=== PATIENT | female | born 1970 | race Caucasian/White ===

== ENCOUNTER 2019-12-24 08:28 | Emergency (ER) | payer OTHER, SELFPAY ==
[2019-12-24 09:10] VITALS: BP 144/92; PULSE 92; RESP 16; TEMP 37.2; O2SAT 96
--- NOTE | 2019-12-24 09:33 | ED.LOWEXIN ---
HPI - Extremity Injury (Lower) General Chief Complaint: Extremity Problem,Nontraumatic Stated Complaint: right knee pain Time Seen by Provider: 12/24/19 09:21 Source: patient and RN notes reviewed Mode of arrival: ambulatory History of Present Illness HPI Narrative: Patient presents today complaining of right knee pain. 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 She felt a pop in her knee and had subsequent swelling and pain. Over the weekend, she has compressed it, applied ice, limited her activity prior, and occasionally took ibuprofen. States her knee is improved, but pain increases when she is up and walking. She walks up and down stairs many times at work, as there is not an elevator in her school building. She does not plan to file Workmen's Compensation claim. States that she was told by her principal that she needed a note to return to work, detailing any restrictions. MD complaint: knee injury Related Data Home Medications Medication Instructions Recorded Confirmed lisinopril 20 1 tablet PO DAILY 10/30/19 12/24/19 mg-hydrochlorothiazide 25 mg tablet Allergies Allergy/AdvReac Type Severity Reaction Status Date / Time No Known Allergies Allergy Unknown Verified 12/24/19 09:15 Review of Systems Review of Systems: Narrative: CONSTITUTIONAL: Denies body aches, fever, chills, or sweats. EYES: Denies visual changes, redness, or discharge. ENT: Denies rhinorrhea, congestion, sore throat, or otalgia. CARDIOVASCULAR: Denies chest pain, palpitations, or edema. RESPIRATORY: Denies cough or dyspnea. GASTROINTESTINAL: Denies abdominal pain, nausea, vomiting, or diarrhea. GENITOURINARY: Denies dysuria or hematuria. SKIN: Denies rash, itching, or wounds. MUSCULOSKELETAL: Denies back pain, or myalgia.+ Right knee pain NEUROLOGIC: Denies headache, numbness, tingling, or weakness. PSYCH: Denies depression or anxiety. [facility] Past Medical History Medical History (Updated 12/24/19 @ 09:43 by Altagracia Ramachandran, [facility], ) Hypertension Social History Social History (Updated 10/30/19 @ 16:14 by Letitia Holliday) Smoking status: Never smoker Second hand tobacco smoke exposure: No Alcohol intake: current Substance use: never Substance use type: does not use Gender identity (if verbalized by the patient): Female Comments At time of signature, I have reviewed and agree with nursing past medical, surgical, social and family history unless otherwise noted. Please see nursing chart for further information. There is no relevant family history pertinent to the presenting complaint Exam Narrative: Exam Narrative: GENERAL: Well-appearing, well-nourished, and in no acute distress. HEAD: Normocephalic, atraumatic. EYES: EOMI. No redness or drainage. Conjunctivae normal. ENT: Mucous membranes pink and moist. NECK: Normal AROM. CHEST: No respiratory distress. EXTREMITIES: Right knee: Tenderness to the medial and superior aspect of the knee. Scant edema noted. No abnormal movement of the patella. No patellar tenderness. No tenderness of the patellar tendon. No posterior tenderness. Full AROM without increased pain. Distal sensation intact. Capillary refill normal. Pedal pulse normal.. SKIN: Warm, dry, no rash. NEURO: No focal deficits. Alert and oriented x3. Gait steady. PSYCH: Normal affect. No signs of depression or anxiety. Course Vital Signs Vital signs: Vital Signs Temperature 99.0 F 12/24/19 09:10 Pulse Rate 92 12/24/19 09:10 Respiratory Rate 16 12/24/19 09:10 Blood Pressure 144/92 H 12/24/19 09:10 Pulse Oximetry 96 12/24/19 09:10 Temperature 99.0 F 12/24/19 09:10 Pulse Rate 92 12/24/19 09:10 Respiratory Rate 16 12/24/19 09:10 Blood Pressure 144/92 H 12/24/19 09:10 Pulse Oximetry 96 12/24/19 09:10 Reviewed. Pt has been instructed to follow up with her PCP regarding her elevated b
== END 2019-12-24 09:50 | disposition home or self-care (01) ==
PROVIDERS: Emergency Provider Nurse Practitioner; PCP Family Medicine
DX: M25.561 Pain in right knee (principal); I10 Essential (primary) hypertension; M19.90 Unspecified osteoarthritis, unspecified site; E28.2 Polycystic ovarian syndrome
CPT/HCPCS: 99211; G0463

== ENCOUNTER → 2020-02-07 10:51 | Outpatient (CLI) | payer OTHER, SELFPAY ==
--- NOTE | ~2020-02-07 | MM_ITS ---
EXAMINATION: MM screening mely BI w madeleine HISTORY: Screening mammogram TECHNIQUE: Craniocaudal and mediolateral oblique 3-D tomosynthesis images were obtained and synthetic 2-D images were generated. CAD analysis was submitted and interpreted. COMPARISON: Comparison to multiple prior studies sequentially, with oldest reviewed study dated 02/17. BREAST PARENCHYMAL COMPOSITION: There are scattered areas of fibroglandular density. FINDINGS: Focal right breast mass upper outer quadrant with associated calcifications is unchanged. T here is no evidence of suspicious mass, calcification, or architectural distortion to suggest maligna ncy in either breast. There has been no suspicious interval change. IMPRESSION: 1. No mammographic evidence of malignancy. 2. Recommend routine screening mammography in one year. BI-RADS Category 2: Benign finding(s). Reviewed, dictated and finalized at location A.
== END ==
PROVIDERS: PCP Family Medicine; Visit Provider Nurse Practitioner Obstetrics & Gynecology
DX: Z12.31 Encounter for screening mammogram for malignant neoplasm of breast (principal)
CPT/HCPCS: 77063; 77067

== ENCOUNTER 2021-01-13 15:03 | Outpatient (RCR) | payer OTHER, SELFPAY ==
[2021-01-13 15:15] VITALS: BMI 50.8
== END 2021-03-30 10:29 | disposition home or self-care (01) ==
LOC: ANHDMC 15:03
PROVIDERS: PCP Family Medicine; Visit Provider Family Medicine
DX: E11.9 Type 2 diabetes mellitus without complications (principal); Z71.3 Dietary counseling and surveillance
CPT/HCPCS: 97802

== ENCOUNTER → 2021-02-20 15:05 | Outpatient (CLI) | payer OTHER, SELFPAY ==
--- NOTE | ~2021-02-20 | MM_ITS ---
EXAMINATION: MM screening [facility] BI w madeleine HISTORY: Screening mammogram TECHNIQUE: Craniocaudal and mediolateral oblique 3-D tomosynthesis images were obtained and synthetic 2-D images were generated. CAD analysis was submitted and interpreted. COMPARISON: 02/07/2020, 03/09/2017, 02/17/2017 BREAST PARENCHYMAL COMPOSITION: There are scattered areas of fibroglandular density. FINDINGS: Multiple oil cysts are seen throughout both breasts. There is stable focal asymmetry in the upper outer quadrant of the right breast. There is no evidence of suspicious mass, calcification, or architectural distortion to suggest malignancy in either breast. There has been no suspicious interv al change. IMPRESSION: 1. No mammographic evidence of malignancy. 2. Recommend routine screening mammography in one year. BI-RADS Category 2: Benign finding(s). Reviewed, dictated and finalized at location A.
== END ==
PROVIDERS: PCP Family Medicine; Visit Provider Nurse Practitioner Obstetrics & Gynecology
DX: Z12.31 Encounter for screening mammogram for malignant neoplasm of breast (principal)
CPT/HCPCS: 77063; 77067

== ENCOUNTER 2021-09-26 10:18 | Emergency (ER) | payer OTHER, SELFPAY ==
--- NOTE | ~2021-09-26 | CT_ITS ---
EXAMINATION: CT lumbar spine wo con DATE: 09/26/2021 10:59 INDICATION: Left low back pain radiating to the left leg TECHNIQUE: Computed tomography (CT) of the lumbar spine was performed without intravenous contrast. A utomated exposure control and iterative reconstruction technique were employed. The dose-length produ ct was 1404.31 mGy-cm. COMPARISON: None FINDINGS: 3 mm anterolisthesis L4 on L5. Alignment is otherwise normal. Small Schmorl's nodes along the superio r endplates of T12 and L1. Vertebral body heights are normal. Moderate to severe disc height loss at L5-S1. Mild disc height loss at L2-L3, L3-L4 and L4-L5. Diffuse hepatic steatosis. 2 mm nonobstructin g stone at the lower pole of the right kidney. Incompletely visualized approximately 10 cm uterine fi broid. Normal appendix. Paravertebral soft tissues are unremarkable. The following disc levels are sp ecifically discussed: T11-T12: Disc is mildly bulging. There is mild bilateral facet joint osteoarthritis. There is mild ri ght neural foraminal stenosis. There is no central canal stenosis. T12-L1: The disc does not extend beyond the endplate margin. There is mild bilateral facet joint oste oarthritis. There is no neural foraminal stenosis. There is no central canal stenosis. L1-L2: Disc is mildly bulging. There is no facet joint osteoarthritis. There is no neural foraminal s tenosis. There is no central canal stenosis. L2-L3: Disc is bulging. There is mild bilateral facet joint osteoarthritis. There is no neural forami nal stenosis. There is mild central canal stenosis. L3-L4: Disc is bulging. There is moderate left and mild right facet joint osteoarthritis. There is mi ld bilateral neural foraminal stenosis. There is mild central canal stenosis. L4-L5: Disc is bulging. There is moderate to severe bilateral facet joint osteoarthritis. There is mo derate bilateral neural foraminal stenosis. There is mild central canal stenosis. L5-S1: Disc is bulging. There is moderate left and severe right facet joint osteoarthritis. There is moderate bilateral neural foraminal stenosis. There is no central canal stenosis. IMPRESSION: 1. Moderate lumbar spondylosis. No acute osseous abnormality. 2. 10 cm uterine fibroid. Reviewed, dictated and finalized at location A.
[2021-09-26 10:22] VITALS: BP 129/73; PULSE 84; RESP 18; TEMP 36.7; O2SAT 100
--- NOTE | 2021-09-26 10:44 | ED.BACK ---
HPI - Back Pain/Injury General Chief Complaint: Back Pain/Injury Stated Complaint: BACK PAIN, LEG NUMBNESS Time Seen by Provider: 09/26/21 10:20 Source: patient Mode of arrival: wheelchair Limitations: no limitations History of Present Illness HPI Narrative: This is a 50-year-old female that presents to the emergency department for low back pain worsening over the last week. No recent injury or trauma. Reports the pain radiates into her left buttock and down her left leg. Pain is worse with movement and relieved with rest. Reports today the pain was making it difficult for her to ambulate which prompted her to be seen. She has been taken [id number] Tylenol with little relief. She does have an appointment to see orthopedics, but it is not till the end of the month. Denies fever, urinary symptoms, saddle anesthesia, or bowel/bladder incontinence. Related Data Allergies Allergy/AdvReac Type Severity Reaction Status Date / Time No Known Allergies Allergy Unknown Verified 07/01/21 15:46 Review of Systems Review of Systems: CONSTITUTIONAL: Denies fever SKIN: Denies rash MUSCULOSKELETAL: Reports back pain, joint pain, and myalgia. NEUROLOGIC: Denies numbness, or weakness. All systems reviewed & are unremarkable except as noted in HPI and below PMFSH Past Medical History Medical History Controlled diabetes mellitus type II without complication Hypertension Social History Social History Smoking status: Never smoker Second hand tobacco smoke exposure: No Alcohol intake: current Substance use: never Substance use type: does not use Gender identity (if verbalized by the patient): Female Spiritual care concerns: No Exam Narrative: GENERAL: Well-appearing, obese, and in no acute distress. HEAD: Normocephalic, atraumatic. EYES: EOMI. CHEST: Clear to auscultation. No respiratory distress. No wheezes rales or rhonchi HEART: Regular rate and rhythm. No murmur heard. Normal peripheral pulses. BACK: No midline spinal tenderness EXTREMITIES: Normal range of motion. No edema. Strength equal in bilateral lower extremities (5/5). Normal DP pulses. Normal sensation SKIN: Warm, dry, no rash. NEURO: No focal deficits. Alert and oriented x3. PSYCH: Normal mood and affect Course Vital Signs Vital signs: Vital Signs Temperature 98.0 F 09/26/21 10:22 Pulse Rate 84 09/26/21 10:22 Respiratory Rate 18 09/26/21 10:22 Blood Pressure 129/73 09/26/21 10:22 Pulse Oximetry 100 09/26/21 10:22 Temperature 98.0 F 09/26/21 10:22 Pulse Rate 84 09/26/21 10:22 Respiratory Rate 18 09/26/21 10:22 Blood Pressure 129/73 09/26/21 10:22 Pulse Oximetry 100 09/26/21 10:22 MDM - Back Pain/Injury MDM Narrative Medical decision making narrative: Patient presents to the ER for low back pain worsening over the last week. No recent injury or trauma. She is neurologically intact. CT scan of lumbar spine shows moderate lumbar spondylosis. No acute osseous abnormalities. She has a 10 cm uterine fibroid. Patient and family updated on case findings. She was instructed on care of sciatica. Will be started on a steroid taper. Instructed to follow-up with orthopedics as scheduled. She was given warnings to return to the ER Imaging Data Radiologist's impression: ITS Impressions Lumbar Spine CT 09/26/21 11:03 IMPRESSION: 1. Moderate lumbar spondylosis. No acute osseous abnormality. 2. 10 cm uterine fibroid. Critical Care Time Critical Care Time Critical Care Time: No Discharge Plan Discharge Clinical Impression: Sciatica Qualifiers: Laterality: left Qualified Code(s): M54.32 - Sciatica, left side Fibroid, uterine Qualifiers: Uterine leiomyoma location: unspecified location Qualified Code(s): D25.9 - Leiomyoma of uterus, unspecified Patient Disposition: Home, Self
[2021-09-26] MEDS: predniSONE 20 MG TABLET 60 MG PO (11:00)
[2021-09-26] MEDS: KETOROLAC (*BKC) 60 MG/2 ML VIAL IM (11:07)
[2021-09-26] MEDS: diazePAM INJ (*CRX) 10 MG/2 ML SYRINGE 5 MG IM (11:07)
== END 2021-09-26 12:22 | disposition home or self-care (01) ==
PROVIDERS: Emergency Provider Emergency Medicine; PCP Family Medicine
DX: M54.42 Lumbago with sciatica, left side (principal); D25.9 Leiomyoma of uterus, unspecified; I10 Essential (primary) hypertension; E11.9 Type 2 diabetes mellitus without complications; M47.816 Spondylosis without myelopathy or radiculopathy, lumbar region
CPT/HCPCS: 72131; 96372; 99284; J1885; J3360; J7512

== ENCOUNTER 2021-10-23 00:26 | Emergency (ER) | payer OTHER, SELFPAY ==
[2021-10-23 00:28] VITALS: BP 150/96; PULSE 110; RESP 19; TEMP 36.6; O2SAT 99
--- NOTE | 2021-10-23 01:03 | PC.NURSE ---
Pt to INTAKE desk and states she is not willing to wait for hours, I will just go to another hospital. Pt to car w/ at side.
== END 2021-10-24 02:12 | disposition left against medical advice (07) ==
LOC: ANHED 01:07
PROVIDERS: PCP Family Medicine
DX: Z53.21 Procedure and treatment not carried out due to patient leaving prior to being seen by health care provider (principal)
CPT/HCPCS: 99199

== ENCOUNTER 2021-12-04 11:53 | Outpatient (CLI) | payer OTHER, SELFPAY ==
--- NOTE | 2021-12-04 11:59 | ECG_ITS ---
Measurements Intervals [place] Rate: 96 P: 56 [place]: 139 QRS: 20 QRSD: 90 T: 73 QT: 336 QTc: 425 Interpretive Statements SINUS RHYTHM DELAYED PRECORDIAL R/S TRANSITION BORDERLINE T WAVE ABNORMALITY- HIGH LATERAL LEADS BASELINE ARTIFACT- II, III, AVR, AVF BORDERLINE ECG Electronically Signed On 12-04-2021 12:47:20 SANITOR by Brenton Nunez D.O.
== END 2021-12-04 11:54 | disposition home or self-care (01) ==
PROVIDERS: PCP Family Medicine; Visit Provider Obstetrics & Gynecology
DX: Z01.818 Encounter for other preprocedural examination (principal); E11.9 Type 2 diabetes mellitus without complications; D21.9 Benign neoplasm of connective and other soft tissue, unspecified
CPT/HCPCS: 36415; 86850; 86900; 86901; 93005

== ENCOUNTER 2021-12-08 00:39 | Day surgery (SDC) | payer OTHER, SELFPAY ==
[2021-12-03 11:10] VITALS: BMI 48.6
--- NOTE | 2021-12-03 11:31 | PC.NURSE ---
Report to the Outpatient Waiting Room, entrance under the green pavilion located off [facility], at time 9:30 on date 12/08/21. OR Time: 11:30. - You will be asked a series of questions to screen for COVID 19 for your protection. - A mask is required within the hospital. - No visitors are allowed at this time. Preoperative COVID Testing Requirements: No COVID Test needed if: (proof is required; if not received patient will have Rapid Test prior to entry) - Patient has received COVID Vaccine at least 14 days prior to procedure date or - Patient has positive COVID test result within last 90 days of surgery date. COVID Test needed if above criteria is not met Patients may have clear liquids (water, carbonated beverages, clear teas, apple juice) until 3 hours prior to surgery (8:30) with a maximum of 20 ounces. - No food from midnight until time of surgery Take the following medications with a SIP of water the morning of surgery: ESCITALOPRAM Medications to discontinue per physician: VITAMINS/SUPPLEMENTS Date to take last dose: 12/04/21 Please no make-up, nail ukrainian, hairspray, perfume, deodorant, or body powder the day of surgery. No jewelry (including any body piercings) or valuables the day of surgery, leave them at home. Please take a shower or bath the night before, or the morning of, surgery with an antibacterial soap. Wear comfortable, loose fitting clothing. - Jewelry must be removed prior to entering the operating room. Rings and piercings that are not removed may be cut off. - The hospital will not accept responsibility for valuables. - Please leave all valuables, including medications, at home the day of surgery. If you are going home after surgery, a licensed test driver must drive you home. - NO public transportation without another adult. - We recommend that an adult stay with you for 24 hours following discharge. - We also recommend that you do not drive, make important decision, drink alcoholic beverages, or take any drugs that were not prescribed by your health care provider for at least 24 hours after your discharge time. Follow any additional instructions given to you from your surgeon. Telephone instructions given to DEEPIKA CHACON and asked if any additional questions and then verbalized understanding. Patient advised to call surgeon office or pre surgery nurse liaison [phone] if any additional questions.
--- NOTE | 2021-12-07 13:46 | WPDANESEPPF ---
Anes - Initial Pre Proc Eval Procedure: Operation Date: 12/08/21 11:30 Proposed Procedures p Total Laparoscopic Hysterectomy - Carlos Kimbrough MD Date/Time: 12/07/21 13:46 Surgeon: Carlos Kimbrough MD Pre Op Diagnosis: Fibroid Uterus Patient Data Age: 51 Gender: F Height: 1.65 m Weight: 132.45 kg Allergies Allergy/AdvReac Type Severity Reaction Status Date / Time No Known Allergies Allergy Unknown Verified 12/08/21 09:38 Home Medications Medication Instructions Recorded Confirmed Type escitalopram oxalate 5 mg tablet 5 mg PO DAILY #90 tablet 08/17/21 12/08/21 Rx lisinopril 30 mg tablet 30 mg PO DAILY #30 tablet 11/11/21 12/08/21 Rx multivitamin 1 tablet PO DAILY 12/03/21 12/08/21 History dulaglutide 0.75 mg/0.5 mL 0.75 mg SUBCUT WEEKLY #2 ml 12/04/21 12/08/21 Rx subcutaneous pen injector Patient hx anesthesia problems: none Family hx anesthesia problems: none Results Review: All pre-operative results and documents have been reviewed as part of the pre-operative evaluation. [facility] Past Medical History Medical History (Updated 12/07/21 @ 13:51 by Austin Almendarez MD) Controlled diabetes mellitus type II without complication Degenerative joint disease of left hip Diabetes mellitus out of control Essential (primary) hypertension Fibroid Hypertension Left hip pain Lumbar disc disease Morbid obesity with BMI of 40.0-44.9, adult Pure hyperglyceridemia Surgical History Surgical History History of lithotripsy History of partial hysterectomy Family History Family History Unknown Hypertension Mom Cardiovascular disease Mom Diabetes mellitus grandparents, aunts HLD (hyperlipidemia) MOM Father Chronic leukemia Social History Social History Smoking status: Never smoker Second hand tobacco smoke exposure: No Alcohol intake: current Alcohol use details: VERY RARE Substance use: never Substance use type: does not use Living arrangements: with family Gender identity (if verbalized by the patient): Female Spiritual care concerns: No Anes - Eval Final PreProcedure Day of Procedure 12/07/21 13:46 Patient weight: obese Heart: regular rate and rhythm Lungs: clear to auscultation and normal air movement Airway: Mallampati scale class II Neurological: alert and oriented Last oral intake: >/= 8 hours ASA classification: III Emergent: no Anesthetic plan: proceed Anesthesia type and monitoring: general ETT Results Review: All pre-operative results and documents have been reviewed as part of the pre-operative evaluation. Informed Consent: The patient's anesthetic plan and its attendant risks and benefits were discussed with the patient/family/POA. Questions were solicited and answers provided to the satisfaction of the patient/family/POA.
[2021-12-08] VITALS (11 sets, daily range): BP systolic 105–177; BP diastolic 61–98; PULSE 81–104; RESP 14–18; TEMP 36.1–36.9; O2SAT 93–100
[2021-12-08] MEDS: ACETAMINOPHEN 500 MG TABLET 1000 MG PO (09:44)
[2021-12-08 10:14] LABS: Glucose Point of Care 108 mg/dl (65-105)
[2021-12-08] MEDS: KETOROLAC 15 MG/ML VIAL (*BKC) IV PUSH (10:16)
[2021-12-08] MEDS: LACTATED RINGERS 1,000 ML 30 ML IV CONT ×2 (10:16→14:39)
--- NOTE | 2021-12-08 10:26 | WPDHPUPDATE1 ---
History and Physical Update Update Date/Time: 12/08/21 10:26 History and Physical has been reviewed, including an updated exam of the patient. There are NO changes in the patient's condition. Risks, benefits, and alternatives have been discussed and questions answered. Patient agrees to proceed with procedure.
[2021-12-08] MEDS: ceFAZolin 3 GM/D5W 100 ML 100 ML IVPB (10:48)
--- NOTE | 2021-12-08 14:23 | W.PM.PROC2 ---
Procedure Note - Detailed Date of Procedure 12/08/21 Pre-op Diagnosis Fibroid Uterus , pelvic pain Post-op Diagnosis same Procedure Performed Total laparoscopic hysterectomy and bilateral salpingectomy. Surgeon Carlos Kimbrough MD Anesthesia general Indications Uterine myoma, pelvic pain Findings Very large fibroid uterus, absent tubes and ovaries Description of Procedure This patient was taken to the operating room. She was prepped and draped in the dorsal lithotomy position after induction of general anesthesia. A 5 mm skin incision was made in the left upper quadrant the abdomen. A 5 mm trocar was inserted into the intrauterine cavity under direct visualization of the scope. Pneumoperitoneum was achieved. A left lower quadrant 11 mm incision was made with scalpel. An 11 mm trocar was inserted into the anterior abdominal cavity under direct visualization the scope. A 5 mm infraumbilical incision was made with a scalpel and a 5 mm trocar was inserted the intra-abdominal cavity under direct visualization of the scope. The left upper quadrant incision was moved forward with another incision and trocar placement later in the case. A right lower quadrant trocar was inserted In identical fashion to the others. expected was placed in vagina and a tenaculum was placed on the anterior cervical vaginal juncture. In a stepwise fashion along the lateral aspects of the uterus the round ligament and broad ligaments were cauterized transected down to the level of the uterine arteries in a stepwise fashion. A bladder flap was created as the bladder was moved distally to the end of the cervix and over the Tenaculum. The bilateral uterine arteries were cauterized and transected. The uterus was then amputated from the cervix. Colpotomy was then performed down on to the tenaculum.. In a circumferential fashion the vagina was transected using unipolar cautery. The cervix was then placed in the vagina and a pneumo occluder was placed in the vagina as well transvaginally. cervix was placed in the vagina from the pelvis. The vagina was then closed with a 0 V lock suture running fashion. The uterine fibroid was removed from inside the uterus using unipolar cautery to cut across the uterine fundus. Using sharp and blunt dissection the Fibroid was removed from the uterus.. Cautery was required to also free up fibroid. A small 7 cm low abdominal incision was made /transverse. Was made with a scalpel on the skin the. This was carried down the level the fascia the knife. The fascia incised in the midline. The fascia was the vaginal incision was then extended laterally with Esposito scissors. The rectus muscles were . The preperitoneal fat peritoneum was dissected bluntly and the peritoneal cavity is entered bluntly. The peritoneal incision was centered laterally. The fibroid in the uterus were grasped and taken out through this small incision just big enough for the hand. The fascia was closed with 0 Vicryl running lock fashion. The subcutaneous fat was closed with 3-0 Vicryl interrupted fashion. The skin was closed with subcuticular 4 Monocryl covered with Dermabond. The pelvis was irrigated with copious amounts antibiotic irrigation. The ureters were again examined and found to be intact and flowing freely under the uterine arteries into the bladder. The bladder was intact. It was examined directly. The vagina was irrigated with Betadine solution after removal of the Pneumo occluder. The patient was taken to recovery room. She was stable condition. Sponge lap and needle counts were correct x2. Estimated Blood Loss 600 Urine Output -800.0 Drains Yes Packing No Pathology yes Complications No immediate complications Condition stable Disposition floor
[2021-12-08 15:04] LABS: Glucose Point of Care 156 mg/dl (65-105)
[2021-12-08] MEDS: SODIUM CHLORIDE 0.9% IV 1,000 ML 100 ML IV CONT (16:35)
[2021-12-08] MEDS: KETOROLAC 30 MG/ML VIAL (*BKC) IV PUSH ×2 (17:27→23:15)
[2021-12-08] MEDS: HYDROcodone/acetaminophen (*CRX) 10-325 MG TABLET 1 TAB PO (20:13)
[2021-12-08] MEDS: HYDROcodone/acetaminophen (*CRX) 5-325 MG TABLET 1 TAB PO (23:15)
[2021-12-09] MEDS: HYDROcodone/acetaminophen (*CRX) 5-325 MG TABLET 1 TAB PO ×2 (02:25→05:48)
[2021-12-09 03:30] VITALS: BP 123/60; PULSE 99; RESP 16; TEMP 37.1; O2SAT 98
[2021-12-09 05:44] LABS: Basophils Percent Auto 0.3 % (0.2-1.2); Eosinophils Absolute Auto 0.1 K/mm3 (0-0.3); Eosinophils Percent Auto 0.7 % (0-4.4); Hematocrit 33.5 % (37.0-47.0); Hemoglobin 10.7 g/dL (12.0-15.0); Immature Granulocyte Absolute 0.03 K/mm3 (0.00-0.031); Immature Granulocyte Percent A 0.3 % (0-0.5); Lymphocytes Absolute Auto 2.08 K/mm3 (0.9-3.2); Lymphocytes Percent Auto 21.2 % (18.3-44.2); Mean Corpuscular HGB Conc 31.9 g/dl (32-36); Mean Corpuscular Hemoglobin 30.1 pg (26-34); Mean Corpuscular Volume 94.1 fl (80-100); Mean Platelet Volume 8.6 fl (7.4-10.4); Monocytes Absolute Auto 0.8 K/mm3 (0.1-0.6); Monocytes Percent Auto 8.2 % (2.6-8.5); Neutrophils Absolute Auto 6.8 K/mm3 (1.3-6.7); Neutrophils Percent Auto 69.3 % (45.5-73.1); Platelet Count Result 296 k/mm3 (150-375); Red Blood Count 3.56 M/mm3 (4.2-5.4); Red Cell Distribution Width 13.2 % (11.5-14.5); White Blood Count 9.8 K/mm3 (4.5-10.0)
[2021-12-09] MEDS: IBUPROFEN 600 MG TABLET PO (05:48)
--- NOTE | 2021-12-09 07:26 | PM.GYNPNOP ---
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 BONDING MACHINE OPERATOR- PN:Subj Post-Op Subjective Date/time seen: 12/09/21 07:26 Subjective: patient reports feeling better, patient has no complaints and pain is well controlled Exam Const: General: healthy appearing, comfortable and no acute distress Resp: Auscultation: clear to auscultation bilaterally, no rales, no rhonchi and no wheezes Cardio: Rate: regular rate Heart sounds: no click, no murmurs and no rubs GI: Inspection: non-distended Auscultation: normal bowel sounds Extrem: General: normal to inspection, no pedal edema and no calf tenderness SHELL MOLD BONDING MACHINE OPERATOR - PN: Obj Data Vital Signs Vital Signs: Vital Signs - 24 hr 12/08/21 09:52 12/08/21 14:39 12/08/21 14:50 Temperature 98.3 F 98.0 F Pulse Rate 97 91 81 Respiratory Rate 18 14 14 Blood Pressure 177/98 H 133/87 105/61 Pulse Oximetry 97 96 93 12/08/21 15:05 12/08/21 15:20 12/08/21 15:35 Temperature Pulse Rate 87 84 87 Respiratory Rate 14 16 16 Blood Pressure 106/68 120/81 139/95 H Pulse Oximetry 94 95 100 12/08/21 15:50 12/08/21 16:05 12/08/21 16:15 Temperature 97.0 F L Pulse Rate 85 89 89 Respiratory Rate 16 16 16 Blood Pressure 132/92 H 135/93 H Pulse Oximetry 97 99 99 12/08/21 20:00 12/08/21 23:15 12/09/21 03:30 Temperature 98.4 F 98.3 F 98.8 F Pulse Rate 99 104 H 99 Respiratory Rate 16 16 16 Blood Pressure 138/86 130/82 123/60 Pulse Oximetry 98 97 98 Intake/Output Intake/Output: Intake & Output 12/06/21 12/07/21 12/08/21 12/09/21 23:59 23:59 23:59 23:59 Intake Total 350 1000 Output Total 400 550 Balance -50 450 Meds/Results Medications: Active Medications Generic Name Dose Route Start Last Admin Trade Name Freq PRN Reason Stop Dose Admin Hydrocodone Bitart/Acetaminophen 1 tab 12/08/21 16:06 12/09/21 05:48 Hydrocodone/Acetaminophen (*Crx) 5-325 Mg Tablet PO 1 tab Q3H PRN Administration Pain Rated 5 or Less Hydrocodone Bitart/Acetaminophen 1 tab 12/08/21 16:06 12/08/21 20:13 Hydrocodone/Acetaminophen (*Crx) 10-325 Mg Tablet PO 1 tab Q3H PRN Administration Pain Rated 6 or Greater Enoxaparin Sodium 40 mg 12/09/21 09:00 Enoxaparin 40 Mg/0.4 Ml Syringe SUB-Q DAILY [facility] Escitalopram Oxalate 5 mg 12/09/21 09:00 Escitalopram Oxalate 5 Mg Tablet PO DAILY [facility] Sodium Chloride 1,000 mls @ 100 mls/hr 12/08/21 16:55 12/09/21 02:26 Normal Saline Iv IV CONT Infused .Q10H TOMMY Infusion Ibuprofen 600 mg 12/08/21 16:06 12/09/21 05:48 Ibuprofen 600 Mg Tablet PO 600 mg Q6H PRN Administration Cramping Ketorolac Tromethamine 30 mg 12/08/21 16:06 12/08/21 23:15 Ketorolac 30 Mg/Ml Vial (*Bkc) IV PUSH 12/13/21 16:05 30 mg Q6H PRN Administration Pain Rated 4-6 Lisinopril 30 mg 12/09/21 09:00 Lisinopril 10 Mg Tablet PO DAILY [facility] Miscellaneous Information 0 each 12/08/21 00:01 Trulicity Is Nonformulary - Can Patient Bring From Home? XX 01/07/22 00:00 CLARIFY [facility] Multivitamins Therapeutic 1 tablet 12/09/21 09:00 Multivitamins Therapeutic Tab (*Bkc) PO DAILY [facility] Naloxone HCl 0.1 mg 12/08/21 16:06 Naloxone Hcl 0.4 Mg/Ml Vial IV PUSH Q2M PRN Respiratory rate less than 10 Non-Formulary Medication 0.75 mg 12/15/21 09:00 Dulaglutide [Trulicity] SUB-Q 01/14/22 08:59 WEEKLY [facility] Ondansetron HCl 4 mg 12/08/21 16:06 Ondansetron Inj 4 Mg/2 Ml Vial IV PUSH Q6H PRN Nausea And Vomiting Labs CBC & Chem
[2021-12-09] MEDS: ESCITALOPRAM OXALATE 5 MG TABLET PO (09:31)
[2021-12-09] MEDS: lisinopriL 10 MG TABLET 30 MG PO (09:31)
[2021-12-09] MEDS: MULTIVITAMINS THERAPEUTIC TAB (*BKC) 1 TABLET PO (09:31)
[2021-12-09] MEDS: ENOXAPARIN 40 MG/0.4 ML SYRINGE SUB-Q (09:32)
[2021-12-09 09:34] LABS: Glucose Point of Care 194 mg/dl (65-105)
[2021-12-09 10:30] VITALS: BP 130/86; PULSE 72; PULSE 99; RESP 16; RESP 18; TEMP 36.9; O2SAT 98
[2021-12-09] MEDS: HYDROcodone/acetaminophen (*CRX) 10-325 MG TABLET 1 TAB PO (10:58)
--- NOTE | 2021-12-09 12:18 | P.PNAN_ITS ---
Anes - Prog Note Post-Op Date/Time: 12/09/21 12:18 Cardiovascular status: normal Respiratory status: normal Airway patency: baseline Mental status: baseline Post-Op hydration status: normal Vital Signs: Last Vital Signs Temp 98.8 F 12/09/21 03:30 Pulse 99 12/09/21 03:30 Resp 16 12/09/21 03:30 BP 123/60 12/09/21 03:30 Pulse Ox 98 12/09/21 03:30 Pain Score (VAS): 11/30 I/O: Intake & Output 12/08/21 12/09/21 12/09/21 23:59 07:59 15:59 Intake Total 250 1000 Output Total 400 550 300 Balance -150 450 -300 Laboratory Tests 12/09/21 03:44 12/08/21 12/09/21 12/09/21 15:01 03:44 09:28 WBC 9.8 RBC 3.56 L Hgb 10.7 L Hct 33.5 L MCV 94.1 MCH 30.1 MCHC 31.9 L RDW 13.2 Plt Count 296 MPV 8.6 Immature Gran % (Auto) 0.3 Neut % (Auto) 69.3 Lymph % (Auto) 21.2 [place] % (Auto) 8.2 Eos % (Auto) 0.7 Baso % (Auto) 0.3 Lymph # (Auto) 2.08 [place] # (Auto) 0.8 H Eos # (Auto) 0.1 Baso # (Auto) 0.0 Abs Immat Gran (auto) 0.03 Absolute Neuts (auto) 6.8 H Absolute Nucleated RBC 0.0 Nucleated RBC % 0.0 POC Capillary Glucose 156 H 194 H Post-procedural complaints: none Patient Feedback: Patient satisfied with anesthetic care.
== END 2021-12-09 11:58 | disposition home or self-care (01) ==
LOC: ANHSURGERY 09:33 → ANHOB2 16:10
PROVIDERS: PCP Family Medicine; Visit Provider Obstetrics & Gynecology
PROC: 0UT9FZZ Resection of Uterus, Via Natural or Artificial Opening With Percutaneous Endoscopic Assistance (ICD-10-PCS; CPT 58573; principal; 2021-12-08 11:30)
DX: D25.0 Submucous leiomyoma of uterus (principal); D25.1 Intramural leiomyoma of uterus; R10.2 Pelvic and perineal pain; I10 Essential (primary) hypertension; E11.9 Type 2 diabetes mellitus without complications; E78.1 Pure hyperglyceridemia; Z79.899 Other long term (current) drug therapy; E66.01 Morbid (severe) obesity due to excess calories; Z68.42 Body mass index [BMI] 45.0-49.9, adult
CPT/HCPCS: 58573; 36415; 82948; 85025; 86850; 86900; 86901; 88307; 93005; 99199; A9270; J0690; J1650; J1885; J2250; J2270; J2370; J2405; J2710; J3010; J7030; J7120

== ENCOUNTER 2022-01-05 09:50 | Outpatient (CLI) | payer OTHER, SELFPAY ==
--- NOTE | ~2022-01-05 | XR_ITS ---
EXAMINATION: XR abdomen/kub 1V INDICATION: Patient one month status post treatment for ureteral stone TECHNIQUE: Supine views of the abdomen were obtained on 2 radiographs. COMPARISON: 04/22/2015 FINDINGS: There appear to be phleboliths of the left pelvis. No definite urolithiasis is seen. The juan daniel wel gas pattern is normal. There is mild osteoarthritis of the hips. IMPRESSION: 1. No definite urolithiasis identified. Reviewed, dictated and finalized at location A. EIN SCIENTIST
== END 2022-01-05 09:51 | disposition home or self-care (01) ==
LOC: ANHIMG 09:55
PROVIDERS: PCP Family Medicine; Visit Provider Urology
DX: N20.1 Calculus of ureter (principal)
CPT/HCPCS: 74018

== ENCOUNTER → 2022-02-22 15:32 | Outpatient (CLI) | payer OTHER, SELFPAY ==
--- NOTE | ~2022-02-22 | MM_ITS ---
EXAMINATION: MM screening mely BI w madeleine HISTORY: Screening TECHNIQUE: Craniocaudal and mediolateral oblique 3-D tomosynthesis images were obtained and synthetic 2-D images were generated. CAD analysis was submitted and interpreted. COMPARISON: Comparison to multiple prior studies sequentially, with oldest reviewed study dated 02/17. BREAST PARENCHYMAL COMPOSITION: There are scattered areas of fibroglandular density. FINDINGS: Stable benign-appearing breast calcifications There is no evidence of suspicious mass, calc ification, or architectural distortion to suggest malignancy in either breast. There has been no susp icious interval change. IMPRESSION: 1. No mammographic evidence of malignancy. 2. Recommend routine screening mammography in one year. BI-RADS Category 1: Negative Reviewed, dictated and finalized at location A.
== END ==
PROVIDERS: Visit Provider Nurse Practitioner Obstetrics & Gynecology
DX: Z12.31 Encounter for screening mammogram for malignant neoplasm of breast (principal)
CPT/HCPCS: 77063; 77067

== ENCOUNTER 2022-07-19 16:05 | Outpatient (CLI) | payer OTHER, SELFPAY ==
--- NOTE | ~2022-07-19 | XR_ITS ---
EXAM: XR abdomen/kub 1V DATE: 07/19/2022 16:34 HISTORY: URETERAL STONE 6 MONTH CHECK UP POST LITHO,NO PAIN CURRENTLY . COMPARISON: 01/05/2022. FINDINGS: Clear lung bases. Normal bowel gas pattern. Hepatomegaly. Left-sided phleboliths. Degenera tive change in the lumbar spine, pubic symphysis, and bilateral hips. IMPRESSION: No radiographic evidence of urolithiasis. Reviewed, dictated and finalized at location K.
--- NOTE | ~2022-07-19 | US_ITS ---
EXAMINATION: US retroperitoneal comp DATE: 07/19/2022 17:20 INDICATION: Ureteral stone TECHNIQUE: Multiple ultrasound grayscale images of the kidneys were obtained. COMPARISON: None. FINDINGS: The right kidney measures 13.5 x 5.7 x 6.4 cm. The left kidney measures 13.2 x 6.3 x 6.5 cm. The kidn eys demonstrate normal echogenicity. There is no hydronephrosis in either kidney. No stones identifi ed. The bladder is normal. IMPRESSION: 1. Normal kidneys without hydronephrosis. Reviewed, dictated and finalized at location A.
== END 2022-07-19 16:06 | disposition home or self-care (01) ==
PROVIDERS: PCP Family Medicine; Visit Provider Urology
DX: N20.1 Calculus of ureter (principal)
CPT/HCPCS: 74018; 76770

== ENCOUNTER → 2023-01-29 08:24 | Outpatient (CLI) | payer OTHER, SELFPAY ==
--- NOTE | ~2023-01-29 | US_ITS ---
Renal-Bladder ultrasound Clinical History: Ureteral stone Technique: Real-time sonographic imaging of the kidneys and urinary bladder was performed. Findings: The right kidney measures 7.7 cm in length and the left kidney measures 12.7 cm. There is n o hydronephrosis or renal calculus identified. Renal cortical echogenicity is within normal limits. N o renal mass lesion is identified. The urinary bladder is partially distended at the time of this exam. No intraluminal echoes are ident ified. No abnormal wall thickening is seen. Impression: Unremarkable ultrasound of the kidneys and urinary bladder. Reviewed, dictated and finalized at location M. 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
--- NOTE | ~2023-01-29 | XR_ITS ---
Supine and upright views of the abdomen Clinical history: Ureteral stone COMPARISON: 07/19/2022 Findings: Bowel gas pattern is nonspecific. No evidence for obstruction or free air. No abnormal mass lesion or abnormal calcification is seen. Probable calcified left pelvic phlebolith is unchanged. Os seous structures are intact. Impression: No significant abnormality is seen. Reviewed, dictated and finalized at [facility]. [employer] Impression: No significant abnormality is seen.
== END ==
PROVIDERS: PCP Family Medicine; Visit Provider Urology
DX: N20.1 Calculus of ureter (principal)
CPT/HCPCS: 74018; 76770

== ENCOUNTER → 2023-04-04 15:43 | Outpatient (CLI) | payer OTHER, SELFPAY ==
--- NOTE | ~2023-04-04 | MM_ITS ---
EXAMINATION: MM screening [facility] BI w madeleine HISTORY: Screening mammogram TECHNIQUE: Craniocaudal and mediolateral oblique 3-D tomosynthesis images were obtained and synthetic 2-D images were generated. CAD analysis was submitted and interpreted. COMPARISON: 02/22/2022, 02/20/2021, 02/07/2020 BREAST PARENCHYMAL COMPOSITION: There are scattered areas of fibroglandular density. FINDINGS: Multiple oil cysts are again noted in both breasts. No suspicious mass, calcification, or a rchitectural distortion are identified in either breast to suggest malignancy. There has been no susp icious interval change. IMPRESSION: 1. No mammographic evidence of malignancy. 2. Recommend routine screening mammography in one year. BI-RADS Category 2: Benign finding(s). Reviewed, dictated and finalized at location A.
== END ==
PROVIDERS: PCP Family Medicine; Visit Provider Nurse Practitioner Obstetrics & Gynecology
DX: Z12.31 Encounter for screening mammogram for malignant neoplasm of breast (principal)
CPT/HCPCS: 77063; 77067

== ENCOUNTER 2023-10-04 00:37 | Day surgery (SDC) | payer OTHER, SELFPAY ==
[2023-09-20 14:06] VITALS: BMI 39.2
--- NOTE | 2023-09-30 09:36 | SUR.PREOP ---
Patient called regarding upcoming procedure. Reviewed preop instructions, appointment times, and procedure prep.
[2023-10-04 07:50] VITALS: BP 135/82; PULSE 74; RESP 18; TEMP 35.9; O2SAT 99
--- NOTE | 2023-10-04 08:00 | PM.HPGS ---
History of Present Illness History of Present Illness Consent: Risks, benefits, and alternatives have been discussed and questions answered. Patient agrees to proceed with procedure. Chief complaint: neoplasm screening Narrative: Aristeo Bashir is a 52 year old female Presents for screening colonoscopy. Patient's current weight appetite and bowel movements are normal. Patient denies abdominal pain. She has had no bleeding. Family history is noncontributory. Review of Systems Review of Systems: Review of systems noncontributory. [facility] Past Medical History Medical History Controlled diabetes mellitus type II without complication Degenerative joint disease of left hip Diabetes mellitus out of control Essential (primary) hypertension Fibroid Hypertension Left hip pain Lumbar disc disease Morbid obesity with BMI of 40.0-44.9, adult Obesity Pure hyperglyceridemia Surgical History Surgical History History of lithotripsy History of lumbar fusion s/p L4-S1 fusion/fixation History of partial hysterectomy Family History Family History Unknown Hypertension Mom Cardiovascular disease Mom Diabetes mellitus grandparents, aunts HLD (hyperlipidemia) MOM Father Chronic leukemia Social History Social History Social History: Smoking status: Never smoker Second hand tobacco smoke exposure: No Alcohol intake: current Alcohol use details: Rarely Substance use: never Substance use type: does not use Living arrangements: with family Occupation/Education: occupation Gender identity (if verbalized by the patient): Female Sexual Orientation (if Verbalized by the Patient): Straight or Heterosexual Spiritual care concerns: No Meds Home Medications and Allergies Home Medications Medication Instructions Recorded Confirmed Type multivitamin 1 tablet PO DAILY 12/03/21 09/20/23 History lisinopril 30 mg tablet 30 mg PO DAILY #90 tabs 11/29/22 09/20/23 Rx blood sugar diagnostic (OneTouch #100 ea 09/07/23 Rx Verio test strips) hydrochlorothiazide 25 mg tablet 25 mg PO DAILY 09/20/23 09/20/23 History semaglutide 0.25 mg or 0.5 mg (2 0.5 mg (0.736 mL) subcut WEEKLY #3 09/27/23 10/04/23 Rx mg/3 mL) subcutaneous pen injector mL (Ozempic) Allergies Allergy/AdvReac Type Severity Reaction Status Date / Time No Known Allergies Allergy Unknown Verified 10/04/23 07:48 Vital Signs Vital Signs - 24 hr 10/04/23 07:50 Temperature 96.7 F L Pulse Rate 74 Respiratory Rate 18 Blood Pressure 135/82 Pulse Oximetry 99 Oxygen Delivery Room Air Exam Narrative: Physical exam reveals patient to be alert. Vital signs stable. HEENT exam is unremarkable. Patient is anicteric. Lungs are clear to auscultation and percussion. Heart is without murmur or extra sounds. Abdomen bowel sounds are present soft nontender with no organomegaly. Digital external rectal exam normal. Assessment and Plan Assessment and plan (1) Encounter for screening colonoscopy: Code(s): Z12.11 - Encounter for screening for malignant neoplasm of colon Status: Acute Assessment and Plan: Patient presents today for screening colonoscopy. She appears to be at average risk for colon polyps. Further recommendations may be given after endoscopy.
[2023-10-04] MEDS: LACTATED RINGERS 1,000 ML 150 ML IV CONT (08:12)
[2023-10-04 08:21] LABS: Glucose Point of Care 92 mg/dl (65-105)
--- NOTE | 2023-10-04 08:39 | WPDANESEPPF ---
Anes - Initial Pre Proc Eval Procedure: Operation Date: 10/04/23 09:00 Proposed Procedures p Colonoscopy - Alberto Galvin MD Date/Time: 10/04/23 08:39 Surgeon: Alberto Galvin MD Pre Op Diagnosis: neoplasm screening Patient Data Age: 52 Gender: F Height: 1.65 m Weight: 111.2 kg Last Vital Signs Temp 96.7 F L 10/04/23 07:50 Pulse 74 10/04/23 07:50 Resp 18 10/04/23 07:50 BP 135/82 10/04/23 07:50 Pulse Ox 99 10/04/23 07:50 O2 Del Method Room Air 10/04/23 07:50 Allergies Allergy/AdvReac Type Severity Reaction Status Date / Time No Known Allergies Allergy Unknown Verified 10/04/23 07:48 Home Medications Medication Instructions Recorded Confirmed Type multivitamin 1 tablet PO DAILY 12/03/21 09/20/23 History lisinopril 30 mg tablet 30 mg PO DAILY #90 tabs 11/29/22 09/20/23 Rx blood sugar diagnostic (OneTouch #100 ea 09/07/23 Rx Verio test strips) hydrochlorothiazide 25 mg tablet 25 mg PO DAILY 09/20/23 09/20/23 History semaglutide 0.25 mg or 0.5 mg (2 0.5 mg (0.736 mL) subcut WEEKLY #3 09/27/23 10/04/23 Rx mg/3 mL) subcutaneous pen injector mL (Ozempic) Laboratory Tests 10/04/23 08:09 POC Capillary Glucose 92 mg/dl (65-105) Patient hx anesthesia problems: none Family hx anesthesia problems: none Results Review: All pre-operative results and documents have been reviewed as part of the pre-operative evaluation. [facility] Past Medical History Medical History Controlled diabetes mellitus type II without complication Degenerative joint disease of left hip Diabetes mellitus out of control Essential (primary) hypertension Fibroid Hypertension Left hip pain Lumbar disc disease Morbid obesity with BMI of 40.0-44.9, adult Obesity Pure hyperglyceridemia Surgical History Surgical History History of lithotripsy History of lumbar fusion s/p L4-S1 fusion/fixation History of partial hysterectomy Family History Family History Unknown Hypertension Mom Cardiovascular disease Mom Diabetes mellitus grandparents, aunts HLD (hyperlipidemia) MOM Father Chronic leukemia Social History Social History Social History: Smoking status: Never smoker Second hand tobacco smoke exposure: No Alcohol intake: current Alcohol use details: Rarely Substance use: never Substance use type: does not use Living arrangements: with family Occupation/Education: occupation Gender identity (if verbalized by the patient): Female Sexual Orientation (if Verbalized by the Patient): Straight or Heterosexual Spiritual care concerns: No Anes - Eval Final PreProcedure Day of Procedure 10/04/23 08:39 Patient weight: morbidly obese Heart: regular rate and rhythm Lungs: clear to auscultation Airway: Mallampati scale class III Neurological: alert and oriented Last oral intake: >/= 8 hours ASA classification: III Emergent: no Anesthetic plan: proceed Anesthesia type and monitoring: general GIVS and standard monitoring Results Review: All pre-operative results and documents have been reviewed as part of the pre-operative evaluation. Informed Consent: The patient's anesthetic plan and its attendant risks and benefits were discussed with the patient/family/POA. Questions were solicited and answers provided to the satisfaction of the patient/family/POA.
[2023-10-04 09:17] VITALS: BP 99/62; PULSE 101; RESP 28; O2SAT 96
[2023-10-04 09:27] VITALS: BP 112/79; PULSE 95; RESP 19; O2SAT 100
[2023-10-04 09:37] VITALS: BP 105/82; PULSE 86; RESP 19; O2SAT 100
== END 2023-10-04 09:50 | disposition home or self-care (01) ==
PROVIDERS: PCP Family Medicine; Visit Provider Internal Medicine Gastroenterology
PROC: 0DJD8ZZ Inspection of Lower Intestinal Tract, Via Natural or Artificial Opening Endoscopic (ICD-10-PCS; CPT 45378; principal; 2023-10-04 09:00)
DX: Z12.11 Encounter for screening for malignant neoplasm of colon (principal); D12.5 Benign neoplasm of sigmoid colon; E11.9 Type 2 diabetes mellitus without complications; I10 Essential (primary) hypertension; E66.01 Morbid (severe) obesity due to excess calories; Z68.41 Body mass index [BMI] 40.0-44.9, adult; Z79.85 Long-term (current) use of injectable non-insulin antidiabetic drugs; Z79.899 Other long term (current) drug therapy
CPT/HCPCS: 45385; 82948; 88305; J2704; J7120

== ENCOUNTER 2024-01-07 04:58 | Inpatient (IN) | payer BC, OTHER, SELFPAY ==
[2024-01-07] VITALS (22 sets, daily range): BP systolic 102–149; BP diastolic 51–92; PULSE 96–125; RESP 16–34; TEMP 36.4–39.3; O2SAT 91–100
--- NOTE | ~2024-01-07 | US_ITS ---
EXAMINATION: US abdomen limited DATE: 01/07/2024 12:21 INDICATION: Elevated lipase, bili remains in liver function tests. TECHNIQUE: Multiple grayscale and Doppler ultrasound images of the abdomen were obtained. COMPARISON: CT dated 01/07/2024 FINDINGS: The visualized pancreatic body is normal in appearance. The head and tail of the pancreas are obscure d. Visualized proximal inferior vena cava is normal. Liver has normal echogenicity and contour, with a smooth surface. No liver lesion identified. No intrahepatic biliary duct dilation suspected. Portal venous flow was seen in the hepatopetal, normal direction and has normal Doppler waveform. Visualize d portion of the right kidney demonstrates normal echogenicity and contour with no hydronephrosis. Wh en correlated with prior study was indicated as the gallbladder on images with some internal hyperech oic and shadowing foci represents the gastric pylorus and proximal duodenum with small amount of intr aluminal gas. The decompressed gallbladder can be seen slightly more laterally. There is a trace amou nt of ascites along side the duodenum. The decompression of the gallbladder limits evaluation. No chi dent choledocholithiasis. The common bile duct is not identified likely due to small caliber measurin g <2 mm on the prior CT. Sonographic Miner sign was reported as negative by the prototype sewer. IMPRESSION: 1. Limited evaluation of the gallbladder due to decompressed state. No evident shadowing cholelithias is or intra or extra hepatic biliary ductal dilation. 2. Minimal amount of ascites along side the gastric pylorus and proximal duodenum likely related to a cute interstitial pancreatitis based on prior CT imaging. Reviewed, dictated and finalized at location A. BASE ADMINISTRATION MANAGER IMPRESSION: 1. Limited evaluation of the gallbladder due to decompressed state. No evident shadowing cholelithiasis or intra or extra hepatic biliary ductal dilation. 2. Minimal amount of ascites along side the gastric pylorus and proximal duoden um likely related to acute interstitial pancreatitis based on prior CT imaging.
--- NOTE | ~2024-01-07 | XR_ITS ---
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 RESULT: Lines, tubes, and devices: None. Lungs and pleura: Clear. Cardiomediastinal silhouette: Unremarkable. Other: No acute osseous or upper abdominal finding. IMPRESSION: No acute cardiopulmonary process. Reviewed, dictated and finalized at location K. SERVICE EDUCATION TEACHER
--- NOTE | ~2024-01-07 | CT_ITS ---
EXAMINATION: CT abdomen pelvis w con DATE: 01/07/2024 08:51 INDICATION: Increased lipase levels TECHNIQUE: Computed tomography (CT) of the abdomen and pelvis was performed with 100 mL Omnipaque-350 intravenous contrast. Automated exposure control and iterative reconstruction technique were employe d. The dose-length product was 1472.28 mGy-cm. COMPARISON: 04/03/2015 FINDINGS: Mild discoid atelectasis at the left lower lobe. Heart size is normal. No pericardial or pleural effu dilan. Small sliding-type hiatal hernia. There is subtle haziness to the fat surrounding the pancreas and duodenum which along with reported elevated lipase levels would be consistent with acute intersti tial pancreatitis. Pancreas appears otherwise normal with no evident necrosis or peripancreatic fluid collections. Edematous wall thickening versus small amount of pericholecystic fluid surrounding the decompressed gallbladder likely related to the acute pancreatitis. Tiny hepatic calcification consist ent with old granulomatous disease. Spleen, bilateral adrenal glands and left kidney are normal. 2 mm nonobstructing stone at the lower pole of the right kidney. Fluid throughout the colon consistent wi th nonspecific diarrhea. No bowel obstruction. Normal appendix. Bladder is normal. The uterus is not identified and has likely been surgically resected. No abscess or free intraperitoneal gas or fluid. Small amount of retroperitoneal fluid extending into the left hemipelvis likely related to the acute pancreatitis. No pathologically enlarged abdominal or pelvic lymphadenopathy. 7.4 x 4.7 x 2.8 cm lipo ma in the left anterior pelvic wall tracking along the anterior iliac spine. All 4-S1 combined instru mented anterior and posterior spinal fusion with interbody fusion devices at both levels, anterior pl ate and screw fixation at L5-S1 and right-sided vertical latosha and pedicle screws at each of these leve ls. IMPRESSION: 1. Radiographically uncomplicated acute interstitial pancreatitis. 2. 2 mm nonobstructing right renal stone. Reviewed, dictated and finalized at location A. K CABLEMAN
--- NOTE | ~2024-01-07 | MR_ITS ---
EXAMINATION: MR MRCP wo/w con/w 3D wo ind DATE: 01/08/2024 12:30 INDICATION: Acute pancreatitis and hyperbilirubinemia TECHNIQUE: Magnetic resonance imaging (MRI) of the abdomen was performed without and with 20 mL Multi michael intravenous contrast. Sequences included coronal T2-weighted SS-FSE, coronal T2-weighted FS SS- FSE, coronal T2-weighted FS FIESTA, axial T2-weighted FS FIESTA, axial T2-weighted FIESTA, sagittal T 2-weighted SS-FSE, axial T1-weighted dual-echo FSPGR, axial T2-weighted SS-FSE, axial T1-weighted LAV A, axial T2-weighted STIR FSE. Thick-slab T2-weighted FRFSE-XL images were obtained for magnetic reso nance cholangiopancreatography (MRCP). Rotating maximum intensity projection 3-D reconstructions of merged with [facility] volumetric data were created by the technologist. Postcontrast sequences included a time course of axial T1-weighted LAVA. COMPARISON: CT and ultrasound dated 01/07/2024 FINDINGS: ABDOMEN MRI: Heart size is normal. No pericardial or pleural effusion. There is mild diffuse periportal edema in merged with [facility] liver. No intrahepatic biliary ductal dilation or hepatic lesions. Asymmetric edematous wall thick ening versus small amount of pericholecystic fluid along the gallbladder fossa side of the nondistend ed gallbladder. There appear to be several tiny low signal intensity gallstones along the dependent w all of the gallbladder. Pancreas appears normal. There is a minimal amount of retroperitoneal edema a bout the head of the pancreas consistent with acute interstitial pancreatitis. Spleen, bilateral adre nal glands and kidneys are normal. /Portions of bowels are unremarkable with no dilated bowel to sugg est obstruction. There is metallic magnetic field artifact associated with instrumentation for a comb ined anterior and posterior spinal fusion at L4-S1. Marrow signal is otherwise unremarkable. Very sma ll umbilical hernia containing both fat and minimal amount of ascites. No pathologically enlarged abd ominal lymphadenopathy. ABDOMEN MRCP: Common bile duct is normal in caliber measuring 2 mm in maximal diameter. No intraluminal filling def ects to suggest choledocholithiasis. Low signal intensity gas within a small duodenal diverticulum ad jacent to the ampulla. IMPRESSION: 1. Cholelithiasis in the nondilated gallbladder with no choledocholithiasis or intra or extra hepatic biliary ductal dilation. 2. Edematous gallbladder wall thickening and/or small amount of pericholecystic fluid which along wit h mild periportal edema in the liver is likely related to the previous noted acute pancreatitis. Reviewed, dictated and finalized at location A. SWORKER IMPRESSION: 1. Cholelithiasis in the nondilated gallbladder with no choledocholithiasis or intra or extra hepatic biliary ductal dilation. 2. Edematous gallbladder wall thickening and/or small amount of pericholecystic fluid which along with mild periportal edema in the liver is likely related to the previous noted acute pancreatitis.
[2024-01-07 05:42] LABS: Basophils Absolute Auto 0.1 K/mm3 (0.0-0.1); Basophils Percent Auto 0.4 % (0.2-1.2); Hematocrit 46.4 % (37.0-47.0); Hemoglobin 14.9 g/dL (12.0-15.0); Immature Granulocyte Percent A 0.5 % (0-0.5); Lymphocytes Absolute Auto 0.52 K/mm3 (0.9-3.2); Lymphocytes Percent Auto 2.7 % (18.3-44.2); Mean Corpuscular HGB Conc 32.1 g/dl (32-36); Mean Corpuscular Hemoglobin 29.5 pg (26-34); Mean Corpuscular Volume 91.9 fl (80-100); Mean Platelet Volume 8.1 fl (7.4-10.4); Monocytes Absolute Auto 0.9 K/mm3 (0.1-0.6); Monocytes Percent Auto 4.8 % (2.6-8.5); Neutrophils Absolute Auto 17.7 K/mm3 (1.3-6.7); Neutrophils Percent Auto 91.6 % (45.5-73.1); Platelet Count Result 332 k/mm3 (150-375); Red Blood Count 5.05 M/mm3 (4.2-5.4); White Blood Count 19.3 K/mm3 (4.5-10.0)
[2024-01-07 05:51] LABS: Alanine Aminotransferase 582 U/L (6-35); Albumin Level 4.4 g/dL (3.5-5.1); Alkaline Phosphatase 125 U/L (38-126); Anion Gap 10 mmol/L (8-16); Bilirubin,Total 2.4 mg/dL (0.2-1.3); Blood Urea Nitrogen 17 mg/dL (7-17); Calcium 10.2 mg/dL (8.4-10.2); Carbon Dioxide 27 mmol/L (22-30); Chloride 106 mmol/L (98-107); Estimated CRCL calculation 92 ml/min; Estimated Glomerular Filt Rate > 60; Glucose 172 mg/dL (65-110); Potassium 3.2 mmol/L (3.4-5.0); Sodium 143 mmol/L (137-145)
[2024-01-07 06:13] LABS: Influenza A QL RT-PCR Negative (Negative); Influenza B QL RT-PCR Negative (Negative); RSV RNA, RT-PCR Negative (Negative); SARS-CoV-2 RNA PCR Positive (Negative)
[2024-01-07 06:37] LABS: Aspartate Amino Transferase 952 U/L (14-36); Lipase > 20000 U/L (23-300)
[2024-01-07] MEDS: SODIUM CHLORIDE 0.9% IV 1,000 ML 999 ML IV CONT ×3 (07:57→12:36)
[2024-01-07 08:20] LABS: Add Urine Microscopic? YES; Appearance Urine Turbid (Clear); Bacteria Urine Rare /hpf; Bilirubin Urine 2+ (Negative); Blood Urine 1+ (Negative); Color Urine Dark Yellow (Yellow); Glucose Urine UA Trace mg/dL (Negative); Granular Casts Urine Present /lpf; Ketones Urine Negative (Negative); Leukocyte Esterase Ur 1+ LEU/UL (Negative); Nitrate Urine Negative (Negative); Non Pathogenic Casts >20; Protein Urine 2+ mg/dL (Negative); Specific Grav Ur 1.016 (1.001-1.035); Squamous Epithelial Cell Urine Many /hpf (Few); pH Urine 5.5 (5.0-9.0)
[2024-01-07 08:21] LABS: Hyaline Casts Urine Present /lpf
--- NOTE | 2024-01-07 09:27 | ED.NAVMDI ---
HPI - Nausea/Vomiting/Diarrhea General Chief complaint: Nausea/Vomiting/Diarrhea <AIDEN Tam Last Filed: 01/07/24 18:17> Stated complaint: unsure if flu, N/V/D, abdominal pain, fever <AIDEN Tam Last Filed: 01/07/24 18:17> Time Seen by Provider: 01/07/24 08:57 <AIDEN Tam Last Filed: 01/07/24 18:17> Source: patient <AIDEN Tam Last Filed: 01/07/24 18:17> Mode of arrival: ambulatory <AIDEN Tam Last Filed: 01/07/24 18:17> Limitations: no limitations <AIDEN Tam Last Filed: 01/07/24 18:17> History of Present Illness HPI Narrative: Patient is a 53 y/o female, with PMH of DM on Ozempic, who presents to the ED with c/o N/V/D. Patient reports she began feeling unwell last night and developed nausea, vomiting, diarrhea. Reporting multiple episodes of each. Denies rectal bleeding or melena. She also reported having discomfort in her epigastric region, radiating down her anterior abdomen throughout the night, in addition to fevers up to 102F. 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 She thought she may have the flu. Denies cough, cold sx's, CP, SOB, rectal bleeding, melena, urinary complaints. <AIDEN Tam Last Filed: 01/07/24 18:17> Related Data Home medications: Home Medications Medication Instructions Recorded Confirmed multivitamin 1 tablet PO DAILY 12/03/21 01/07/24 <AIDEN Tam Last Filed: 01/07/24 18:17> Allergies/Adverse reactions: Allergies Allergy/AdvReac Type Severity Reaction Status Date / Time No Known Allergies Allergy Unknown Verified 11/28/23 11:04 <AIDEN Tam Last Filed: 01/07/24 18:17> Review of Systems Review of Systems: CONSTITUTIONAL: See HPI. ENT: Denies rhinorrhea, congestion, sore throat. CARDIOVASCULAR: Denies chest pain. RESPIRATORY: Denies cough or dyspnea. GASTROINTESTINAL: See HPI. GENITOURINARY: Denies dysuria or hematuria. <Alejandra Cruz PA-C - Last Filed: 01/07/24 18:17> All systems reviewed & are unremarkable except as noted in HPI and below <Alejandra Cruz PA-C - Last Filed: 01/07/24 18:17> [facility] Past Medical History Medical History: Medical History Controlled diabetes mellitus type II without complication Degenerative joint disease of left hip Diabetes mellitus out of control Essential (primary) hypertension Fibroid Hypertension Left hip pain Lumbar disc disease Morbid obesity with BMI of 40.0-44.9, adult Obesity Pure hyperglyceridemia <Alejandra Cruz PA-C - Last Filed: 01/07/24 18:17> Surgical History Surgical History: Surgical History History of lithotripsy History of lumbar fusion s/p L4-S1 fusion/fixation History of partial hysterectomy <Alejandra Cruz PA-C - Last Filed: 01/07/24 18:17> Family History Family History: Family History Unknown Hypertension Mom Cardiovascular disease Mom Diabetes mellitus grandparents, aunts HLD (hyperlipidemia) MOM Father Chronic leukemia <Alejandra Cruz PA-C - Last Filed: 01/07/24 18:17> Social History Social History: Social History Social History: Smoking status: Never smoker Second hand tobacco smoke exposure: No Alcohol intake: current Alcohol use details: Rarely Substance use: never Substance use type: does not use Do You Feel Safe in your Home?: Yes Lack of Transportation: No Lack of Food: Never True Current Housing: I Have Housing Concerned About Future Housing: No Difficulty Paying Gas/Electric
[2024-01-07] MEDS: ONDANSETRON INJ 4 MG/2 ML VIAL IV PUSH ×2 (10:06→14:40)
[2024-01-07] MEDS: FAMOTIDINE 20 MG/2 ML VIAL IV PUSH (10:06)
[2024-01-07] MEDS: KCL 20 MEQ/SW 100 ML 100 ML 50 MEQ IVPB (10:14)
[2024-01-07 11:06] LABS: Magnesium 1.8 mg/dL (1.6-2.3)
[2024-01-07 12:00] LABS: Lactic Acid Reflex 3.6 mmol/L (0.7-2.0)
[2024-01-07] MEDS: HYDROmorphone HCL INJ (*CRX) 1 MG/ML SYR 0.5 MG IV PUSH (14:40)
[2024-01-07 14:48] LABS: Reflex Lactic Acid Yes or No Add Lactic
[2024-01-07] MEDS: ACETAMINOPHEN 500 MG TABLET 1000 MG PO (15:07)
[2024-01-07] MEDS: PIPERACILLN/TAZ 3.375GM/NS50ML 3.375 GM/50 ML BAG IVPB (15:08)
[2024-01-07 16:36] LABS: Lactic Acid 2.5 mmol/L (0.7-2.0)
[2024-01-07] MEDS: KETOROLAC 30 MG/ML VIAL (*BKC) IV PUSH ×2 (16:47→22:01)
--- NOTE | 2024-01-07 16:59 | PC.NURSE ---
Pts oral temp 102.7 after tylenol given over an hour prior. Pt is hot to touch and flushed. Cold wash cloths applied to forehead and neck. Ally Lee, hospitalist notified.
--- NOTE | 2024-01-07 17:10 | ADMGEN ---
This patient, Aristeo Bashir, was admitted to Medical Room [facility]- at 1700. Patient/family oriented to hospital policies and general routines including ID bracelet, bed and alarms, visiting hours, pain management, procedures, bathroom and other care routines, personal items, smoking policy, room service/diet, and visiting hours. Information on how to activate the Rapid Response Team has been discussed. Patient/Family are encouraged to report perceived risks to care and to ask questions if they do not understand what they are told or what they should do.
[2024-01-07] MEDS: SODIUM CHLORIDE 0.9% IV 1,000 ML 125 ML IV CONT (17:17)
[2024-01-07] MEDS: LACTATED RINGERS 1,000 ML 100 ML IV CONT (17:50)
--- NOTE | 2024-01-07 18:24 | PM.IMHP ---
H&P: HPI History of Present Illness Date/Time: 01/07/24 18:24 Chief Complaint: Abdominal Pain, N/V/D, Fever Narrative: 53 y/o F presents here with abdominal pain, N/V/D, fever, and dehydration with PMH of DM2 and HTN. Patient presents here with upper abdominal pain. Patient began experiencing N/V/D last night (01/06) and fever with highest recorded at home at 102F. Abdominal discomfort is epigastric with radiation into patient's lower abdomen. +body aches and chills. 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 Currently on Ozempic, exchanged to this due to insurance and has been taking it for 6 months. Alcohol use - 4 times per year. Denies chest pain, SOB, dark/tarry stools, BRBPR, and changes in stool color. No dizziness, syncope, or palpitations. No dysuria, hematuria, or urinary frequency. Did also report recently eating at a pot luck where food was questionable and was also concerned for food poisoning. Initial VS at presentation: 97.6? F, HR 123, RR 16, 102/51, 98% on RA. Later in ED course spiked fever with max T at 102.7? F ED workup showed leukocytosis with a WBC of 19.3, HGB 14.9, potassium 3.2, glucose 172, lactic acid 3.6, total bilirubin 2.4, AST 952, ALT 582, alk-phos 125, lipase >20,000, and UA equivocal. CT of the abd/pelvis showed radiographically uncomplicated acute interstitial pancreatitis and a 2 mm nonobstructing right renal stone. US of abdomen showed decompressed gallbladder, no evident cholelithiasis or ductal dilation and minimal amount of ascites alongside gastric pylorus and proximal duodenum likely related to acute interstitial pancreatitis. Review of Systems Review of Systems: All systems reviewed & are unremarkable except as noted in HPI and below PMFSH Past Medical History Medical History Controlled diabetes mellitus type II without complication Degenerative joint disease of left hip Diabetes mellitus out of control Essential (primary) hypertension Fibroid Hypertension Left hip pain Lumbar disc disease Morbid obesity with BMI of 40.0-44.9, adult Obesity Pure hyperglyceridemia Surgical History Surgical History History of lithotripsy History of lumbar fusion s/p L4-S1 fusion/fixation History of partial hysterectomy Family History Family History Unknown Hypertension Mom Cardiovascular disease Mom Diabetes mellitus grandparents, aunts HLD (hyperlipidemia) MOM Father Chronic leukemia Social History Social History Social History: Smoking status: Never smoker Second hand tobacco smoke exposure: No Alcohol intake: current Alcohol use details: Rarely Substance use: never Substance use type: does not use Do You Feel Safe in your Home?: Yes Lack of Transportation: No Lack of Food: Never True Current Housing: I Have Housing Concerned About Future Housing: No Difficulty Paying Gas/Electric Bills: No Difficulty Paying for Meds: No Currently Unemployed: No Education: Bachelor's Degree Difficulty w/ Childcare or Family Care: No Living arrangements: with family Occupation/Education: occupation Gender identity (if verbalized by the patient): Female Sexual Orientation (if Verbalized by the Patient): Straight or Heterosexual Spiritual care concerns: No Meds Home Medications and Allergies Home Medications Medication Instructions Recorded Confirmed Type multivitamin 1 tablet PO DAILY 12/03/21 01/07/24 History blood sugar diagnostic (OneTouch #100 ea 09/07/23 11/28/23 Rx Verio test strips) lisinopril 30 mg tablet 30 mg PO DAILY #90 tabs 10/06/23 01/07/24 Rx hydrochlorothiazide 25 mg tablet 25 mg PO DAILY #90 tabs 10/31/23 01/07/24 Rx lancets 33 gauge ([employer]ou[employer]
[2024-01-07] MEDS: MEROPENEM 1 GM/NS 100 ML 1 GM/100 ML BAG IVPB (22:01)
[2024-01-08] VITALS: PULSE 108
[2024-01-08] MEDS: MEROPENEM 1 GM/NS 100 ML 1 GM/100 ML BAG IVPB ×3 (03:56→18:37)
[2024-01-08 04:00] VITALS: PULSE 90
[2024-01-08 05:40] LABS: Basophils Percent Auto 0.5 % (0.2-1.2); Eosinophils Percent Auto 0.4 % (0-4.4); Hematocrit 37.4 % (37.0-47.0); Immature Granulocyte Absolute 0.06 K/mm3 (0.00-0.031); Immature Granulocyte Percent A 0.7 % (0-0.5); Lymphocytes Absolute Auto 0.42 K/mm3 (0.9-3.2); Lymphocytes Percent Auto 5.1 % (18.3-44.2); Mean Corpuscular HGB Conc 32.1 g/dl (32-36); Mean Corpuscular Hemoglobin 30.1 pg (26-34); Mean Corpuscular Volume 93.7 fl (80-100); Mean Platelet Volume 8.5 fl (7.4-10.4); Monocytes Absolute Auto 0.2 K/mm3 (0.1-0.6); Monocytes Percent Auto 2.7 % (2.6-8.5); Neutrophils Absolute Auto 7.5 K/mm3 (1.3-6.7); Neutrophils Percent Auto 90.6 % (45.5-73.1); Platelet Count Result 209 k/mm3 (150-375); Red Blood Count 3.99 M/mm3 (4.2-5.4); Red Cell Distribution Width 13.5 % (11.5-14.5); White Blood Count 8.3 K/mm3 (4.5-10.0)
[2024-01-08 05:45] LABS: Hemoglobin A1C 5.6 % (<5.7)
[2024-01-08 05:54] LABS: Alanine Aminotransferase 379 U/L (6-35); Albumin Level 3.4 g/dL (3.5-5.1); Alkaline Phosphatase 106 U/L (38-126); Anion Gap 6 mmol/L (8-16); Aspartate Amino Transferase 254 U/L (14-36); Bilirubin,Total 3.8 mg/dL (0.2-1.3); Blood Urea Nitrogen 14 mg/dL (7-17); Calcium 8.6 mg/dL (8.4-10.2); Carbon Dioxide 28 mmol/L (22-30); Chloride 108 mmol/L (98-107); Cholesterol 129 mg/dL (0-200); Estimated CRCL calculation 120 ml/min; Estimated Glomerular Filt Rate > 60; Glucose 97 mg/dL (65-110); HDL Direct 35 mg/dL; Lipase 549 U/L (23-300); Magnesium 1.9 mg/dL (1.6-2.3); Potassium 3.3 mmol/L (3.4-5.0); Sodium 142 mmol/L (137-145); Triglycerides 126 mg/dL (<150)
[2024-01-08 05:55] LABS: Lactic Acid Reflex 1.4 mmol/L (0.7-2.0)
[2024-01-08 06:00] VITALS: BP 122/70; PULSE 95; RESP 18; TEMP 37.3; O2SAT 97
[2024-01-08 06:05] LABS: LDL Cholesterol Direct 64 mg/dL
--- NOTE | 2024-01-08 06:58 | PM.IMPN ---
Progress Note: A&P Assessment and Plan (1) Septic shock: Code(s): A41.9 - Sepsis, unspecified organism; R65.21 - Severe sepsis with septic shock Status: Acute Assessment and Plan: 01/07/24: - meets SIRS criteria: HR, fever, WBC, and RR. - lactic acid: 3.6 -> 2.5 - 30 mL/kg = 3480, given 3L bolus and now on 100 mL/hr of LR - blood cultures pending - suspect pancreatitis/COVID as source - continue IV hydration and monitor lactic - UA equivocal, hold on treatment. urine culture pending. - meropenem 1G Q8H - fever not initially responsive to 1G of TYL, adding Ketorlac 30 IVP - spoke with community living specialist, Alicia RICKETTS. okay to move to intensive care unit, however post-Toradol patient's heart rate and fever drastically improved. Patient overall stating she feels generally improved. Will continue to monitor. - Toradol PRN 01/08/24: T-max 99.1 today Lactic acid 1.4 Continue IVF Blood and urine cultures pending Continue Meropenem and Remdesivir (2) Acute pancreatitis: Qualifiers: Acute pancreatitis complication: unspecified Pancreatitis type: unspecified pancreatitis type Qualified Code(s): K85.90 - Acute pancreatitis without necrosis or infection, unspecified Code(s): K85.90 - Acute pancreatitis without necrosis or infection, unspecified Status: Acute Assessment and Plan: 01/07/24: - lipase: >20,000 - AST: 952 - ALT: 582 - total bili: 2.4 - alk phos 125 - CT abd/pelvis: Radiographically uncomplicated acute interstitial pancreatitis without evidence of necrosis or peripancreatic fluid collections. Edematous wall thickening versus small amount of monica cholecystic fluid surrounding the decompressed gallbladder likely related to the acute pancreatitis. Small amount of retroperitoneal fluid extending into left hemipelvis likely related to acute pancreatitis. 2 mm nonobstructing right renal stone. - US abdomen: 1. Limited eval of the gallbladder due to decompressed state. No evident shadowing cholelithiasis or intra or extra hepatic biliary ductal dilation. 2. Minimal amount of ascites along side the gastric pylorus and proximal duodenum likely r/t acute interstitial pancreatitis based on prior CT imaging. - NPO - continue IV hydration - pain medication PRN - ED spoke with Dr. German, GI @ [facility] -advise no indication for ERCP at this time. Reassuring the patient's total bilirubin is less than 3. Recommended admission, fluids, IV antibiotics, obtaining MRCP. No current indication for transfer at this time. If lab findings or patient condition changes, he is happy to accept patient is a transfer. - continue to trend labs, add A1C and lipid panel - initially started on Zosyn, per community living specialist rec - start meropenem - diarrhea has resolved, if recurrent - consider stool culture. - MRCP 01/08/24: Lipase 549 AST 254, ALT 379, total bili 3.8, alk phos 106 Lipid panel normal Hgb A1C 5.6 Continue NPO status Plan for MRCP today. (3) COVID-19: Code(s): U07.1 - COVID-19 Status: Acute Assessment and Plan: 01/07/24: - onset: 01/06/23 - tested positive on: 01/07/23 - complicating comorbidities: acute pancreatitis and sepsis - remdesivir held, patient not currently a candidate due to LFTs - continue supportive measures: Tessalon Perles p.r.n. IV hydration Zofran p.r.n. Tylenol p.r.n. for fever or discomfort Lozenge p.r.n. - add CXR - fever of 102 despite TYL admin, given Toradol 30 IVP. temp now 98.3F - SCDs - no current hypoxia or resp distress 01/08/24: Continue Remdesivir (4) Controlled diabetes mellitus type II without complication: Code(s): E11.9 - Type 2 diabetes mellitus without complications Status: Acute Assessment and Plan: 01/07/24: - hypoglycemia protocol - POC blood glucose ACHS - home medication held - ozempic - correct regimen ordered - low dose TIDWM and HS - A1C ordered 01/08/24: Bg
[2024-01-08] MEDS: PANTOPRAZOLE SODIUM IV 40 MG VIAL IV PUSH (08:03)
[2024-01-08] MEDS: KETOROLAC 30 MG/ML VIAL (*BKC) IV PUSH (08:04)
[2024-01-08 08:23] LABS: Glucose Point of Care 111 mg/dl (65-105)
[2024-01-08 09:14] VITALS: PULSE 90
[2024-01-08 14:35] VITALS: BP 129/71; PULSE 92; RESP 18; TEMP 37.1; O2SAT 96
[2024-01-08 17:04] LABS: Glucose Point of Care 95 mg/dl (65-105)
[2024-01-08 19:54] VITALS: BP 142/78; PULSE 87; RESP 18; TEMP 37.1; O2SAT 94
[2024-01-08 22:11] LABS: Glucose Point of Care 109 mg/dl (65-105)
[2024-01-09] MEDS: KETOROLAC 30 MG/ML VIAL (*BKC) IV PUSH (04:18)
[2024-01-09] MEDS: MEROPENEM 1 GM/NS 100 ML 1 GM/100 ML BAG IVPB ×2 (04:19→10:14)
[2024-01-09 05:31] LABS: Basophils Percent Auto 0.3 % (0.2-1.2); Eosinophils Absolute Auto 0.1 K/mm3 (0-0.3); Eosinophils Percent Auto 1.7 % (0-4.4); Hematocrit 32.3 % (37.0-47.0); Hemoglobin 10.5 g/dL (12.0-15.0); Immature Granulocyte Absolute 0.04 K/mm3 (0.00-0.031); Immature Granulocyte Percent A 0.7 % (0-0.5); Lymphocytes Absolute Auto 0.95 K/mm3 (0.9-3.2); Lymphocytes Percent Auto 15.7 % (18.3-44.2); Mean Corpuscular HGB Conc 32.5 g/dl (32-36); Mean Corpuscular Hemoglobin 29.8 pg (26-34); Mean Corpuscular Volume 91.8 fl (80-100); Mean Platelet Volume 8.6 fl (7.4-10.4); Monocytes Absolute Auto 0.3 K/mm3 (0.1-0.6); Monocytes Percent Auto 4.6 % (2.6-8.5); Neutrophils Absolute Auto 4.7 K/mm3 (1.3-6.7); Platelet Count Result 188 k/mm3 (150-375); Red Blood Count 3.52 M/mm3 (4.2-5.4); Red Cell Distribution Width 13.4 % (11.5-14.5); White Blood Count 6.1 K/mm3 (4.5-10.0)
[2024-01-09 05:48] LABS: Alanine Aminotransferase 260 U/L (6-35); Albumin Level 3.2 g/dL (3.5-5.1); Alkaline Phosphatase 174 U/L (38-126); Anion Gap 0 mmol/L (8-16); Aspartate Amino Transferase 104 U/L (14-36); Bilirubin,Total 2.7 mg/dL (0.2-1.3); Blood Urea Nitrogen 11 mg/dL (7-17); Calcium 8.6 mg/dL (8.4-10.2); Carbon Dioxide 28 mmol/L (22-30); Chloride 106 mmol/L (98-107); Estimated CRCL calculation 141 ml/min; Estimated Glomerular Filt Rate > 60; Glucose 121 mg/dL (65-110); Potassium 3.1 mmol/L (3.4-5.0); Sodium 134 mmol/L (137-145)
[2024-01-09 06:00] VITALS: BP 154/66; PULSE 75; RESP 18; TEMP 36.8; O2SAT 95
--- NOTE | 2024-01-09 07:09 | PM.IMPN ---
Progress Note: A&P Assessment and Plan (1) Septic shock: Code(s): A41.9 - Sepsis, unspecified organism; R65.21 - Severe sepsis with septic shock Status: Acute Assessment and Plan: 01/07/24: - meets SIRS criteria: HR, fever, WBC, and RR. - lactic acid: 3.6 -> 2.5 - 30 mL/kg = 3480, given 3L bolus and now on 100 mL/hr of LR - blood cultures pending - suspect pancreatitis/COVID as source - continue IV hydration and monitor lactic - UA equivocal, hold on treatment. urine culture pending. - meropenem 1G Q8H - fever not initially responsive to 1G of TYL, adding Ketorlac 30 IVP - spoke with anodic operator, Alicia RICKETTS. okay to move to intensive care unit, however post-Toradol patient's heart rate and fever drastically improved. Patient overall stating she feels generally improved. Will continue to monitor. - Toradol PRN 01/08/24: T-max 99.1 today Lactic acid 1.4 Continue IVF Blood and urine cultures pending Continue Meropenem and Remdesivir 01/09/24: Blood cultures showing no growth Urine culture showing gram negative bacilli isolated Continue Meropenem Remdesivir discontinued due to elevated liver enzymes (2) Acute pancreatitis: Qualifiers: Acute pancreatitis complication: unspecified Pancreatitis type: unspecified pancreatitis type Qualified Code(s): K85.90 - Acute pancreatitis without necrosis or infection, unspecified Code(s): K85.90 - Acute pancreatitis without necrosis or infection, unspecified Status: Acute Assessment and Plan: 01/07/24: - lipase: >20,000 - AST: 952 - ALT: 582 - total bili: 2.4 - alk phos 125 - CT abd/pelvis: Radiographically uncomplicated acute interstitial pancreatitis without evidence of necrosis or peripancreatic fluid collections. Edematous wall thickening versus small amount of monica cholecystic fluid surrounding the decompressed gallbladder likely related to the acute pancreatitis. Small amount of retroperitoneal fluid extending into left hemipelvis likely related to acute pancreatitis. 2 mm nonobstructing right renal stone. - US abdomen: 1. Limited eval of the gallbladder due to decompressed state. No evident shadowing cholelithiasis or intra or extra hepatic biliary ductal dilation. 2. Minimal amount of ascites along side the gastric pylorus and proximal duodenum likely r/t acute interstitial pancreatitis based on prior CT imaging. - NPO - continue IV hydration - pain medication PRN - ED spoke with Dr. German, GI @ [facility] -advise no indication for ERCP at this time. Reassuring the patient's total bilirubin is less than 3. Recommended admission, fluids, IV antibiotics, obtaining MRCP. No current indication for transfer at this time. If lab findings or patient condition changes, he is happy to accept patient is a transfer. - continue to trend labs, add A1C and lipid panel - initially started on Zosyn, per anodic operator rec - start meropenem - diarrhea has resolved, if recurrent - consider stool culture. - MRCP 01/08/24: Lipase 549 AST 254, ALT 379, total bili 3.8, alk phos 106 Lipid panel normal Hgb A1C 5.6 Continue NPO status Plan for MRCP today. 01/09/24: AST 104, ALT 260, alk-phos 174, total bili down to 2.7 today MRCP showed cholelithiasis in the nondilated gallbladder to with no choledocholithiasis or intra or extrahepatic biliary ductal dilation, edematous gallbladder wall thickening and/or small amount of monica cholecystic fluid which along with mild periportal edema in the liver is likely related to the previous noted acute pancreatitis IV fluids stopped Patient started on clear liquid diet yesterday evening (3) COVID-19: Code(s): U07.1 - COVID-19 Status: Acute Assessment and Plan: 01/07/24: - onset: 01/06/23 - tested positive on: 01/07/23 - complicating comorbidities: acute pancreatitis and sepsis - remdesivir held, patient not currently a candidate due to LFTs - continue ramirez
[2024-01-09 08:10] LABS: Glucose Point of Care 111 mg/dl (65-105)
[2024-01-09] MEDS: POTASSIUM CHLORIDE 20 MEQ ER TABLET 40 MEQ PO (08:10)
[2024-01-09] MEDS: hydroCHLOROthiazide 25 MG TABLET PO (08:10)
[2024-01-09] MEDS: lisinopriL 10 MG TABLET 30 MG PO (08:10)
[2024-01-09] MEDS: PANTOPRAZOLE SODIUM IV 40 MG VIAL IV PUSH (08:11)
--- NOTE | 2024-01-09 11:44 | PM.DS ---
DS: Admitting Diagnosis Discharge Date 01/09/24 Admitting Diagnosis Septic shock Acute pancreatitis COVID Controlled diabetes mellitus type 2 without complication Essential hypertension DS: Discharge Diagnosis Discharge Diagnosis (1) Septic shock: Code(s): A41.9 - Sepsis, unspecified organism; R65.21 - Severe sepsis with septic shock Status: Acute (2) Acute pancreatitis: Qualifiers: Acute pancreatitis complication: unspecified Pancreatitis type: unspecified pancreatitis type Qualified Code(s): K85.90 - Acute pancreatitis without necrosis or infection, unspecified Code(s): K85.90 - Acute pancreatitis without necrosis or infection, unspecified Status: Acute (3) COVID-19: Code(s): U07.1 - COVID-19 Status: Acute (4) Controlled diabetes mellitus type II without complication: Code(s): E11.9 - Type 2 diabetes mellitus without complications Status: Acute (5) Essential (primary) hypertension: Code(s): I10 - Essential (primary) hypertension Status: Acute (6) Urinary tract infection: Code(s): N39.0 - Urinary tract infection, site not specified Status: Acute DS: Summary Hospital Course Reason for hospitalization: Septic shock Acute pancreatitis COVID Urinary tract infection Hospital Course: This is a 53 year old female who presented to the hospital on 01/07/24 with complaints of abdominal pain, nausea, vomiting, diarrhea, and fever with a T-max 102.7. Work up in the hospital included a CT of the abdomen and pelvis with contrast which revealed uncomplicated acute interstitial pancreatitis, 2mm nonobstructing right renal stone. US of abdomen revealed normal appearing gallbladder, no evidence of cholelithiasis or ductal dilation, minimal mount of ascites along side the gastric pylorus and proximal duodenum likely related to acute pancreatitis. CXR was negative. Initial labs revealed WBC 19.3, K+ 3.2, Magnesium 1.8, Lactic acid 3.6>2.5>1.4, total bilirubin 2.4, AST 952, ALT 582, Lipase >20,000. UA 2+ protein, trace glucose, 1+ blood, 2+ bilirubin, 1+ leukocytes, 6-10 urine RBCs, 6-10 urine WBC's, many urine squamous cells. Respiratory panel positive for COVID. Blood and urine cultures obtained. Patient was given 3L NS, pepcid, morphine, potassium, dilaudid and toradol, zofran, Remdesivir, and given Zosyn while in the ER. She was then placed on LR and Meropenem. Lipase level down to 549. MRCP only shown signs of acute pancreatitis there was no issues with the gallbladder or obstructing stones. She states that she is feeling much better today and denies any new complaints. Labs today were significant for total bili of 2.7 which is down from yesterday, AST 104, ALT 260, alk-phos 174, total protein 6.0, albumin 3.2, hemoglobin 10.5, hematocrit 32.3. Urine culture is showing Klebsiella oxytoca. Meropenem switched to cefdinir oral. Patient will need to finish another 5 days of this medication and then follow up with her primary care physician within 1 week. Her acute pancreatitis is likely due to her use of Ozempic and I did discuss stopping this medication and following up with her primary care regarding different diabetic medications that do not have this side effect. Final diagnosis: septic shock related to acute pancreatitis and acute urinary tract infection Status at Discharge Cognitive/behavioral status at discharge: Alert oriented x4 Functional status at discharge: independent ambulation Overall status at discharge: patient is back to baseline Time Spent with Patient Time attestation: Total time spent providing and/or coordinating discharge services: Time spent: Greater than 30 minutes Exam Narrative: General: In no acute distress, well nourished Head: atraumatic, no encephalopathy Eyes: EOMI, PERRLA, slcera clear ENT: moist mucous membranes, nasal passages clear Neck: supple, no JVD, no adenopathy, trachea midline Cardiac: Normal S1 and S2. No m
[2024-01-09 11:48] LABS: Glucose Point of Care 118 mg/dl (65-105)
== END 2024-01-09 12:35 | disposition home or self-care (01) | DRG 871 ==
LOC: ANHED 17:02 → ANH2MED 17:08
PROVIDERS: Emergency Medicine; Student in an Organized Health Care Education/Training Program; Admitting Provider Internal Medicine; Emergency Provider Physician Assistant; PCP Family Medicine; Visit Provider Nurse Practitioner Acute Care
DX: A41.9 Sepsis, unspecified organism (principal); K85.80 Other acute pancreatitis without necrosis or infection; R65.21 Severe sepsis with septic shock; U07.1 COVID-19; K85.90 Acute pancreatitis without necrosis or infection, unspecified; N39.0 Urinary tract infection, site not specified; Z68.41 Body mass index [BMI] 40.0-44.9, adult; B96.89 Other specified bacterial agents as the cause of diseases classified elsewhere; E11.9 Type 2 diabetes mellitus without complications; I10 Essential (primary) hypertension; E66.01 Morbid (severe) obesity due to excess calories; E86.0 Dehydration; M16.12 Unilateral primary osteoarthritis, left hip; M51.36 Other intervertebral disc degeneration, lumbar region; Z98.1 Arthrodesis status
CPT/HCPCS: 36415; 71046; 74177; 74183; 76376; 76705; 80053; 80061; 81001; 82948; 83036; 83605; 83690; 83735; 85025; 87040; 87086; 87186; 87637; 96361; 96365; 96366; 96367; 96375; 96376; 99285; A9270; A9577; C9113; G0378; J1170; J1885; J2185; J2405; J2543; J3480; J7030; J7120; Q9967

== ENCOUNTER 2024-02-04 08:45 | Outpatient (CLI) | payer BC, SELFPAY ==
--- NOTE | ~2024-02-04 | XR_ITS ---
EXAMINATION: XR abdomen/kub 1V DATE: 02/04/2024 09:19 INDICATION: Kidney stones TECHNIQUE: A supine view of the abdomen on 3 radiographs was obtained. COMPARISON: CT dated 01/07/2024 FINDINGS: No evident urolithiasis. The 2 mm right renal stone seen at the lower pole of the right kidney on miguel or CT is unable be distinguished on the plain radiographs. No stones seen along the course of the ure ters. A couple unchanged phleboliths in the left hemipelvis. No dilated loops of bowel to suggest obs truction. Combined instrumented L4-S1 anterior spinal fusion with interbody bone graft cages at both L4-L5 and L5-S1, anterior plate and screw fixation at L5-S1 and right-sided vertical latosha and pedicle screws at L4-S1. Lung bases are clear. Heart size is normal. Severe left hip osteoarthritis. IMPRESSION: 1. No evident urolithiasis. The 2 mm stone previously seen at the lower pole of the right kidney is u nable to be visualized on the plain radiographs. Reviewed, dictated and finalized at location A. IMPRESSION: 1. No evident urolithiasis. The 2 mm stone previously seen at the lower pole of the right kidney is unable to be visualized on the plain radiographs.
--- NOTE | ~2024-02-04 | US_ITS ---
EXAMINATION: US renal BI DATE: 02/04/2024 09:04 INDICATION: Renal stones TECHNIQUE: Multiple ultrasound grayscale images of the kidneys were obtained. COMPARISON: CT dated 01/07/2024 FINDINGS: The right kidney measures 11.5 x 5.5 x 5.0 cm. The left kidney measures 12.3 x 6.8 x 6.0 cm. The kidn eys demonstrate normal echogenicity. There is no hydronephrosis in either kidney. No stones identifi ed. The bladder is normal. IMPRESSION: 1. Normal kidneys without hydronephrosis. Reviewed, dictated and finalized at location A.
== END 2024-02-04 08:46 ==
PROVIDERS: PCP Family Medicine; Visit Provider Urology
DX: N20.1 Calculus of ureter (principal)
CPT/HCPCS: 74018; 76775

== ENCOUNTER 2024-05-29 15:06 | Outpatient (CLI) | payer BC, SELFPAY ==
--- NOTE | ~2024-05-29 | MM_ITS ---
EXAMINATION: MM screening mely BI w madeleine HISTORY: Screening TECHNIQUE: Craniocaudal and mediolateral oblique 3-D tomosynthesis images were obtained and synthetic 2-D images were generated. CAD analysis was submitted and interpreted. COMPARISON: Comparison to multiple prior studies sequentially, with oldest reviewed study dated 02/17. BREAST PARENCHYMAL COMPOSITION: Not dense: There are scattered areas of fibroglandular density. FINDINGS: There is no evidence of suspicious mass, calcification, or architectural distortion to sugg est malignancy in either breast. There has been no suspicious interval change. IMPRESSION: 1. No mammographic evidence of malignancy. 2. Recommend routine screening mammography in one year. BI-RADS Category 1: Negative Reviewed, dictated and finalized at location B.
== END 2024-05-29 15:07 ==
LOC: MICIMG 15:06
PROVIDERS: PCP Family Medicine; Visit Provider Nurse Practitioner Obstetrics & Gynecology
DX: Z12.31 Encounter for screening mammogram for malignant neoplasm of breast (principal)
CPT/HCPCS: 77063; 77067

== ENCOUNTER 2024-07-14 10:10 | Emergency (ER) | payer BC, SELFPAY ==
[2024-07-14] VITALS (28 sets, daily range): BP systolic 146–167; BP diastolic 84–117; PULSE 82–104; RESP 11–20; TEMP 36.3–37.2; O2SAT 84–100
--- NOTE | ~2024-07-14 | CT_ITS ---
EXAMINATION: CT abdomen pelvis w con DATE: 07/14/2024 13:18 INDICATION: Left upper quadrant and epigastric abdominal pain. Vomiting. TECHNIQUE: Computed tomography (CT) of the abdomen and pelvis was performed with 100 mL Omnipaque 350 intravenous contrast. Automated exposure control and iterative reconstruction technique were employe d. The dose-length product was 1502.32 mGy-cm. COMPARISON: CT abdomen and pelvis 01/07/24 FINDINGS: The visualized portions of the lung bases demonstrate mild atelectasis. No pleural effusion . The heart is normal. No pericardial effusion. There is wall thickening of the distal esophagus, con sistent with esophagitis. The spleen, liver, gallbladder, pancreas, adrenal glands, and left kidney a re normal. There is a 4 mm stone in right kidney. There are no dilated loops of bowel. The appendix i s normal. There are no pathologically enlarged lymph nodes. There is a lipoma in the left lateral abd ominal wall and left retroperitoneum. There are changes of anterior and posterior fusion procedures f rom L4 to S1. There is moderate lumbar stenosis. IMPRESSION: 1. Wall thickening of the distal esophagus, consistent with esophagitis. Reviewed, dictated and finalized at location A.
--- NOTE | 2024-07-14 11:02 | ECG_ITS ---
Test Date: 2024-07-14 11:07:47 Measurements Intervals [place] Rate: 96 P: 47 NE: 162 QRS: 13 QRSD: 104 T: 24 QT: 328 QTc: 416 Interpretive Statements SINUS RHYTHM No previous ECG available for comparison Electronically Signed On 07-15-2024 10:29:37 CDT by Elvis Dougherty M.D.
--- NOTE | 2024-07-14 12:15 | ED.ABDPAIN ---
HPI - Abdominal Pain General Chief Complaint: Abdominal Pain Stated Complaint: abd pain Time Seen by Provider: 07/14/24 11:52 History of Present Illness HPI narrative: Patient is a 53-year-old female presenting with abdominal pain and vomiting. States that she woke this morning with severe epigastric pain. States that she took Pepto-Bismol, Tylenol, laid in a cool bath but the pain continued to worsen. She called her PCP who advised that she come to the ER as she had a bout of pancreatitis last year December. No fevers or chills. No dysuria or hematuria. No further complaints. Related Data Home Medications Medication Instructions Recorded Confirmed multivitamin 1 tablet PO DAILY 12/03/21 02/10/24 Allergies Allergy/AdvReac Type Severity Reaction Status Date / Time semaglutide AdvReac Severe pancreatiti Verified 02/10/24 15:29 s Review of Systems Review of Systems: All systems reviewed & are unremarkable except as noted in HPI and below PMFSH Past Medical History Medical History Controlled diabetes mellitus type II without complication Degenerative joint disease of left hip Diabetes mellitus out of control Essential (primary) hypertension Fibroid Hypertension Left hip pain Lumbar disc disease Morbid obesity with BMI of 40.0-44.9, adult Obesity Pure hyperglyceridemia Surgical History Surgical History History of lithotripsy History of lumbar fusion s/p L4-S1 fusion/fixation History of partial hysterectomy Family History Family History Unknown Hypertension Mom Cardiovascular disease Mom Diabetes mellitus grandparents, aunts HLD (hyperlipidemia) MOM Father Chronic leukemia Social History Social History Social History: Smoking status: Never smoker Second hand tobacco smoke exposure: No Alcohol intake: current Alcohol use details: Rarely Substance use: never Substance use type: does not use Do You Feel Safe in your Home?: Yes Lack of Transportation: No Lack of Food: Never True Current Housing: I Have Housing Concerned About Future Housing: No Difficulty Paying Gas/Electric Bills: No Difficulty Paying for Meds: No Currently Unemployed: No Education: Bachelor's Degree Difficulty w/ Childcare or Family Care: No Living arrangements: with family Occupation/Education: occupation Gender identity (if verbalized by the patient): Female Sexual Orientation (if Verbalized by the Patient): Straight or Heterosexual Spiritual care concerns: No Exam Narrative: GENERAL: Distress secondary to nausea and pain, tearful HEAD: Normocephalic, atraumatic. EYES: PERRLA and EOMI. ENT: Mucous membranes moist. NECK: Supple. CHEST: Clear to auscultation. No respiratory distress. HEART: Regular rate and rhythm ABDOMEN: Soft, + epigastric and left upper quadrant tenderness, no rebound EXTREMITIES: Normal range of motion SKIN: Warm, dry, no rash. NEURO: No focal deficits. Alert and oriented x3. PSYCH: Normal mood and affect. Course Vital Signs Vital signs: Vital Signs Temperature 97.3 F L 07/14/24 10:19 Pulse Rate 103 H 07/14/24 10:19 Respiratory Rate 18 07/14/24 10:19 Blood Pressure 151/111 H 07/14/24 10:19 Pulse Oximetry 96 07/14/24 10:19 Temperature 97.3 F L 07/14/24 10:19 Pulse Rate 98 07/14/24 13:30 Respiratory Rate 16 07/14/24 13:30 Blood Pressure 157/107 H 07/14/24 13:01 Pulse Oximetry 95 07/14/24 13:30 MDM - Abdominal Pain MDM Narrative Medical decision making narrative: 53-year-old female presenting with vomiting and abdominal pain. Bowels are stable. Exam remarkable for the above. CT abdomen pelvis with esophagitis. No other acute abn
[2024-07-14] MEDS: HYDROmorphone HCL INJ (*CRX) 1 MG/ML SYR IV PUSH (12:43)
[2024-07-14] MEDS: ONDANSETRON INJ 4 MG/2 ML VIAL IV PUSH (12:43)
[2024-07-14] MEDS: SODIUM CHLORIDE 0.9% IV 1,000 ML 999 ML IV CONT ×2 (12:44→14:40)
[2024-07-14 12:57] LABS: Basophils Absolute Auto 0.1 K/mm3 (0.0-0.1); Basophils Percent Auto 0.5 % (0.2-1.2); Eosinophils Percent Auto 0.3 % (0-4.4); Hematocrit 44.5 % (37.0-47.0); Hemoglobin 15.3 g/dL (12.0-15.0); Immature Granulocyte Absolute 0.06 K/mm3 (0.00-0.031); Immature Granulocyte Percent A 0.5 % (0-0.5); Lymphocytes Absolute Auto 1.93 K/mm3 (0.9-3.2); Lymphocytes Percent Auto 15.1 % (18.3-44.2); Mean Corpuscular HGB Conc 34.4 g/dl (32-36); Mean Corpuscular Hemoglobin 30.5 pg (26-34); Mean Corpuscular Volume 88.8 fl (80-100); Mean Platelet Volume 8.4 fl (7.4-10.4); Monocytes Absolute Auto 0.6 K/mm3 (0.1-0.6); Monocytes Percent Auto 4.9 % (2.6-8.5); Neutrophils Absolute Auto 10.1 K/mm3 (1.3-6.7); Neutrophils Percent Auto 78.7 % (45.5-73.1); Platelet Count Result 336 k/mm3 (150-375); Red Blood Count 5.01 M/mm3 (4.2-5.4); Red Cell Distribution Width 13.2 % (11.5-14.5); White Blood Count 12.8 K/mm3 (4.5-10.0)
[2024-07-14 13:06] LABS: Alanine Aminotransferase 23 U/L (6-35); Albumin Level 4.7 g/dL (3.5-5.1); Alkaline Phosphatase 80 U/L (38-126); Anion Gap 12 mmol/L (4-12); Aspartate Amino Transferase 28 U/L (14-36); Bilirubin,Total 0.6 mg/dL (0.2-1.3); Blood Urea Nitrogen 14 mg/dL (7-17); Calcium 9.6 mg/dL (8.4-10.2); Carbon Dioxide 27 mmol/L (22-30); Chloride 103 mmol/L (98-107); Estimated Glomerular Filt Rate > 60; Glucose 108 mg/dL (65-110); Lipase 66 U/L (23-300); Magnesium 1.8 mg/dL (1.6-2.3); Potassium 3.8 mmol/L (3.4-5.0); Sodium 142 mmol/L (137-145)
[2024-07-14] MEDS: FAMOTIDINE 20 MG/2 ML VIAL IV PUSH (13:49)
[2024-07-14] MEDS: BELLADONNA ALK/PHENOB ELIX 10 ML, MAG HYDROX/ALUMINUM HYD/SIMETH 30 ML, LIDOCAINE HCL 2... PO (14:11)
[2024-07-14 14:16] LABS: Add Urine Microscopic? NO; Appearance Urine Clear (Clear); Bilirubin Urine Negative (Negative); Blood Urine Negative (Negative); Color Urine Yellow (Yellow); Glucose Urine UA Negative (Negative); Ketones Urine 1+ mg/dL (Negative); Leukocyte Esterase Ur Negative LEU/UL (Negative); Nitrate Urine Negative (Negative); Protein Urine Negative (Negative); Specific Grav Ur > 1.045 (1.001-1.035); Urobilinogen Urine 0.2 mg/dL (<2.0)
[2024-07-14] MEDS: HYDROmorphone HCL INJ (*CRX) 1 MG/ML SYR 0.5 MG IV PUSH (14:50)
[2024-07-14] MEDS: oxyCODONE HCL (*CRX) 5 MG TAB IR PO (17:18)
[2024-07-14] MEDS: SUCRALFATE SUSP 100 MG/ML 10 ML UDC 1000 MG PO (17:38)
== END 2024-07-14 18:55 | disposition home or self-care (01) ==
PROVIDERS: Emergency Provider Emergency Medicine; PCP Family Medicine
DX: K20.90 Esophagitis, unspecified without bleeding (principal); I10 Essential (primary) hypertension; E11.9 Type 2 diabetes mellitus without complications; E66.01 Morbid (severe) obesity due to excess calories; E78.1 Pure hyperglyceridemia; M16.12 Unilateral primary osteoarthritis, left hip; Z98.1 Arthrodesis status; Z90.711 Acquired absence of uterus with remaining cervical stump; Z79.890 Hormone replacement therapy; Z79.899 Other long term (current) drug therapy
CPT/HCPCS: 36415; 74177; 80053; 81003; 83690; 83735; 85025; 93005; 96361; 96374; 96375; 96376; 99284; A9270; J1170; J2405; J7030; Q9967

== ENCOUNTER 2024-07-16 05:42 | Inpatient (IN) | payer BC, SELFPAY ==
[2024-07-16] VITALS (8 sets, daily range): BP systolic 105–160; BP diastolic 72–118; PULSE 91–117; RESP 12–20; TEMP 36.6–37; O2SAT 96–99; BMI 44.5
--- NOTE | ~2024-07-16 | MR_ITS ---
EXAMINATION: MR MRCP wo/w con/w 3D wo ind DATE: 07/17/2024 15:38 INDICATION: Choledocholithiasis and abnormal liver function tests TECHNIQUE: Magnetic resonance imaging (MRI) of the abdomen was performed without and with 20 mL Multi michael intravenous contrast. Sequences included coronal T2-weighted SS-FSE, coronal T2-weighted FS SS- FSE, coronal T2-weighted FS FIESTA, axial T2-weighted FS FIESTA, axial T2-weighted FIESTA, sagittal T 2-weighted SS-FSE, axial T1-weighted dual-echo FSPGR, axial T2-weighted SS-FSE, axial T1-weighted LAV A, axial T2-weighted STIR FSE. Thick-slab T2-weighted FRFSE-XL images were obtained for magnetic reso nance cholangiopancreatography (MRCP). Rotating maximum intensity projection 3-D reconstructions of t he volumetric data were created by the technologist. Postcontrast sequences included a time course of axial T1-weighted LAVA. COMPARISON: CT dated 07/16/2024 FINDINGS: ABDOMEN MRI: Heart size is normal. No pericardial or pleural effusion. Mild diffuse hepatic steatosis. There is mi ld periportal edema. Wall thickening of the decompressed gallbladder which contains a couple small st ones at the fundus. There are couple <5 mm nonenhancing T2 hyperintense cyst at the upper poles of juan daniel th kidneys. Spleen and bilateral adrenal glands are normal. There is mild peripancreatic edema at the head and uncinate process of the pancreas suspicious for acute interstitial pancreatitis. Visualized portion of the bowels including the appendix are normal. Visualized bladder is unremarkable. No path ologically enlarged abdominal lymphadenopathy. There is metallic magnetic field artifact associated w ith instrumentation for a combined anterior and posterior lower lumbar spinal fusion. Bone marrow sig nal is otherwise unremarkable. ABDOMEN MRCP: The common bile duct is normal in caliber measuring up to 3 mm in maximal diameter. No evident choledocholithiasis. There does appear to be some enhancing wall thickening of the common goldie e duct which could be reactive or related to ascending cholangitis. The main pancreatic duct is also normal in caliber. IMPRESSION: 1. Periportal edema, the edematous wall thickening of the nondilated gallbladder, enhancing mild wall thickening of the normal caliber common bile duct and anderson hepatis and about the head of the pancre as. Findings are concerning for either acute interstitial pancreatitis or ascending cholangitis. Azucena elate with lipase levels. 2. A couple gallstones in the gallbladder without evident obstructing choledocholithiasis or biliary ductal dilation. Reviewed, dictated and finalized at location A. IMPRESSION: 1. Periportal edema, the edematous wall thickening of the nondilated gallbladde r, enhancing mild wall thickening of the normal caliber common bile duct and po rta hepatis and about the head of the pancreas. Findings are concerning for eit her acute interstitial pancreatitis or ascending cholangitis. Correlate with li pase levels. 2. A couple gallstones in the gallbladder without evident obstructing choledoch olithiasis or biliary ductal dilation.
--- NOTE | ~2024-07-16 | CT_ITS ---
CT of the Abdomen and Pelvis: Indication: Abdominal pain, transaminitis Technique: 2.5 mm axial scans were obtained through the abdomen and pelvis following intravenous adm inistration of 100 cc of Omnipaque 350. Dose reduction technique was used on this scan by utilizing a utomated exposure control and iterative reconstruction technique. The dose-length product (DLP) was 1 613.25 mGy-cm. COMPARISON: 07/14/2024 Findings: Scans through the lung bases are unremarkable. There is diffuse hepatic steatosis. There is gallbladder wall thickening. The spleen, pancreas, adre nals and left kidney are within normal limits. 3 mm nonobstructing right renal stone present. No evid ence of aortic aneurysm. No lymphadenopathy. No bowel obstruction or bowel wall thickening. There is no evidence to suggest acute appendicitis. In tramuscular lipoma noted in the left lower quadrant abdominal wall musculature. Images through the pelvis were performed. Urinary bladder unremarkable. No pelvic mass seen. No ascit es. Impression: Gallbladder wall thickening, nonspecific. Correlate for acute cholecystitis. Consider ultrasound and/ or HIDA scan for further evaluation as indicated. Diffuse hepatic steatosis. 3 mm nonobstructing right renal stone. Reviewed, dictated and finalized at [facility]. Impression: Gallbladder wall thickening, nonspecific. Correlate for acute cholecystitis. Co nsider ultrasound and/or HIDA scan for further evaluation as indicated. Diffuse hepatic steatosis. 3 mm nonobstructing right renal stone.
--- NOTE | ~2024-07-16 | US_ITS ---
EXAMINATION: US abdomen limited DATE: 07/16/2024 09:32 INDICATION: Cholecystitis TECHNIQUE: Multiple grayscale and Doppler ultrasound images of the abdomen were obtained. COMPARISON: 07/16/2024 FINDINGS: The pancreatic head and body are normal in appearance. The pancreatic tail is not visualized. Liver has normal contour, with a smooth surface. There is increased parenchymal echogenicity and coarsened echotexture consistent with diffuse hepatic steatosis. No liver lesion identified. No intrahepatic b iliary duct dilation suspected. Portal venous flow was seen in the hepatopetal, normal direction and has normal Doppler waveform. Gallbladder is nondistended but demonstrates some gallbladder wall thick ening and trace amount of pericholecystic fluid. There are a couple small echogenic lesions without d efinite posterior acoustic shadowing at the fundus of the gallbladder equivocal for gallstones versus sludge balls. Sonographic Miner sign was reported as negative by the electrical engineering professor although sensitivi ty could be decreased by reported prior analgesic administration. The common bile duct measures 4 mm in diameter which is normal. The right kidney measures 13.6 x 5.8 x 5.9 cm and demonstrates normal co ntour and echogenicity with no hydronephrosis. IMPRESSION: 1. Echogenic sludge balls versus gallstones in the fundus of the gallbladder which demonstrates wall thickening and pericholecystic fluid suspicious for acute cholecystitis but without annalee distention of the gallbladder and with negative sonographic Miner sign. This is equivocal for acute, chronic or resolving cholecystitis with differential for gallbladder wall thickening also including liver, di l or heart disease or other generalized edema forming states. Could consider HIDA scan for further ev aluation as clinically indicated. Reviewed, dictated and finalized at location [facility]. IMPRESSION: 1. Echogenic sludge balls versus gallstones in the fundus of the gallbladder wh ich demonstrates wall thickening and pericholecystic fluid suspicious for acute cholecystitis but without annalee distention of the gallbladder and with negativ e sonographic Miner sign. This is equivocal for acute, chronic or resolving ch olecystitis with differential for gallbladder wall thickening also including li yesika, renal or heart disease or other generalized edema forming states. Could co nsider HIDA scan for further evaluation as clinically indicated.
[2024-07-16 06:43] LABS: Basophils Percent Auto 0.3 % (0.2-1.2); Eosinophils Absolute Auto 0.1 K/mm3 (0-0.3); Eosinophils Percent Auto 0.9 % (0-4.4); Hematocrit 43.5 % (37.0-47.0); Immature Granulocyte Absolute 0.06 K/mm3 (0.00-0.031); Immature Granulocyte Percent A 0.5 % (0-0.5); Lymphocytes Absolute Auto 2.19 K/mm3 (0.9-3.2); Mean Corpuscular HGB Conc 34.5 g/dl (32-36); Mean Corpuscular Hemoglobin 30.7 pg (26-34); Mean Corpuscular Volume 89.1 fl (80-100); Mean Platelet Volume 8.4 fl (7.4-10.4); Monocytes Absolute Auto 0.6 K/mm3 (0.1-0.6); Monocytes Percent Auto 5.2 % (2.6-8.5); Neutrophils Absolute Auto 9.1 K/mm3 (1.3-6.7); Neutrophils Percent Auto 75.1 % (45.5-73.1); Platelet Count Result 320 k/mm3 (150-375); Red Blood Count 4.88 M/mm3 (4.2-5.4); Red Cell Distribution Width 13.4 % (11.5-14.5); White Blood Count 12.2 K/mm3 (4.5-10.0)
[2024-07-16 06:56] LABS: Alanine Aminotransferase 173 U/L (6-35); Albumin Level 4.3 g/dL (3.5-5.1); Alkaline Phosphatase 188 U/L (38-126); Anion Gap 11 mmol/L (4-12); Aspartate Amino Transferase 398 U/L (14-36); Bilirubin,Total 2.2 mg/dL (0.2-1.3); Blood Urea Nitrogen 7 mg/dL (7-17); Calcium 9.3 mg/dL (8.4-10.2); Carbon Dioxide 27 mmol/L (22-30); Chloride 101 mmol/L (98-107); Estimated CRCL calculation 145 ml/min; Estimated Glomerular Filt Rate > 60; Glucose 149 mg/dL (65-110); Lipase 91 U/L (23-300); Potassium 3.5 mmol/L (3.4-5.0); Sodium 139 mmol/L (137-145)
[2024-07-16] MEDS: LACTATED RINGERS 1,000 ML 999 ML IV CONT (07:54)
[2024-07-16] MEDS: FAMOTIDINE 20 MG/2 ML VIAL IV PUSH (07:56)
[2024-07-16] MEDS: fentaNYL CITRATE INJ (*CRX) 100 MCG/2 ML VIAL IV PUSH (07:56)
[2024-07-16] MEDS: ONDANSETRON INJ 4 MG/2 ML VIAL IV PUSH ×2 (07:56→22:09)
--- NOTE | 2024-07-16 07:58 | ECG_ITS ---
Test Date: 2024-07-16 09:09:03 Measurements Intervals [place] Rate: 89 P: 46 CA: 146 QRS: 20 QRSD: 108 T: 41 QT: 348 QTc: 425 Interpretive Statements SINUS RHYTHM NORMAL ELECTROCARDIOGRAM Compared to ECG 07/14/2024 11:07:47 No significant changes Electronically Signed On 07-17-2024 07:18:53 CDT by Galo Tinoco M.D.
--- NOTE | 2024-07-16 08:00 | ED.ABDPAIN ---
HPI - Abdominal Pain General Chief Complaint: Abdominal Pain Stated Complaint: headache, fever, pain Time Seen by Provider: 07/16/24 07:42 History of Present Illness HPI narrative: This is a 53-year-old female with a past medical history significant for hypertension, hyperlipidemia, controlled type 2 diabetes and previous pancreatitis who presents to the emergency department for repeat evaluation of abdominal pain. She was seen 2 days prior in this emergency department and underwent a full workup including CT scans which revealed esophagitis. Patient was improved upon discharge however she had recurrence of her epigastric abdominal pain that is now starting radiating towards her back and diffusely throughout the abdomen. She has been having nauseousness and vomiting as well as intermittent chest pains. Patient was instructed to return to the emergency department if her pain worsened and she presents today for repeat evaluation. She states she has been feeling feverish at home but denies any chills or rigors. States she has been taking Tylenol at home as well as her prescribed Carafate and Zofran without any improvement her symptoms. Has no history of blood clots or any coronary disease to her knowledge. Patient states the pain resembles her previous pancreatitis she has had several years prior but still has her gallbladder and does not drink alcohol extensively. No recent medication changes. Denies any trauma. Versus a minor headache presently but denies any vision changes, chest pain presently, shortness of breath, neuropathy, weakness fatigue for dysuria, hematuria or GI symptoms otherwise such as melena or hematochezia. Related Data Home Medications Medication Instructions Recorded Confirmed multivitamin 1 tablet PO DAILY 12/03/21 02/10/24 Allergies Allergy/AdvReac Type Severity Reaction Status Date / Time semaglutide AdvReac Severe pancreatiti Verified 07/16/24 07:46 s Review of Systems Review of Systems: As reviewed above in the HPI [facility] Past Medical History Medical History Controlled diabetes mellitus type II without complication Degenerative joint disease of left hip Diabetes mellitus out of control Essential (primary) hypertension Fibroid Hypertension Left hip pain Lumbar disc disease Morbid obesity with BMI of 40.0-44.9, adult Obesity Pure hyperglyceridemia Surgical History Surgical History History of lithotripsy History of lumbar fusion s/p L4-S1 fusion/fixation History of partial hysterectomy Family History Family History Unknown Hypertension Mom Cardiovascular disease Mom Diabetes mellitus grandparents, aunts HLD (hyperlipidemia) MOM Father Chronic leukemia Social History Social History Social History: Smoking status: Never smoker Second hand tobacco smoke exposure: No Alcohol intake: current Alcohol use details: Rarely Substance use: never Substance use type: does not use Do You Feel Safe in your Home?: Yes Lack of Transportation: No Lack of Food: Never True Current Housing: I Have Housing Concerned About Future Housing: No Difficulty Paying Gas/Electric Bills: No Difficulty Paying for Meds: No Currently Unemployed: No Education: Bachelor's Degree Difficulty w/ Childcare or Family Care: No Living arrangements: with family Occupation/Education: occupation Gender identity (if verbalized by the patient): Female Sexual Orientation (if Verbalized by the Patient): Straight or Heterosexual Spiritual care concerns: No Exam Narrative: GENERAL: [Well-appearing, well-nourished, and in no acute distress.] HEAD: [Normocephalic, atraumatic.] EYES: [PERRLA and
[2024-07-16] MEDS: SUCRALFATE 1 GM TABLET PO (08:43)
[2024-07-16 09:25] LABS: Lactic Acid Reflex 1.3 mmol/L (0.7-2.0)
[2024-07-16 09:27] LABS: Troponin I < 0.012 ng/mL (0.000-0.034)
[2024-07-16 09:43] LABS: Add Urine Microscopic? YES; Appearance Urine Clear (Clear); Bacteria Urine None Seen /hpf; Bilirubin Urine 1+ (Negative); Blood Urine Negative (Negative); Color Urine Dark Yellow (Yellow); Glucose Urine UA Negative (Negative); Ketones Urine Trace mg/dL (Negative); Leukocyte Esterase Ur Negative LEU/UL (Negative); Nitrate Urine Negative (Negative); Non Pathogenic Casts 0-2; Protein Urine Trace mg/dL (Negative); Specific Grav Ur > 1.045 (1.001-1.035); Squamous Epithelial Cell Urine None Seen /hpf (Few); WBC Urine 0-5 /hpf (0-3); pH Urine 7.5 (5.0-9.0)
--- NOTE | 2024-07-16 11:26 | PM.IMHP ---
H&P: HPI History of Present Illness Date/Time: 07/16/24 11:26 Chief Complaint: Abdominal pain Narrative: This is a 53-year-old female with a significant past medical history of hypertension, hyperlipidemia, type 2 diabetes, pancreatitis, obesity, recent lumbar fusion, partial hysterectomy who presented to the hospital for evaluation of abdominal pain, headache, fever. Patient states that her pain started this past Tuesday and she was seen in our ER and discharged with a diagnosis of esophagitis. She was started on Pepcid, Carafate, and Zofran and was instructed if the pain worsened to come back to the ED. She did take a few doses of her medication but had little to no relief. Overnight the pain became worse to the point she was doubled over, became diaphoretic with fever, had pain that was radiating from epigastric region to midback, and numbness in her feet. She came back to the ER for further evaluation. Currently she reports nausea, headache, colicky abdominal pain that radiates to her back. She denies any fever, chills, vomiting, diarrhea, chest pain, shortness a breath, lightheadedness, dizziness. She also states that the numbness in her feet has resolved. Workup in the hospital included a CT of the abdomen and pelvis which showed gallbladder wall thickening consistent with acute cholecystitis, diffuse hepatic steatosis, 3 mm nonobstructing right renal stone. Ultrasound of the abdomen showed echogenic sludge balls versus gallstones in the fundus of the gallbladder which demonstrates wall thickening and pericholecystic fluid suspicious for acute cholecystitis but without annalee distension of the gallbladder and with negative Miner sign. Initial labs shown a white blood cell count of 12.2, lactic acid 1.3, total bili 2.2, AST 398, ALT 173, alk-phos 188, troponin negative, lipase 91. UA was obtained and showed a urine specific gravity of greater than 1.045, trace ketone, 1+ urine bilirubin, 3-5 urine RBC, otherwise normal. EKG showed sinus rhythm with a rate of 89, QTC 425. Patient was given 1 L of LR, Tylenol, Zofran, fentanyl, Pepcid, Carafate, Flagyl and Rocephin while in the ED. General surgery was consulted. Review of Systems Review of Systems: All systems reviewed & are unremarkable except as noted in HPI and below Constitutional: Constitutional: Reports as per HPI and Reports no additional constitutional complaints Eyes: Eyes: Reports as per HPI and Reports no additional eye complaints ENT: Reports system reviewed and no additional complaints, except as documented and Reports as per HPI Cardiovascular: Cardiovascular: Reports as per HPI and Reports no additional cardiovascular complaints Respiratory: Respiratory: Reports as per HPI and Reports no additional respiratory complaints Gastrointestinal: Gastrointestinal: Reports as per HPI and Reports no additional gastrointestinal complaints Genitourinary: Genitourinary: Reports no additional female genitourinary complaints and Reports as per HPI Musculoskeletal: Musculoskeletal: Reports no additional musculoskeletal complaints and Reports as per HPI Integumentary/Breasts: Skin/Breast: Reports system reviewed and no additional complaints, except as docu and Reports as per HPI Neurologic: Reports system reviewed and no additional complaints, except as documented and Reports as per HPI Psychiatric: Psychiatric: Reports no additional psychiatric complaints and Reports as per HPI [facility] Past Medical History Medical History Controlled diabetes mellitus type II without complication Degenerative joint disease of left hip Diabetes mellitus out of control Essential (primary) hypertension Fibroid Hypertension Left hip pain Lumbar disc disease Morbid obesity with BMI of 40.0-44.9, adult Obesity Pure hyperglyceridemia Surgical History Surgical History (Updated 07/16/24 @ 13:17 by Nelly Ahumada APRN) History of lithotripsy
[2024-07-16] MEDS: metroNIDAZOLE 500 MG/ISO 100ML 500 MG/100 ML BAG 100 MG IVPB (11:30)
[2024-07-16] MEDS: ACETAMINOPHEN 500 MG TABLET 1000 MG PO (11:48)
--- NOTE | 2024-07-16 13:08 | PM.CNGS ---
Assessment and Plan Assessment and plan (1) Choledocholithiasis with cholecystitis: Code(s): K80.40 - Calculus of bile duct with cholecystitis, unspecified, without obstruction Status: Acute Assessment and Plan: Patient unable to obtain an MRCP secondary to previous back surgery, will trend labs in the morning continue serial exams, clears for now and NPO after midnight History of Present Illness Consult details Consult date: 07/16/24 Reason for consult: abdominal pain Requesting physician: Osiel Prado MD Narrative: The patient old female with multiple medical issues presenting to the emergency department complaining of severe epigastric, right upper quadrant abdominal pain. The patient reports associated nausea, emesis, bloating. The patient reports the pain radiates to her back and into her chest. The patient reports the symptoms have been progressively worsening over the last week. The patient reports a similar episode a couple of years ago and was diagnosed pancreatitis at that time. Workup in the emergency department, including imaging, is significant for acute cholecystitis, possible choledocholithiasis. Review of Systems Review of Systems: All systems reviewed & are unremarkable except as noted in HPI and below PMFSH Past Medical History Medical History Controlled diabetes mellitus type II without complication Degenerative joint disease of left hip Diabetes mellitus out of control Essential (primary) hypertension Fibroid Hypertension Left hip pain Lumbar disc disease Morbid obesity with BMI of 40.0-44.9, adult Obesity Pure hyperglyceridemia Surgical History Surgical History History of lithotripsy History of lumbar fusion s/p L4-S1 fusion/fixation History of partial hysterectomy Family History Family History Unknown Hypertension Mom Cardiovascular disease Mom Diabetes mellitus grandparents, aunts HLD (hyperlipidemia) MOM Father Chronic leukemia Social History Social History Social History: Smoking status: Never smoker Second hand tobacco smoke exposure: No Alcohol intake: current Alcohol use details: Rarely Substance use: never Substance use type: does not use Do You Feel Safe in your Home?: Yes Lack of Transportation: No Lack of Food: Never True Current Housing: I Have Housing Concerned About Future Housing: No Difficulty Paying Gas/Electric Bills: No Difficulty Paying for Meds: No Currently Unemployed: No Education: Bachelor's Degree Difficulty w/ Childcare or Family Care: No Living arrangements: with family Occupation/Education: occupation Gender identity (if verbalized by the patient): Female Sexual Orientation (if Verbalized by the Patient): Straight or Heterosexual Spiritual care concerns: No Meds Home Medications and Allergies Home Medications Medication Instructions Recorded Confirmed Type multivitamin 1 tablet PO DAILY 12/03/21 02/10/24 History blood sugar diagnostic (OneTouch #100 ea 09/07/23 02/10/24 Rx Verio test strips) lisinopril 30 mg tablet 30 mg PO DAILY #90 tabs 10/06/23 02/10/24 Rx hydrochlorothiazide 25 mg tablet 25 mg PO DAILY #90 tabs 10/31/23 02/10/24 Rx lancets 33 gauge ([facility] 10/31/23 02/10/24 Rx Plus Lancet) estradiol 1 mg tablet 0.5 mg PO DAILY #1 tablet 02/10/24 02/10/24 Rx famotidine 20 mg tablet (Pepcid) 20 mg PO DAILY #30 tabs 07/14/24 Rx ondansetron 4 mg disintegrating 4 mg PO Q8H PRN nausea and 07/14/24 Rx tablet vomiting #20 tabs sucralfate 100 mg/mL oral 1 g (10 mL) PO TID PRN abdominal 07/14/24 Rx suspension (Carafate) pain #200 mL Allergies Allergy/AdvReac Type Severity Reaction Status Date / T
[2024-07-16 13:20] LABS: Glucose Point of Care 110 mg/dl (65-105)
[2024-07-16] MEDS: HYDROcodone/acetaminophen (*CRX) 5-325 MG TABLET 1 TAB PO ×2 (13:34→18:21)
--- NOTE | 2024-07-16 15:08 | ADMGEN ---
This patient, Aristeo Bashir, was admitted to Medical Room 249-01. Patient/family oriented to hospital policies and general routines including ID bracelet, bed and alarms, visiting hours, pain management, procedures, bathroom and other care routines, personal items, smoking policy, room service/diet, and visiting hours. Information on how to activate the Rapid Response Team has been discussed. Patient/Family are encouraged to report perceived risks to care and to ask questions if they do not understand what they are told or what they should do.
[2024-07-16 19:00] LABS: Glucose Point of Care 136 mg/dl (65-105)
[2024-07-16] MEDS: FAMOTIDINE 20 MG TABLET PO (21:17)
[2024-07-16] MEDS: HYDROmorphone HCL INJ (*CRX) 1 MG/ML SYR IV PUSH (22:09)
[2024-07-16 23:19] LABS: Glucose Point of Care 99 mg/dl (65-105)
[2024-07-17] MEDS: HYDROmorphone HCL INJ (*CRX) 1 MG/ML SYR IV PUSH ×4 (02:56→13:18)
[2024-07-17 06:21] LABS: Glucose Point of Care 112 mg/dl (65-105)
[2024-07-17 06:47] LABS: Basophils Percent Auto 0.2 % (0.2-1.2); Eosinophils Absolute Auto 0.1 K/mm3 (0-0.3); Eosinophils Percent Auto 1.2 % (0-4.4); Hematocrit 44.6 % (37.0-47.0); Hemoglobin 14.3 g/dL (12.0-15.0); Immature Granulocyte Absolute 0.06 K/mm3 (0.00-0.031); Immature Granulocyte Percent A 0.7 % (0-0.5); Lymphocytes Absolute Auto 1.18 K/mm3 (0.9-3.2); Lymphocytes Percent Auto 12.9 % (18.3-44.2); Mean Corpuscular HGB Conc 32.1 g/dl (32-36); Mean Corpuscular Hemoglobin 29.5 pg (26-34); Mean Corpuscular Volume 92.1 fl (80-100); Mean Platelet Volume 8.6 fl (7.4-10.4); Monocytes Absolute Auto 0.6 K/mm3 (0.1-0.6); Monocytes Percent Auto 6.3 % (2.6-8.5); Neutrophils Absolute Auto 7.2 K/mm3 (1.3-6.7); Neutrophils Percent Auto 78.7 % (45.5-73.1); Platelet Count Result 289 k/mm3 (150-375); Red Blood Count 4.84 M/mm3 (4.2-5.4); Red Cell Distribution Width 13.5 % (11.5-14.5); White Blood Count 9.1 K/mm3 (4.5-10.0)
[2024-07-17] MEDS: ONDANSETRON INJ 4 MG/2 ML VIAL IV PUSH (06:48)
[2024-07-17 06:53] VITALS: BP 147/81; PULSE 102; RESP 16; TEMP 37.6; O2SAT 95
[2024-07-17 06:58] LABS: Alanine Aminotransferase 479 U/L (6-35); Albumin Level 4.2 g/dL (3.5-5.1); Alkaline Phosphatase 260 U/L (38-126); Anion Gap 10 mmol/L (4-12); Aspartate Amino Transferase 470 U/L (14-36); Bilirubin,Total 5.7 mg/dL (0.2-1.3); Blood Urea Nitrogen 5 mg/dL (7-17); Calcium 9.1 mg/dL (8.4-10.2); Carbon Dioxide 29 mmol/L (22-30); Chloride 98 mmol/L (98-107); Estimated CRCL calculation 176 ml/min; Estimated Glomerular Filt Rate > 60; Glucose 120 mg/dL (65-110); Potassium 3.8 mmol/L (3.4-5.0); Sodium 137 mmol/L (137-145)
--- NOTE | 2024-07-17 08:35 | WPDGICN ---
Assessment and Plan Assessment and plan (1) Generalized abdominal pain: Code(s): R10.84 - Generalized abdominal pain Status: Acute (2) Epigastric pain: Code(s): R10.13 - Epigastric pain Status: Acute (3) Elevated LFTs: Code(s): R79.89 - Other specified abnormal findings of blood chemistry Status: Acute (4) Choledocholithiasis: Code(s): K80.50 - Calculus of bile duct without cholangitis or cholecystitis without obstruction Status: Acute (5) Hepatic steatosis: Code(s): K76.0 - Fatty (change of) liver, not elsewhere classified Status: Acute (6) Abnormal digestive system diagnostic imaging: Code(s): R93.3 - Abnormal findings on diagnostic imaging of other parts of digestive tract Status: Acute (7) Esophagitis: Code(s): K20.90 - Esophagitis, unspecified without bleeding Status: Inactive Plan 1. Generalized abdominal pain /chest pain / choledocholithiasis / abnormal LFTs/ Sclera icterus: The patient has never had an EGD. Last colonoscopy in September of 2023 was normal. Patient admits to a weight loss of > 70 lb prior to her back surgery in May of 2023 with the use of weight loss medications. Patient had an acute episode of pancreatitis in December of 2023 at which time lipase was >20,000. Last MRCP on 01/08/2024 showed cholelithiasis in the nondilated gallbladder with no choledocholithiasis or intra or extra hepatic biliary ductal dilation. Following this episode of pancreatitis the patient's lipase and LFTs had normalized. Patient was seen in the emergency room 07/14/2024 with complaints of abdominal pain at which time she was told she had esophagitis, during that ER visit her LFTs and lipase were normal. She presented back to the ER on 07/16/2024 with epigastric and right upper quadrant pain radiating to the chest/epigastric region. Pain is worse with eating. Abdominal ultrasound on 07/16/2024 showed echogenic sludge balls versus gallstones in the fundus of the gallbladder which demonstrates wall thickening and pericholecystic fluid suspicious for acute cholecystitis. LFTs have been trending up in since admission showing total bilirubin 2.2-->5.7, AST 398-->470, ALT 173-->479, and Alk Phos 188-->260. Labs today show WBC is 9, HGB 14, HCT 45, platelets 289 , and lipase 91. Patients temp today 99.7. I personally spoke with the office of [facility] Dana Santillan who is the provider working with Neurosurgery that has been monitoring the patient since her spinal surgery. It was verified that the patient has no contraindications to MRCP or cholecystectomy as the only post operative issues that the patient has been dealing with his SI joint pain. The patient is on no NSAIDs, aspirin, or anticoagulants. MRCP ordered, if biliary obstruction noted we will proceed with ERCP if no obstruction noted further recommendations per surgery on possible cholecystectomy keep patient NPO continue supportive care with pain management and antiemetics continue antibiotics further recs to follow imaging 2. Abnormal imaging digestive/esophagitis: CT 07/14/2024 showed wall thickening in the distal esophagus consistent with esophagitis. Patient denies any reflux symptoms. She is currently on famotidine. Patient has never had an EGD. continue famotidine 20 mg b.i.d. will consider outpatient EGD which we can further discuss at follow-up office visit 3. Hepatic steatosis: Previous imaging showed fatty liver. Risk factors include obesity, hyperlipidemia, and diabetes. patient has no history of chronic LFT elevation but LFTs have been acutely elevated in December and during this admission. weight loss, healthy eating, cholesterol control, blood sugar control, alcohol avoidance, and exercise recommended can be followed as outpatient Thank you very much for allowing me to share in the care of this very nice patient. This report may have been done utilizing a voice r
[2024-07-17] MEDS: hydroCHLOROthiazide 25 MG TABLET PO (10:31)
[2024-07-17] MEDS: lisinopriL 10 MG TABLET 30 MG PO (10:31)
[2024-07-17 11:53] LABS: Glucose Point of Care 102 mg/dl (65-105)
[2024-07-17 13:12] VITALS: BP 146/83; TEMP 38.7
[2024-07-17 13:17] VITALS: TEMP 38.7
[2024-07-17] MEDS: ACETAMINOPHEN 325 MG TABLET 650 MG PO (13:17)
--- NOTE | 2024-07-17 13:21 | P.PNIM_ITS ---
Progress Note: A&P Assessment and Plan (1) SIRS (systemic inflammatory response syndrome): Code(s): R65.10 - Systemic inflammatory response syndrome (SIRS) of non-infectious origin without acute organ dysfunction Status: Acute Assessment and Plan: 07/16/24: * Likely secondary to acute cholecystitis * Initially meeting SIRS criteria with heart rate of 117, white blood cell count of 12.2 * Patient was given 1 L of LR in the ED * Patient was also given a dose of Flagyl and Rocephin while in the ED (2) Acute cholecystitis: Code(s): K81.0 - Acute cholecystitis Status: Acute Assessment and Plan: 07/17/24: * Abdomen/pelvis CT revealed gallbladder wall thickening representing acute cholecystitis, diffuse hepatic steatosis, 3 mm nonobstructing right renal stone. * Ultrasound of the abdomen revealed an echogenic sludge ball versus gallstones in the fundus of the gallbladder which demonstrates wall thickening and pericholecystic fluid suspicious for acute cholecystitis but without annalee distension of the gallbladder and with negative Miner sign. * White blood cell count 9.1 * General surgery consulted * Patient started on Rocephin and Flagyl * Ordered blood cultures * MRCP ordered and pending * Continue pain and nausea control * Will remain NPO for now * T.Bili :2.2> 5.74, Uptrending AST/ALT : 470/474 , ALP 80> 188> 260 (3) Transaminitis: Code(s): R74.01 - Elevation of levels of liver transaminase levels Status: Acute Assessment and Plan: 07/17/24: * Likely secondary to acute cholecystitis * T.Bili :2.2> 5.74, Uptrending AST/ALT : 470/474 , ALP 80> 188> 260 * Continue to trend (4) Essential (primary) hypertension: Code(s): I10 - Essential (primary) hypertension Status: Acute Assessment and Plan: 07/17/24: * Blood pressure 146/83 * Continue lisinopril and hydrochlorothiazide (5) Controlled diabetes mellitus type II without complication: Code(s): E11.9 - Type 2 diabetes mellitus without complications Status: Acute Assessment and Plan: 07/17/24: * Blood sugars ranging 108-149 * Hgb A1C 5.9 on 02/04/2024 * Accu checks q.6 hour * High-dose SSI ordered for NPO patient's ordered * hypoglycemic protocol in place * Currently NPO, will place on diabetic diet when able (6) History of lumbar fusion: Code(s): Z98.1 - Arthrodesis status Status: Acute Assessment and Plan: 07/17/24: * Recent lumbar fusion of L4-S1 and has not been cleared from her surgical procedure as of yet. Subjective Date/time seen: 07/17/24 13:21 Interval history: Patient complains of right upper quadrant pain, fever . Patient reports of pancreatitis December 2023 and she believes it is because of the Ozempic which he stopped. Last week patient started having abdominal pain which she thought due to pancreatitis. In the ED she was diagnosed with esophagitis and discharged. Patient returned back to the ED with same abdominal pain when she was diagnosed with acute cholecystitis. On current admission with Gastroenterology and surgery is consulted. Patient is awaiting MRCP. Patient is started on antibiotic and blood culture has been drawn. Review of Systems Review of Systems: All systems reviewed & are unremarkable except as noted in HPI and below Constitutional: Constitutional: Reports as per HPI and Reports no additional constitutional complaints Eyes: Eyes: Reports as per HPI and Reports no additional eye complaints ENT: Reports system reviewed and no danny
--- NOTE | 2024-07-17 13:21 | PM.IMPN ---
Progress Note: A&P Assessment and Plan (1) SIRS (systemic inflammatory response syndrome): Code(s): R65.10 - Systemic inflammatory response syndrome (SIRS) of non-infectious origin without acute organ dysfunction Status: Acute Assessment and Plan: 07/16/24: Likely secondary to acute cholecystitis Initially meeting SIRS criteria with heart rate of 117, white blood cell count of 12.2 Patient was given 1 L of LR in the ED Patient was also given a dose of Flagyl and Rocephin while in the ED (2) Acute cholecystitis: Code(s): K81.0 - Acute cholecystitis Status: Acute Assessment and Plan: 07/17/24: Abdomen/pelvis CT revealed gallbladder wall thickening representing acute cholecystitis, diffuse hepatic steatosis, 3 mm nonobstructing right renal stone. Ultrasound of the abdomen revealed an echogenic sludge ball versus gallstones in the fundus of the gallbladder which demonstrates wall thickening and pericholecystic fluid suspicious for acute cholecystitis but without annalee distension of the gallbladder and with negative Miner sign. White blood cell count 9.1 General surgery consulted Patient started on Rocephin and Flagyl Ordered blood cultures MRCP ordered and pending Continue pain and nausea control Will remain NPO for now T.Bili :2.2> 5.74, Uptrending AST/ALT : 470/474 , ALP 80> 188> 260 (3) Transaminitis: Code(s): R74.01 - Elevation of levels of liver transaminase levels Status: Acute Assessment and Plan: 07/17/24: Likely secondary to acute cholecystitis T.Bili :2.2> 5.74, Uptrending AST/ALT : 470/474 , ALP 80> 188> 260 Continue to trend (4) Essential (primary) hypertension: Code(s): I10 - Essential (primary) hypertension Status: Acute Assessment and Plan: 07/17/24: Blood pressure 146/83 Continue lisinopril and hydrochlorothiazide (5) Controlled diabetes mellitus type II without complication: Code(s): E11.9 - Type 2 diabetes mellitus without complications Status: Acute Assessment and Plan: 07/17/24: Blood sugars ranging 108-149 Hgb A1C 5.9 on 02/04/2024 Accu checks q.6 hour High-dose SSI ordered for NPO patient's ordered hypoglycemic protocol in place Currently NPO, will place on diabetic diet when able (6) History of lumbar fusion: Code(s): Z98.1 - Arthrodesis status Status: Acute Assessment and Plan: 07/17/24: Recent lumbar fusion of L4-S1 and has not been cleared from her surgical procedure as of yet. Subjective Date/time seen: 07/17/24 13:21 Interval history: Patient complains of right upper quadrant pain, fever . Patient reports of pancreatitis December 2023 and she believes it is because of the Ozempic which he stopped. Last week patient started having abdominal pain which she thought due to pancreatitis. In the ED she was diagnosed with esophagitis and discharged. Patient returned back to the ED with same abdominal pain when she was diagnosed with acute cholecystitis. On current admission with Gastroenterology and surgery is consulted. Patient is awaiting MRCP. Patient is started on antibiotic and blood culture has been drawn. Review of Systems Review of Systems: All systems reviewed & are unremarkable except as noted in HPI and below Constitutional: Constitutional: Reports as per HPI and Reports no additional constitutional complaints Eyes: Eyes: Reports as per HPI and Reports no additional eye complaints ENT: Reports system reviewed and no additional complaints, except as documented and Reports as per HPI Cardiovascular: Cardiovascular: Reports as per HPI and Reports no additional cardiovascular complaints Respiratory: Respiratory: Reports as per HPI and Reports no additional respiratory complaints Gastrointestinal: Gastrointestinal: Reports as per HPI and Reports no additional gastrointestinal complaints Genitourinary: Genitourinary: Reports no additional female gen
[2024-07-17 14:00] VITALS: BP 116/74; PULSE 107; RESP 16; TEMP 36.7; O2SAT 90
[2024-07-17] MEDS: cefTRIAXone 2 GM/NS 100 ML 2 GM/100 ML BAG IVPB (14:13)
--- NOTE | 2024-07-17 15:10 | PM.PNGS ---
Progress Note: A&P Assessment and Plan (1) Choledocholithiasis with cholecystitis: Code(s): K80.40 - Calculus of bile duct with cholecystitis, unspecified, without obstruction Status: Acute Assessment and Plan: worsening LFTs today, MRCP, GI consult, cont IV abx Subjective Subjective Date/Time Seen: 07/17/24 15:10 Interval history: feels a little better after pain meds, still c pain, nausea Review of Systems Review of Systems: All systems reviewed & are unremarkable except as noted in HPI and below Exam Const: General: cooperative, no acute distress, uncomfortable and obese Resp: Auscultation: clear to auscultation bilaterally Cardio: Rate: regular rate Rhythm: regular rhythm GI: Inspection: normal to inspection, distended and obesity GI Palp: Yes abdominal tenderness, Yes Soft to palpation, Yes Tenderness to palpation present (GI) and No Guarding due to palpation present (GI) Objective Data Vital Signs Vital Signs: Vital Signs - 24 hr 07/16/24 22:11 07/16/24 20:45 07/17/24 06:53 Temperature 36.8 C 37.6 C H Pulse Rate 96 102 H Respiratory Rate 16 16 Blood Pressure 143/72 H 147/81 H Pulse Oximetry 99 95 Oxygen Delivery Room Air 07/17/24 13:12 07/17/24 13:17 Temperature 38.7 C H 38.7 C H Pulse Rate Respiratory Rate Blood Pressure 146/83 H Pulse Oximetry Oxygen Delivery Intake/Output Intake/Output: Intake & Output 07/14/24 07/15/24 07/16/24 07/17/24 23:59 23:59 23:59 23:59 Intake Total 1570 300 Balance 1570 300 Meds/Results Medications: Active Medications Generic Name Dose Route Start Last Admin Trade Name Freq PRN Reason Stop Dose Admin Acetaminophen 650 mg 07/16/24 11:47 07/17/24 13:17 Acetaminophen 325 Mg Tablet PO 650 mg Q4H PRN Administration Mild Pain (1-3) or Fever Hydrocodone Bitart/Acetaminophen 1 tab 07/16/24 11:47 07/16/24 18:21 Hydrocodone/Acetaminophen (*Crx) 5-325 Mg Tablet PO 1 tab Q4H PRN Administration Moderate Pain (4-6) Hydrocodone Bitart/Acetaminophen 2 tab 07/16/24 21:39 Hydrocodone/Acetaminophen (*Crx) 5-325 Mg Tablet PO Q4H PRN Pain Rated 7-10 Dextrose 12.5 gm 07/16/24 11:51 Dextrose 50% 25 Gm/50 Ml Syringe IV PUSH PRN PRN Hypoglycemia Protocol Famotidine 20 mg 07/16/24 21:00 07/17/24 11:15 Famotidine 20 Mg Tablet PO Not Given Q12HR TOMMY Famotidine 20 mg 07/17/24 09:00 07/17/24 11:15 Famotidine 20 Mg Tablet PO Not Given DAILY TOMMY Glucagon 1 mg 07/16/24 11:51 Glucagon For Inj 1 Mg Vial IM PRN PRN Hypoglycemia Protocol Glucose 15 gm 07/16/24 11:51 Glucose Oral Gel 15 Gm Of Glucse In 37.5 Gm Tube PO PRN PRN Hypoglycemia Protocol Hydrochlorothiazide 25 mg 07/17/24 09:00 07/17/24 10:31 Hydrochlorothiazide 25 Mg Tablet PO 25 mg DAILY TOMMY Administration Hydromorphone HCl 1 mg 07/16/24 21:38 07/17/24 13:18 Hydromorphone Hcl Inj (*Crx) 1 Mg/Ml Syr IV PUSH 1 mg Q3H PRN Administration Pain Rated 7-10 Dextrose 1,000 mls @ 100 mls/hr 07/16/24 11:51 Dextrose 5% 1,000 Ml IVPB PRN PRN Hypoglycemia Protocol Ceftriaxone Sodium 2 gm in 100 mls @ 200 mls/hr 07/17/24 13:00 07/17/24 14:13 Rocephin 2 Gm/Ns 100 Ml IVPB 150 mls/hr DAILY TOMMY Administration Metronidazole 500 mg in 100 mls @ 100 mls/hr 07/17/24 13:00 Flagyl 500 Mg/Iso Soln 100 Ml IVPB Q8HR [facility] Insulin Aspart 4 - 8 units 07/16/24 12:00 07/17/24 13:03 Insulin Aspart (*Bkc) 100 Units/Ml SUB-Q Not Given Q6HR [facility] Protocol Lisinopril 30 mg 07/17/24 09:00 07/17/24 10:31 Lisinopril 10 Mg Tablet PO 30 mg DAILY TOMMY Administration Multivitamins Therapeutic 1 tablet 07/17/24 09:00 07/17/24 11:15 Multivitamins Therapeutic Tab (*Bkc) PO Not Given DAILY [facility] Ondansetron HCl 4 mg 07/16/24 11:47 07/17/24 06:48 Ondansetron Inj 4 Mg/2 Ml
[2024-07-17] MEDS: metroNIDAZOLE 500 MG/ISO 100ML 500 MG/100 ML BAG 100 MG IVPB ×2 (16:25→21:14)
[2024-07-17 19:59] LABS: Glucose Point of Care 93 mg/dl (65-105)
[2024-07-17 20:20] VITALS: BP 128/78; PULSE 82; RESP 20; TEMP 36.9; O2SAT 98
[2024-07-17] MEDS: HYDROcodone/acetaminophen (*CRX) 5-325 MG TABLET 1 TAB PO (22:17)
[2024-07-18 00:09] LABS: Glucose Point of Care 104 mg/dl (65-105)
[2024-07-18 05:48] LABS: Basophils Percent Auto 0.5 % (0.2-1.2); Eosinophils Absolute Auto 0.2 K/mm3 (0-0.3); Eosinophils Percent Auto 2.3 % (0-4.4); Hematocrit 39.7 % (37.0-47.0); Hemoglobin 13.2 g/dL (12.0-15.0); Immature Granulocyte Absolute 0.04 K/mm3 (0.00-0.031); Immature Granulocyte Percent A 0.6 % (0-0.5); Lymphocytes Absolute Auto 1.11 K/mm3 (0.9-3.2); Lymphocytes Percent Auto 17.1 % (18.3-44.2); Mean Corpuscular HGB Conc 33.2 g/dl (32-36); Mean Corpuscular Hemoglobin 30.2 pg (26-34); Mean Corpuscular Volume 90.8 fl (80-100); Mean Platelet Volume 8.3 fl (7.4-10.4); Monocytes Absolute Auto 0.4 K/mm3 (0.1-0.6); Neutrophils Absolute Auto 4.8 K/mm3 (1.3-6.7); Neutrophils Percent Auto 73.5 % (45.5-73.1); Platelet Count Result 262 k/mm3 (150-375); Red Blood Count 4.37 M/mm3 (4.2-5.4); Red Cell Distribution Width 13.6 % (11.5-14.5); White Blood Count 6.5 K/mm3 (4.5-10.0)
[2024-07-18 06:00] VITALS: BP 123/79; PULSE 89; RESP 18; TEMP 36.8; O2SAT 95
[2024-07-18 06:02] LABS: Alanine Aminotransferase 340 U/L (6-35); Albumin Level 3.8 g/dL (3.5-5.1); Alkaline Phosphatase 247 U/L (38-126); Amylase 310 U/L (30-110); Anion Gap 11 mmol/L (4-12); Aspartate Amino Transferase 197 U/L (14-36); Bilirubin,Total 4.3 mg/dL (0.2-1.3); Blood Urea Nitrogen 8 mg/dL (7-17); Calcium 8.9 mg/dL (8.4-10.2); Carbon Dioxide 31 mmol/L (22-30); Chloride 96 mmol/L (98-107); Estimated CRCL calculation 176 ml/min; Estimated Glomerular Filt Rate > 60; Glucose 104 mg/dL (65-110); Lipase 1044 U/L (23-300); Sodium 138 mmol/L (137-145)
[2024-07-18] MEDS: metroNIDAZOLE 500 MG/ISO 100ML 500 MG/100 ML BAG 100 MG IVPB ×3 (06:16→21:01)
[2024-07-18 06:45] LABS: Glucose Point of Care 113 mg/dl (65-105)
[2024-07-18] MEDS: cefTRIAXone 2 GM/NS 100 ML 2 GM/100 ML BAG IVPB (09:39)
[2024-07-18] MEDS: hydroCHLOROthiazide 25 MG TABLET PO (09:40)
[2024-07-18] MEDS: lisinopriL 10 MG TABLET 30 MG PO (09:40)
[2024-07-18] MEDS: MULTIVITAMINS THERAPEUTIC TAB (*BKC) 1 TABLET PO (09:40)
[2024-07-18] MEDS: PANTOPRAZOLE SODIUM IV 40 MG VIAL IV PUSH (09:41)
--- NOTE | 2024-07-18 09:56 | PM.PNGS ---
Progress Note: A&P Assessment and Plan (1) Acute cholecystitis: Code(s): K81.0 - Acute cholecystitis Status: Acute Assessment and Plan: exam much improved, labs trending down, MRCP reviewed, long d/w pt re: cholecystectomy, pt would like to put off surgery for now, will start diet and cont abx, if genevieve diet and labs cont to trend toward normal can go on low fat diet and po abx, plans to f/u as outpt to schedule cholecystectomy Subjective Subjective Date/Time Seen: 07/18/24 09:56 Interval history: feels much better today, only mild TTP in RUQ Review of Systems Review of Systems: All systems reviewed & are unremarkable except as noted in HPI and below Exam Const: General: cooperative, comfortable, no acute distress and obese Resp: Auscultation: clear to auscultation bilaterally Cardio: Rate: regular rate Rhythm: regular rhythm GI: Inspection: normal to inspection and distended GI Palp: Yes abdominal tenderness, Yes Soft to palpation, Yes Tenderness to palpation present (GI), No Guarding due to palpation present (GI) and No Rigid due to palpation Objective Data Vital Signs Vital Signs: Vital Signs - 24 hr 07/17/24 13:12 07/17/24 13:17 07/17/24 10:30 Temperature 38.7 C H 38.7 C H Pulse Rate Respiratory Rate Blood Pressure 146/83 H Pulse Oximetry Oxygen Delivery Room Air 07/17/24 14:00 07/17/24 20:20 07/17/24 21:08 Temperature 36.7 C 36.9 C Pulse Rate 107 H 82 Respiratory Rate 16 20 Blood Pressure 116/74 128/78 Pulse Oximetry 90 98 Oxygen Delivery Room Air 07/18/24 06:00 Temperature 36.8 C Pulse Rate 89 Respiratory Rate 18 Blood Pressure 123/79 Pulse Oximetry 95 Oxygen Delivery Intake/Output Intake/Output: Intake & Output 07/15/24 07/16/24 07/17/24 07/18/24 23:59 23:59 23:59 23:59 Intake Total 1570 840 580 Balance 1570 840 580 Meds/Results Medications: Active Medications Generic Name Dose Route Start Last Admin Trade Name Freq PRN Reason Stop Dose Admin Acetaminophen 650 mg 07/16/24 11:47 07/17/24 13:17 Acetaminophen 325 Mg Tablet PO 650 mg Q4H PRN Administration Mild Pain (1-3) or Fever Hydrocodone Bitart/Acetaminophen 1 tab 07/16/24 11:47 07/17/24 22:17 Hydrocodone/Acetaminophen (*Crx) 5-325 Mg Tablet PO 1 tab Q4H PRN Administration Moderate Pain (4-6) Hydrocodone Bitart/Acetaminophen 2 tab 07/16/24 21:39 Hydrocodone/Acetaminophen (*Crx) 5-325 Mg Tablet PO Q4H PRN Pain Rated 7-10 Dextrose 12.5 gm 07/16/24 11:51 Dextrose 50% 25 Gm/50 Ml Syringe IV PUSH PRN PRN Hypoglycemia Protocol Famotidine 20 mg 07/16/24 21:00 07/17/24 11:15 Famotidine 20 Mg Tablet PO Not Given Q12HR TOMMY Famotidine 20 mg 07/17/24 09:00 07/17/24 11:15 Famotidine 20 Mg Tablet PO Not Given DAILY TOMMY Glucagon 1 mg 07/16/24 11:51 Glucagon For Inj 1 Mg Vial IM PRN PRN Hypoglycemia Protocol Glucose 15 gm 07/16/24 11:51 Glucose Oral Gel 15 Gm Of Glucse In 37.5 Gm Tube PO PRN PRN Hypoglycemia Protocol Hydrochlorothiazide 25 mg 07/17/24 09:00 07/18/24 09:40 Hydrochlorothiazide 25 Mg Tablet PO 25 mg DAILY TOMMY Administration Hydromorphone HCl 1 mg 07/16/24 21:38 07/17/24 13:18 Hydromorphone Hcl Inj (*Crx) 1 Mg/Ml Syr IV PUSH 1 mg Q3H PRN Administration Pain Rated 7-10 Dextrose 1,000 mls @ 100 mls/hr 07/16/24 11:51 Dextrose 5% 1,000 Ml IVPB PRN PRN Hypoglycemia Protocol Ceftriaxone Sodium 2 gm in 100 mls @ 200 mls/hr 07/17/24 13:00 07/18/24 09:39 Rocephin 2 Gm/Ns 100 Ml IVPB 200 mls/hr DAILY TOMMY Administration Metronidazole 500 mg in 100 mls @ 100 mls/hr 07/17/24 13:00 07/18/24 07:16 Flagyl 500 Mg/Iso Soln 100 Ml IVPB Infused Q8HR TOMMY Infusion Insulin Aspart 4 - 8 units 07/16/24 12:00 07/18/24 07:08 Insulin Aspart (*Bk) 100 Units/Ml SUB-Q Not Given
[2024-07-18 11:54] LABS: Glucose Point of Care 202 mg/dl (65-105)
--- NOTE | 2024-07-18 13:18 | P.PNIM_ITS ---
Progress Note: A&P Assessment and Plan (1) SIRS (systemic inflammatory response syndrome): Code(s): R65.10 - Systemic inflammatory response syndrome (SIRS) of non-infectious origin without acute organ dysfunction Status: Acute Assessment and Plan: 07/18/24:Resolved * Likely secondary to acute cholecystitis * Initially meeting SIRS criteria with heart rate of 117, white blood cell count of 12.2 * Patient was given 1 L of LR in the ED * Patient was also given a dose of Flagyl and Rocephin while in the ED (2) Acute cholecystitis: Code(s): K81.0 - Acute cholecystitis Status: Acute Assessment and Plan: 07/18/24: * Abdomen/pelvis CT revealed gallbladder wall thickening representing acute cholecystitis, diffuse hepatic steatosis, 3 mm nonobstructing right renal stone. * Ultrasound of the abdomen revealed an echogenic sludge ball versus gallstones in the fundus of the gallbladder which demonstrates wall thickening and pericholecystic fluid suspicious for acute cholecystitis but without annalee distension of the gallbladder and with negative Miner sign. * MRCP : 1. Periportal edema, the edematous wall thickening of the nondilated gallbladder, enhancing mild wall thickening of the normal caliber common bile duct and anderson hepatis and about the head of the pancreas. Findings are concerning for either acute interstitial pancreatitis or ascending cholangitis. Correlate with lipase levels. 2. A couple gallstones in the gallbladder without evident obstructing choledocholithiasis or biliary ductal dilation. * General surgery consulted * Cont Rocephin and Flagyl * Ordered blood cultures * Continue pain and nausea control * Diet advanced as tolerated * T.Bili :2.2> 5.74 < 4.3 AST/ALT : 470/474 < 340/247 , ALP 80> 188> 260 < 247 (3) Transaminitis: Code(s): R74.01 - Elevation of levels of liver transaminase levels Status: Acute Assessment and Plan: 07/18/24: * Likely secondary to acute cholecystitis * T.Bili :2.2> 5.74 < 4.3 AST/ALT : 470/474 < 340/247 , ALP 80> 188> 260 < 247 * Continue to trend (4) Essential (primary) hypertension: Code(s): I10 - Essential (primary) hypertension Status: Acute Assessment and Plan: 07/18/24: * Blood pressure 146/83 * Continue lisinopril and hydrochlorothiazide (5) Controlled diabetes mellitus type II without complication: Code(s): E11.9 - Type 2 diabetes mellitus without complications Status: Acute Assessment and Plan: 07/18/24: * Blood sugars ranging 108-149 * Hgb A1C 5.9 on 02/04/2024 * Accu checks q.6 hour * hypoglycemic protocol in place (6) History of lumbar fusion: Code(s): Z98.1 - Arthrodesis status Status: Acute Assessment and Plan: 07/18/24: * Recent lumbar fusion of L4-S1 and has not been cleared from her surgical procedure as of yet. Subjective Date/time seen: 07/18/24 13:18 Interval history: Patient is currently doing well. Patient underwent MRCP yesterday which shows couple gallstones in the gallbladder without evident obstructing c holedocholithiasis or biliary ductal dilation. Patient is started on with diet and tolerating well. Patient does not want to do the cholecystectomy on current admission. Patient will follow-up with the surgery upon discharge. Following Gastroenterology and surgery recommendations. Ordered HbA1c. Review of Systems Review of Systems: All systems reviewed & are unremarkable except as noted in HPI and below Constitutional: Constitutional: Reports as per HPI
--- NOTE | 2024-07-18 13:18 | PM.IMPN ---
Progress Note: A&P Assessment and Plan (1) SIRS (systemic inflammatory response syndrome): Code(s): R65.10 - Systemic inflammatory response syndrome (SIRS) of non-infectious origin without acute organ dysfunction Status: Acute Assessment and Plan: 07/18/24:Resolved Likely secondary to acute cholecystitis Initially meeting SIRS criteria with heart rate of 117, white blood cell count of 12.2 Patient was given 1 L of LR in the ED Patient was also given a dose of Flagyl and Rocephin while in the ED (2) Acute cholecystitis: Code(s): K81.0 - Acute cholecystitis Status: Acute Assessment and Plan: 07/18/24: Abdomen/pelvis CT revealed gallbladder wall thickening representing acute cholecystitis, diffuse hepatic steatosis, 3 mm nonobstructing right renal stone. Ultrasound of the abdomen revealed an echogenic sludge ball versus gallstones in the fundus of the gallbladder which demonstrates wall thickening and pericholecystic fluid suspicious for acute cholecystitis but without annalee distension of the gallbladder and with negative Miner sign. MRCP : 1. Periportal edema, the edematous wall thickening of the nondilated gallbladder, enhancing mild wall thickening of the normal caliber common bile duct and anderson hepatis and about the head of the pancreas. Findings are concerning for either acute interstitial pancreatitis or ascending cholangitis. Correlate with lipase levels. 2. A couple gallstones in the gallbladder without evident obstructing choledocholithiasis or biliary ductal dilation. General surgery consulted Cont Rocephin and Flagyl Ordered blood cultures Continue pain and nausea control Diet advanced as tolerated T.Bili :2.2> 5.74 < 4.3 AST/ALT : 470/474 < 340/247 , ALP 80> 188> 260 < 247 (3) Transaminitis: Code(s): R74.01 - Elevation of levels of liver transaminase levels Status: Acute Assessment and Plan: 07/18/24: Likely secondary to acute cholecystitis T.Bili :2.2> 5.74 < 4.3 AST/ALT : 470/474 < 340/247 , ALP 80> 188> 260 < 247 Continue to trend (4) Essential (primary) hypertension: Code(s): I10 - Essential (primary) hypertension Status: Acute Assessment and Plan: 07/18/24: Blood pressure 146/83 Continue lisinopril and hydrochlorothiazide (5) Controlled diabetes mellitus type II without complication: Code(s): E11.9 - Type 2 diabetes mellitus without complications Status: Acute Assessment and Plan: 07/18/24: Blood sugars ranging 108-149 Hgb A1C 5.9 on 02/04/2024 Accu checks q.6 hour [address] protocol in [address] (6) History of lumbar fusion: Code(s): Z98.1 - Arthrodesis status Status: Acute Assessment and Plan: 07/18/24: Recent lumbar fusion of L4-S1 and has not been cleared from her surgical procedure as of yet. Subjective Date/time seen: 07/18/24 13:18 Interval history: Patient is currently doing well. Patient underwent MRCP yesterday which shows couple gallstones in the gallbladder without evident obstructing choledocholithiasis or biliary ductal dilation. Patient is started on with diet and tolerating well. Patient does not want to do the cholecystectomy on current admission. Patient will follow-up with the surgery upon discharge. Following Gastroenterology and surgery recommendations. Ordered HbA1c. Review of Systems Review of Systems: All systems reviewed & are unremarkable except as noted in HPI and below Constitutional: Constitutional: Reports as per HPI and Reports no additional constitutional complaints Eyes: Eyes: Reports as per HPI and Reports no additional eye complaints ENT: Reports system reviewed and no additional complaints, except as documented and Reports as per HPI Cardiovascular: Cardiovascular: Reports as per HPI and Reports no additional cardiovascular complaints Respiratory: Respiratory: Reports as per HPI and Reports no additional respiratory
[2024-07-18 13:38] LABS: Glucose Point of Care 140 mg/dl (65-105)
[2024-07-18 13:54] LABS: Hemoglobin A1C 5.8 % (<5.7)
[2024-07-18 14:00] VITALS: BP 125/77; PULSE 94; RESP 14; TEMP 36.8; O2SAT 97
--- NOTE | 2024-07-18 16:42 | WPDGIPROGNO ---
Progress Note: A&P Assessment and Plan (1) Acute cholecystitis: Code(s): K81.0 - Acute cholecystitis Status: Acute Assessment and Plan: responding to antibiotics, much better mrcp reviewed, no choledocholithiasis, some inflammation and today had elevated lipase/amylase possible pancreatitis but pain is almost gone now tolerating diet patient prefers to have outpatient lap timo, timing per surgery (2) Elevated LFTs: Code(s): R79.89 - Other specified abnormal findings of blood chemistry Status: Acute Assessment and Plan: continue to trend (3) Gallstone pancreatitis: Code(s): K85.10 - Biliary acute pancreatitis without necrosis or infection Status: Acute (4) Epigastric pain: Code(s): R10.13 - Epigastric pain Status: Acute (5) Hepatic steatosis: Code(s): K76.0 - Fatty (change of) liver, not elsewhere classified Status: Acute Subjective Date/time seen: 07/18/24 16:42 Interval history: tolerating liquid diet and pain is gone, much better Review of Systems Review of Systems: All systems reviewed & are unremarkable except as noted in HPI and below Exam Const: General: cooperative, comfortable, no acute distress and obese HENMT: Face/Nose/Sinus: Normal nares present Eyes: General: appearance normal, both eyes and all related structures Neck: Neck: supple Resp: Auscultation: clear to auscultation bilaterally Cardio: Rate: regular rate Rhythm: regular rhythm GI: Inspection: normal to inspection and distended GI Palp: Yes abdominal tenderness, Yes Soft to palpation, Yes Tenderness to palpation present (GI) (minimal tender, no rebound), No Guarding due to palpation present (GI) and No Rigid due to palpation Skin: General skin exam: no rashes or lesions noted Neuro: Speech: normal speech Motor exam (neuro): 5/5 motor strength present throughout Extrem: General: normal to inspection Psych: Mental Status: mental status grossly normal Objective Data Vital Signs Vital Signs: Vital Signs - 24 hr 07/17/24 20:20 07/17/24 21:08 07/18/24 06:00 Temperature 98.4 F 98.2 F Pulse Rate 82 89 Respiratory Rate 20 18 Blood Pressure 128/78 123/79 Pulse Oximetry 98 95 Oxygen Delivery Room Air 07/18/24 09:40 07/18/24 14:00 Temperature 98.2 F Pulse Rate 94 Respiratory Rate 14 Blood Pressure 125/77 Pulse Oximetry 97 Oxygen Delivery Room Air Intake/Output Intake/Output: Intake & Output 07/15/24 07/16/24 07/17/24 07/18/24 23:59 23:59 23:59 23:59 Intake Total 1570 840 920 Balance 1570 840 920 Meds/Results Medications: Active Medications Generic Name Dose Route Start Last Admin Trade Name Freq PRN Reason Stop Dose Admin Acetaminophen 650 mg 07/16/24 11:47 07/17/24 13:17 Acetaminophen 325 Mg Tablet PO 650 mg Q4H PRN Administration Mild Pain (1-3) or Fever Hydrocodone Bitart/Acetaminophen 1 tab 07/16/24 11:47 07/17/24 22:17 Hydrocodone/Acetaminophen (*Crx) 5-325 Mg Tablet PO 1 tab Q4H PRN Administration Moderate Pain (4-6) Hydrocodone Bitart/Acetaminophen 2 tab 07/16/24 21:39 Hydrocodone/Acetaminophen (*Crx) 5-325 Mg Tablet PO Q4H PRN Pain Rated 7-10 Dextrose 12.5 gm 07/16/24 11:51 Dextrose 50% 25 Gm/50 Ml Syringe IV PUSH PRN PRN Hypoglycemia Protocol Famotidine 20 mg 07/16/24 21:00 07/17/24 11:15 Famotidine 20 Mg Tablet PO Not Given Q12HR TOMMY Famotidine 20 mg 07/17/24 09:00 07/17/24 11:15 Famotidine 20 Mg Tablet PO Not Given DAILY TOMMY Glucagon 1 mg 07/16/24 11:51 Glucagon For Inj 1 Mg Vial IM PRN PRN Hypoglycemia Protocol Glucose 15 gm 07/16/24 11:51 Glucose Oral Gel 15 Gm Of Glucse In 37.5 Gm Tube PO PRN PRN Hypoglycemia Protocol Hydrochlorothiazide 25 mg 07/17/24 09:00 07/18/24 09:40 Hydrochlorothiazide 25 Mg Tablet PO 25 mg DAILY [facility] Administratio
[2024-07-18 20:44] VITALS: BP 126/93; PULSE 103; RESP 18; TEMP 37; O2SAT 98
[2024-07-18 22:59] LABS: Glucose Point of Care 97 mg/dl (65-105)
[2024-07-19 04:52] LABS: Glucose Point of Care 119 mg/dl (65-105)
[2024-07-19] MEDS: metroNIDAZOLE 500 MG/ISO 100ML 500 MG/100 ML BAG 100 MG IVPB (05:25)
[2024-07-19 05:46] LABS: Basophils Percent Auto 0.5 % (0.2-1.2); Eosinophils Absolute Auto 0.2 K/mm3 (0-0.3); Eosinophils Percent Auto 2.2 % (0-4.4); Hematocrit 40.2 % (37.0-47.0); Hemoglobin 13.6 g/dL (12.0-15.0); Immature Granulocyte Absolute 0.04 K/mm3 (0.00-0.031); Immature Granulocyte Percent A 0.5 % (0-0.5); Lymphocytes Absolute Auto 1.57 K/mm3 (0.9-3.2); Lymphocytes Percent Auto 21.5 % (18.3-44.2); Mean Corpuscular HGB Conc 33.8 g/dl (32-36); Mean Corpuscular Hemoglobin 30.6 pg (26-34); Mean Corpuscular Volume 90.5 fl (80-100); Mean Platelet Volume 8.3 fl (7.4-10.4); Monocytes Absolute Auto 0.5 K/mm3 (0.1-0.6); Monocytes Percent Auto 7.3 % (2.6-8.5); Platelet Count Result 305 k/mm3 (150-375); Red Blood Count 4.44 M/mm3 (4.2-5.4); Red Cell Distribution Width 13.7 % (11.5-14.5); White Blood Count 7.3 K/mm3 (4.5-10.0)
[2024-07-19 05:59] VITALS: BP 114/65; PULSE 89; RESP 20; TEMP 36.9; O2SAT 96
[2024-07-19 06:00] LABS: Alanine Aminotransferase 222 U/L (6-35); Albumin Level 3.8 g/dL (3.5-5.1); Alkaline Phosphatase 235 U/L (38-126); Anion Gap 11 mmol/L (4-12); Aspartate Amino Transferase 64 U/L (14-36); Bilirubin,Total 1.6 mg/dL (0.2-1.3); Blood Urea Nitrogen 7 mg/dL (7-17); Calcium 9.1 mg/dL (8.4-10.2); Carbon Dioxide 29 mmol/L (22-30); Chloride 96 mmol/L (98-107); Estimated CRCL calculation 176 ml/min; Estimated Glomerular Filt Rate > 60; Glucose 117 mg/dL (65-110); Sodium 136 mmol/L (137-145)
[2024-07-19 08:01] LABS: Glucose Point of Care 119 mg/dl (65-105)
[2024-07-19] MEDS: hydroCHLOROthiazide 25 MG TABLET PO (08:20)
[2024-07-19] MEDS: lisinopriL 10 MG TABLET 30 MG PO (08:20)
[2024-07-19] MEDS: MULTIVITAMINS THERAPEUTIC TAB (*BKC) 1 TABLET PO (08:21)
[2024-07-19] MEDS: PANTOPRAZOLE SODIUM IV 40 MG VIAL IV PUSH (08:21)
[2024-07-19] MEDS: cefTRIAXone 2 GM/NS 100 ML 2 GM/100 ML BAG IVPB (09:20)
--- NOTE | 2024-07-19 09:47 | PM.PNGS ---
Progress Note: A&P Assessment and Plan (1) Gallstone pancreatitis: Code(s): K85.10 - Biliary acute pancreatitis without necrosis or infection Status: Acute Assessment and Plan: much improved, home c po abx and low fat diet, f/u 1-2 wks to setup interval cholecystectomy Subjective Subjective Date/Time Seen: 07/19/24 09:47 Interval history: feels good, no pain, genevieve low fat diet Review of Systems Review of Systems: All systems reviewed & are unremarkable except as noted in HPI and below Exam Const: General: cooperative, comfortable and no acute distress Resp: Auscultation: clear to auscultation bilaterally Cardio: Rate: regular rate Rhythm: regular rhythm GI: Inspection: normal to inspection and non-distended GI Palp: No abdominal tenderness, Yes Soft to palpation and No Tenderness to palpation present (GI) Objective Data Vital Signs Vital Signs: Vital Signs - 24 hr 07/18/24 14:00 07/18/24 20:44 07/19/24 05:59 Temperature 36.8 C 37.0 C 36.9 C Pulse Rate 94 103 H 89 Respiratory Rate 14 18 20 Blood Pressure 125/77 126/93 H 114/65 Pulse Oximetry 97 98 96 Intake/Output Intake/Output: Intake & Output 07/16/24 07/17/24 07/18/24 07/19/24 23:59 23:59 23:59 23:59 Intake Total 7856 014 6838 1060 Balance 4918 354 9986 1060 Meds/Results Medications: Active Medications Generic Name Dose Route Start Last Admin Trade Name Freq PRN Reason Stop Dose Admin Acetaminophen 650 mg 07/16/24 11:47 07/17/24 13:17 Acetaminophen 325 Mg Tablet PO 650 mg Q4H PRN Administration Mild Pain (1-3) or Fever Hydrocodone Bitart/Acetaminophen 1 tab 07/16/24 11:47 07/17/24 22:17 Hydrocodone/Acetaminophen (*Crx) 5-325 Mg Tablet PO 1 tab Q4H PRN Administration Moderate Pain (4-6) Hydrocodone Bitart/Acetaminophen 2 tab 07/16/24 21:39 Hydrocodone/Acetaminophen (*Crx) 5-325 Mg Tablet PO Q4H PRN Pain Rated 7-10 Dextrose 12.5 gm 07/16/24 11:51 Dextrose 50% 25 Gm/50 Ml Syringe IV PUSH PRN PRN Hypoglycemia Protocol Famotidine 20 mg 07/16/24 21:00 07/17/24 11:15 Famotidine 20 Mg Tablet PO Not Given Q12HR TOMMY Famotidine 20 mg 07/17/24 09:00 07/17/24 11:15 Famotidine 20 Mg Tablet PO Not Given DAILY TOMMY Glucagon 1 mg 07/16/24 11:51 Glucagon For Inj 1 Mg Vial IM PRN PRN Hypoglycemia Protocol Glucose 15 gm 07/16/24 11:51 Glucose Oral Gel 15 Gm Of Glucse In 37.5 Gm Tube PO PRN PRN Hypoglycemia Protocol Hydrochlorothiazide 25 mg 07/17/24 09:00 07/19/24 08:20 Hydrochlorothiazide 25 Mg Tablet PO 25 mg DAILY TOMMY Administration Hydromorphone HCl 1 mg 07/16/24 21:38 07/17/24 13:18 Hydromorphone Hcl Inj (*Crx) 1 Mg/Ml Syr IV PUSH 1 mg Q3H PRN Administration Pain Rated 7-10 Dextrose 1,000 mls @ 100 mls/hr 07/16/24 11:51 Dextrose 5% 1,000 Ml IVPB PRN PRN Hypoglycemia Protocol Ceftriaxone Sodium 2 gm in 100 mls @ 200 mls/hr 07/17/24 13:00 07/19/24 09:20 Rocephin 2 Gm/Ns 100 Ml IVPB 150 mls/hr DAILY TOMMY Administration Metronidazole 500 mg in 100 mls @ 100 mls/hr 07/17/24 13:00 07/19/24 06:30 Flagyl 500 Mg/Iso Soln 100 Ml IVPB Infused Q8HR [facility] Infusion Insulin Aspart 4 - 8 units 07/16/24 12:00 07/19/24 05:57 Insulin Aspart (*Bkc) 100 Units/Ml SUB-Q Not Given Q6HR [facility] Protocol Lisinopril 30 mg 07/17/24 09:00 07/19/24 08:20 Lisinopril 10 Mg Tablet PO 30 mg DAILY TOMMY Administration Multivitamins Therapeutic 1 tablet 07/17/24 09:00 07/19/24 08:21 Multivitamins Therapeutic Tab (*Bkc) PO 1 tablet DAILY TOMMY Administration Ondansetron HCl 4 mg 07/16/24 11:47 07/17/24 06:48 Ondansetron Inj 4 Mg/2 Ml Vial IV PUSH 4 mg Q6H PRN Administration Nausea And Vomiting Pantoprazole Sodium 40 mg 07/18/24 09:00 07/19/24 08:21 Pantoprazole Sodium Iv 40 Mg Vial IV PUSH 40 mg
[2024-07-19 09:48] VITALS: O2SAT 97
[2024-07-19 11:50] LABS: Glucose Point of Care 169 mg/dl (65-105)
--- NOTE | 2024-07-19 13:03 | PM.DS ---
DS: Admitting Diagnosis Discharge Date 07/19/2024 Admitting Diagnosis Cholecystitis DS: Discharge Diagnosis Discharge Diagnosis (1) SIRS (systemic inflammatory response syndrome): Code(s): R65.10 - Systemic inflammatory response syndrome (SIRS) of non-infectious origin without acute organ dysfunction Status: Acute Assessment and Plan: 07/18/24:Resolved Likely secondary to acute cholecystitis Initially meeting SIRS criteria with heart rate of 117, white blood cell count of 12.2 Patient was given 1 L of LR in the ED Patient was also given a dose of Flagyl and Rocephin while in the ED (2) Acute cholecystitis: Code(s): K81.0 - Acute cholecystitis Status: Acute Assessment and Plan: 07/18/24: Abdomen/pelvis CT revealed gallbladder wall thickening representing acute cholecystitis, diffuse hepatic steatosis, 3 mm nonobstructing right renal stone. Ultrasound of the abdomen revealed an echogenic sludge ball versus gallstones in the fundus of the gallbladder which demonstrates wall thickening and pericholecystic fluid suspicious for acute cholecystitis but without annalee distension of the gallbladder and with negative Miner sign. MRCP : 1. Periportal edema, the edematous wall thickening of the nondilated gallbladder, enhancing mild wall thickening of the normal caliber common bile duct and anderson hepatis and about the head of the pancreas. Findings are concerning for either acute interstitial pancreatitis or ascending cholangitis. Correlate with lipase levels. 2. A couple gallstones in the gallbladder without evident obstructing choledocholithiasis or biliary ductal dilation. General surgery consulted Cont Rocephin and Flagyl Ordered blood cultures Continue pain and nausea control Diet advanced as tolerated T.Bili :2.2> 5.74 < 4.3 AST/ALT : 470/474 < 340/247 , ALP 80> 188> 260 < 247 (3) Transaminitis: Code(s): R74.01 - Elevation of levels of liver transaminase levels Status: Acute Assessment and Plan: 07/18/24: Likely secondary to acute cholecystitis T.Bili :2.2> 5.74 < 4.3 AST/ALT : 470/474 < 340/247 , ALP 80> 188> 260 < 247 Continue to trend (4) Essential (primary) hypertension: Code(s): I10 - Essential (primary) hypertension Status: Acute Assessment and Plan: 07/18/24: Blood pressure 146/83 Continue lisinopril and hydrochlorothiazide (5) Controlled diabetes mellitus type II without complication: Code(s): E11.9 - Type 2 diabetes mellitus without complications Status: Acute Assessment and Plan: 07/18/24: Blood sugars ranging 108-149 Hgb A1C 5.9 on 02/04/2024 Accu checks q.[address] (6) History of lumbar fusion: Code(s): Z98.1 - Arthrodesis status Status: Acute Assessment and Plan: 07/18/24: Recent lumbar fusion of L4-S1 and has not been cleared from her surgical procedure as of yet. DS: Summary Hospital Course Hospital Course: This is a 53-year-old female with a significant past medical history of hypertension, hyperlipidemia, type 2 diabetes, pancreatitis, obesity, recent lumbar fusion, partial hysterectomy who presented to the hospital for evaluation of abdominal pain, headache, fever. Patient states that her pain started this past Tuesday and she was seen in our ER and discharged with a diagnosis of esophagitis. She was started on Pepcid, Carafate, and Zofran and was instructed if the pain worsened to come back to the ED. She did take a few doses of her medication but had little to no relief. Overnight the pain became worse to the point she was doubled over, became diaphoretic with fever, had pain that was radiating from epigastric region to midback, and numbness in her feet. She came back to the ER for further evaluation. Currently she reports nausea, headache, colicky abdominal pain that radiates to her back. She denies any fever, chills, vomiting, diarrhea, c
[2024-07-19] MEDS: POTASSIUM CHLORIDE 20 MEQ PACKET (FOR LIQUID) 40 MEQ PO (13:29)
--- NOTE | 2024-07-20 09:51 | P.CDI_ITS ---
CDI Query Clarification Request Clinical Indicators: MRCP documented on 07/17 with findings concerned for pa ncreatitis or ascending cholangitis, pt initially meeting SIRS criteria with heart rate of 117, white blood cell count of 12.2 on admission Treatment: IV flagyl, IV rocephin, 1L LR in ER SIRS has been documented, using the CDC definitions below, please clarify the appropriate diagnosis for your patients clinical presentation and severity of illness if known. Based on your medical judgment, can you please clarify in the progress note a specific diagnosis associated with the MRCP findings on 07/17/24 if known. * Septicemia: Systemic disease (sepsis) associated with positive blood cultures. * Sepsis: An infection-induced syndrome without organ dysfunction. * Severe Sepsis: Sepsis with associated acute organ dysfunction. * Septic Shock: Severe sepsis in which the cardiovascular system begins to fail, blood pressure drops, and vital organs are deprived of adequate blood supply. <Mariia Bacon RN - Last Filed: 07/20/24 10:58> Clarified Diagnosis Clarified Diagnosis: Sepsis: An infection-induced syndrome without organ dysfunction. <Fer Eckert MD - Last Filed: 07/20/24 17:17>
== END 2024-07-19 13:40 | disposition home or self-care (01) | DRG 872 ==
LOC: ANHED 10:55 → ANH3MEDSUR 14:57 → ANH2MED 07-18 10:06 → ANH3MEDSUR 08-15 07:51 → ANH2MED 08-15 07:51
PROVIDERS: Emergency Medicine; Internal Medicine Gastroenterology; Nurse Practitioner Acute Care; Admitting Provider Internal Medicine; Emergency Provider Student in an Organized Health Care Education/Training Program; PCP Family Medicine; Visit Provider General Practice
DX: A41.9 Sepsis, unspecified organism (principal); K80.00 Calculus of gallbladder with acute cholecystitis without obstruction; Z68.41 Body mass index [BMI] 40.0-44.9, adult; I10 Essential (primary) hypertension; E78.5 Hyperlipidemia, unspecified; E11.9 Type 2 diabetes mellitus without complications; E66.01 Morbid (severe) obesity due to excess calories; K20.90 Esophagitis, unspecified without bleeding; N20.0 Calculus of kidney; M16.12 Unilateral primary osteoarthritis, left hip; Z98.1 Arthrodesis status
CPT/HCPCS: 36415; 74177; 74183; 76376; 76705; 80053; 81001; 81003; 82150; 82948; 83036; 83605; 83690; 83735; 84484; 85025; 87040; 93005; 96361; 96365; 96374; 96375; 96376; 99284; 99285; A9270; A9577; J0696; J1170; J1836; J2405; J2470; J3010; J7030; J7120; Q9967

== ENCOUNTER 2024-08-03 12:25 | Outpatient (CLI) | payer BC, SELFPAY ==
[2024-08-03 13:19] LABS: Alanine Aminotransferase 26 U/L (6-35); Albumin Level 4.1 g/dL (3.5-5.1); Alkaline Phosphatase 74 U/L (38-126); Amylase 83 U/L (30-110); Aspartate Amino Transferase 31 U/L (14-36); Bilirubin,Total 0.4 mg/dL (0.2-1.3); Lipase 207 U/L (23-300)
== END 2024-08-03 12:26 | disposition home or self-care (01) ==
LOC: ANHLAB 12:28
PROVIDERS: PCP Family Medicine; Visit Provider Surgery
DX: Z01.812 Encounter for preprocedural laboratory examination (principal); K80.40 Calculus of bile duct with cholecystitis, unspecified, without obstruction
CPT/HCPCS: 36415; 80076; 82150; 83690

== ENCOUNTER 2024-08-08 01:38 | Day surgery (SDC) | payer BC, SELFPAY ==
[2024-08-01 11:19] VITALS: BMI 44.6
--- NOTE | 2024-08-01 11:21 | PC.NURSE ---
Report to the Outpatient Waiting Room, entrance under the green pavilion located off [facility], at time _1000_ on date _[id number]_. Planned Procedure Time: _1200_.? Time changes happen often and if your time is changed the preop area will call you the afternoon before. - You and your visitor will be asked to self-screen and do not enter if you have any COVID symptoms. Please call surgeon if you need to reschedule. - A mask is optional within the hospital at this time. Patients may have clear liquids (water, carbonated beverages, clear teas, apple juice) until 3 hours prior to surgery with a maximum of 20 ounces. - No food from midnight until time of surgery and no smoking Take only the following medications with a SIP of water on the morning of surgery: __None DO NOT STOP ANY OF YOUR OTHER PRESCRIPTION MEDICATIONS PRIOR TO SURGERY EXCEPT THE FOLLOWING Medications to discontinue per physician All vitamins Date to take last mwph____[phone] Please no make-up, nail malay, hairspray, perfume, deodorant, or body powder the day of surgery.? No jewelry (including any body piercings) or valuables the day of surgery, leave them at home.? Please take a shower or bath the night before, or the morning of, surgery with an antibacterial soap.? Wear comfortable, loose fitting clothing.? - Jewelry must be removed prior to entering the operating room.? Rings and piercings that are not removed may be cut off. - The hospital will not accept responsibility for valuables.? - Please leave all valuables, including medications, at home the day of surgery. If you are going home after surgery, a licensed chuck wagon driver must drive you home.? - NO public transportation without another adult if you receive anesthesia. - We recommend that an adult stay with you for 24 hours following discharge. - We also recommend that you do not drive, make important decision, drink alcoholic beverages, or take any drugs that were not prescribed by your health care provider for at least 24 hours after your discharge time. Follow any additional instructions given to you from your surgeon. Telephone instructions given to __Aristeo__and asked if any additional questions and then verbalized understanding. Patient advised to call surgeon office or pre surgery nurse liaison [phone] if any additional questions.
--- NOTE | 2024-08-07 12:45 | WPDANESEPP ---
Anes - Eval Pre Procedure Procedure: Operation Date: 08/08/24 12:00 Proposed Procedures p Laparoscopic Cholecystectomy - Pina Dudley MD Date/Time: 08/07/24 12:45 Pre Op Diagnosis: Acute Cholecytitis with Stones Patient Data Age: 53 Gender: F Height: 1.65 m Weight: 121.8 kg Allergies Allergy/AdvReac Type Severity Reaction Status Date / Time semaglutide AdvReac Severe pancreatiti Verified 08/01/24 11:10 s Home Medications Medication Instructions Recorded Confirmed Type multivitamin 1 tablet PO DAILY 12/03/21 08/01/24 History blood sugar diagnostic (Compass-EOSTouch #100 ea 09/07/23 08/01/24 Rx Verio test strips) lisinopril 30 mg tablet 30 mg PO DAILY #90 tabs 10/06/23 08/01/24 Rx lancets 33 gauge (OneTouch Delica #100 ea 10/31/23 08/01/24 Rx Plus Lancet) estradiol 1 mg tablet 0.5 mg PO DAILY #1 tablet 02/10/24 08/01/24 Rx hydrochlorothiazide 25 mg tablet 25 mg PO DAILY 07/16/24 08/01/24 History metronidazole 500 mg tablet 500 mg PO Q8HR #80 tabs 07/19/24 08/01/24 Rx calcium 600 mg capsule 1,200 mg PO DAILY 08/01/24 08/01/24 History cholecalciferol (vitamin D3) 125 125 mcg PO DAILY 08/01/24 08/01/24 History mcg (5,000 unit) tablet (Vitamin D3) ECG: NSR Results Review: All pre-operative results and documents have been reviewed as part of the pre-operative evaluation. [facility] Past Medical History Medical History Acute calculous cholecystitis Choledocholithiasis with cholecystitis Controlled diabetes mellitus type II without complication Degenerative joint disease of left hip Diabetes mellitus out of control Elevated LFTs Essential (primary) hypertension Fibroid Gallstone pancreatitis Hypertension Left hip pain Lumbar disc disease Morbid obesity with BMI of 40.0-44.9, adult Obesity Pure hyperglyceridemia Surgical History Surgical History History of lithotripsy History of lumbar fusion s/p L4-S1 fusion/fixation History of partial hysterectomy Family History Family History Unknown Hypertension Mom Cardiovascular disease Mom Diabetes mellitus grandparents, aunts HLD (hyperlipidemia) MOM Father Chronic leukemia Social History Social History Social History: Smoking status: Never smoker Second hand tobacco smoke exposure: No Alcohol intake: never Alcohol use details: Rarely Substance use: never Substance use type: does not use Do You Feel Safe in your Home?: Yes Lack of Transportation: No Lack of Food: Never True Current Housing: I Have Housing Concerned About Future Housing: No Difficulty Paying Gas/Electric Bills: No Difficulty Paying for Meds: No Currently Unemployed: No Education: Master's Degree or Higher Difficulty w/ Childcare or Family Care: No Living arrangements: with family Occupation/Education: occupation Gender identity (if verbalized by the patient): Female Sexual Orientation (if Verbalized by the Patient): Straight or Heterosexual Spiritual care concerns: No Exam Day of Procedure 08/07/24 12:45
[2024-08-08] VITALS (10 sets, daily range): BP systolic 119–151; BP diastolic 76–97; PULSE 77–97; RESP 14–20; TEMP 36.7–37.1; O2SAT 95–100
--- NOTE | 2024-08-08 10:13 | WPDANESEPP ---
Anes - Eval Pre Procedure Procedure: Operation Date: 08/08/24 12:00 Proposed Procedures p Laparoscopic Cholecystectomy - Pina Dudley MD Date/Time: 08/08/24 10:14 Pre Op Diagnosis: Acute Cholecytitis with Stones Patient Data Age: 53 Gender: F Height: 1.65 m Weight: 121.8 kg Allergies Allergy/AdvReac Type Severity Reaction Status Date / Time semaglutide AdvReac Severe pancreatiti Verified 08/01/24 11:10 s Home Medications Medication Instructions Recorded Confirmed Type multivitamin 1 tablet PO DAILY 12/03/21 08/01/24 History blood sugar diagnostic ([employer] #100 ea 09/07/23 08/01/24 Rx Verio test strips) lisinopril 30 mg tablet 30 mg PO DAILY #90 tabs 10/06/23 08/01/24 Rx lancets 33 gauge (OneTouch Delica #100 ea 10/31/23 08/01/24 Rx Plus Lancet) estradiol 1 mg tablet 0.5 mg PO DAILY #1 tablet 02/10/24 08/01/24 Rx hydrochlorothiazide 25 mg tablet 25 mg PO DAILY 07/16/24 08/01/24 History metronidazole 500 mg tablet 500 mg PO Q8HR #80 tabs 07/19/24 08/01/24 Rx calcium 600 mg capsule 1,200 mg PO DAILY 08/01/24 08/01/24 History cholecalciferol (vitamin D3) 125 125 mcg PO DAILY 08/01/24 08/01/24 History mcg (5,000 unit) tablet (Vitamin D3) Patient hx anesthesia problems: none Family hx anesthesia problems: none Results Review: All pre-operative results and documents have been reviewed as part of the pre-operative evaluation. [facility] Past Medical History Medical History Acute calculous cholecystitis Choledocholithiasis with cholecystitis Controlled diabetes mellitus type II without complication Degenerative joint disease of left hip Diabetes mellitus out of control Elevated LFTs Essential (primary) hypertension Fibroid Gallstone pancreatitis Hypertension Left hip pain Lumbar disc disease Morbid obesity with BMI of 40.0-44.9, adult Obesity Pure hyperglyceridemia Surgical History Surgical History History of lithotripsy History of lumbar fusion s/p L4-S1 fusion/fixation History of partial hysterectomy Family History Family History Unknown Hypertension Mom Cardiovascular disease Mom Diabetes mellitus grandparents, aunts HLD (hyperlipidemia) MOM Father Chronic leukemia Social History Social History Social History: Smoking status: Never smoker Second hand tobacco smoke exposure: No Alcohol intake: never Alcohol use details: Rarely Substance use: never Substance use type: does not use Do You Feel Safe in your Home?: Yes Lack of Transportation: No Lack of Food: Never True Current Housing: I Have Housing Concerned About Future Housing: No Difficulty Paying Gas/Electric Bills: No Difficulty Paying for Meds: No Currently Unemployed: No Education: Master's Degree or Higher Difficulty w/ Childcare or Family Care: No Living arrangements: with family Occupation/Education: occupation Gender identity (if verbalized by the patient): Female Sexual Orientation (if Verbalized by the Patient): Straight or Heterosexual Spiritual care concerns: No Exam Day of Procedure 08/08/24 10:14 Patient weight: morbidly obese
--- NOTE | 2024-08-08 10:19 | WPDHPUPDATE1 ---
History and Physical Update Update Date/Time: 08/08/24 10:19 History and Physical has been reviewed, including an updated exam of the patient. There are NO changes in the patient's condition. Risks, benefits, and alternatives have been discussed and questions answered. Patient agrees to proceed with procedure.
[2024-08-08] MEDS: ACETAMINOPHEN 500 MG TABLET 1000 MG PO (10:57)
--- NOTE | 2024-08-08 10:58 | WPDANESEPPF ---
Anes - Initial Pre Proc Eval Procedure: Operation Date: 08/08/24 12:00 Proposed Procedures p Laparoscopic Cholecystectomy - Pina Dudley MD Date/Time: 08/08/24 10:58 Surgeon: Pina Dudley MD Pre Op Diagnosis: Acute Cholecytitis with Stones Patient Data Age: 53 Gender: F Height: 1.65 m Weight: 123 kg Last Vital Signs Temp 37.1 C 08/08/24 10:30 Pulse 89 08/08/24 10:30 Resp 20 08/08/24 10:30 BP 119/76 08/08/24 10:30 Pulse Ox 98 08/08/24 10:30 O2 Del Method Room Air 08/08/24 10:30 Allergies Allergy/AdvReac Type Severity Reaction Status Date / Time semaglutide AdvReac Severe pancreatiti Verified 08/01/24 11:10 s Home Medications Medication Instructions Recorded Confirmed Type multivitamin 1 tablet PO DAILY 12/03/21 08/08/24 History blood sugar diagnostic ([employer]ouch #100 ea 09/07/23 08/01/24 Rx Verio test strips) lisinopril 30 mg tablet 30 mg PO DAILY #90 tabs 10/06/23 08/08/24 Rx lancets 33 gauge (OneTouch Delica #100 ea 10/31/23 08/01/24 Rx Plus Lancet) estradiol 1 mg tablet 0.5 mg PO DAILY #1 tablet 02/10/24 08/08/24 Rx hydrochlorothiazide 25 mg tablet 25 mg PO DAILY 07/16/24 08/08/24 History metronidazole 500 mg tablet 500 mg PO Q8HR #80 tabs 07/19/24 08/08/24 Rx calcium 600 mg capsule 1,200 mg PO DAILY 08/01/24 08/08/24 History cholecalciferol (vitamin D3) 125 125 mcg PO DAILY 08/01/24 08/08/24 History mcg (5,000 unit) tablet (Vitamin D3) Patient hx anesthesia problems: none Family hx anesthesia problems: none Results Review: All pre-operative results and documents have been reviewed as part of the pre-operative evaluation. [facility] Past Medical History Medical History Acute calculous cholecystitis Choledocholithiasis with cholecystitis Controlled diabetes mellitus type II without complication Degenerative joint disease of left hip Diabetes mellitus out of control Elevated LFTs Essential (primary) hypertension Fibroid Gallstone pancreatitis Hypertension Left hip pain Lumbar disc disease Morbid obesity with BMI of 40.0-44.9, adult Obesity Pure hyperglyceridemia Surgical History Surgical History History of lithotripsy History of lumbar fusion s/p L4-S1 fusion/fixation History of partial hysterectomy Family History Family History Unknown Hypertension Mom Cardiovascular disease Mom Diabetes mellitus grandparents, aunts HLD (hyperlipidemia) MOM Father Chronic leukemia Social History Social History Social History: Smoking status: Never smoker Second hand tobacco smoke exposure: No Alcohol intake: never Alcohol use details: Rarely Substance use: never Substance use type: does not use Do You Feel Safe in your Home?: Yes Lack of Transportation: No Lack of Food: Never True Current Housing: I Have Housing Concerned About Future Housing: No Difficulty Paying Gas/Electric Bills: No Difficulty Paying for Meds: No Currently Unemployed: No Education: Master's Degree or Higher Difficulty w/ Childcare or Family Care: No Living arrangements: with family Occupation/Education: occupation Gender identity (if verbalized by the patient): Female Sexual Orientation (if Verbalized by the Patient): Straight or Heterosexual Spiritual care concerns: No Anes - Eval Final PreProcedure Day of Procedure 08/08/24 10:58 Patient weight: morbidly obese Heart: regular rate and rhythm Lungs: clear to auscultation Airway: Mallampati scale class II Neurological: alert and oriented Last oral intake: >/= 8 hours ASA classification: III Emergent: no Anesthetic plan: proceed Anesthesia type and monitoring: general ETT and standard monitoring Resul
[2024-08-08] MEDS: LACTATED RINGERS 1,000 ML 30 ML IV CONT ×2 (11:05→13:16)
[2024-08-08] MEDS: KETOROLAC 15 MG/ML VIAL (*BKC) IV PUSH (11:07)
[2024-08-08] MEDS: ceFAZolin 3 GM/D5W 100 ML 100 ML IVPB (12:00)
[2024-08-08] MEDS: BUPIVACAINE/EPINEPHRINE 0.5% 50 ML VIAL 30 ML INFILTRATE (12:32)
--- NOTE | 2024-08-08 13:10 | P.OP_ITS ---
Procedure Note - Detailed Date of Procedure 08/08/24 Pre-op Diagnosis acute cholecystitis, cholelithiasis Post-op Diagnosis Same Procedure Performed Laparoscopic cholecystectomy Surgeon Pina Dudley MD Anesthesia General Indications 53-year-old female presented to the hospital for cholecystitis, choledocholit hiasis. Pt now setup for interval cholecystectomy. Findings Cholecystitis with cholelithiasis Description of Procedure The patient was taken to the operating room placed in the supine position. After adequate induction of general anesthesia, the patient was prepped and draped in normal sterile fashion. A time-out was then performed to verify the patient's identity as well as the procedure being performed. I then made a 5 mm incision in the infraumbilical region. Through this, a Veress needle was placed into the peritoneal cavity and CO2 gas was then insufflated. After adequate pneumoperitoneum was achieved, the Veress needle was removed and a 5 mm optiview trocar was placed through this incision under direct visualization. I then placed the laparoscope through this trocar site and under direct visualization placed a further 12 mm subxiphoid port as well as 2 additional 5 mm ports in the right upper abdomen. The gallbladder was then identified and was noted to be inflamed and distended. I was able to place a grasper at the dome of the gallbladder and this was retracted anterior and cephalad up over the liver. A 2nd retractor was then placed at the infundibulum and retracted laterally, this allowed visualization of the triangle of Calot. I then was able to visualize the cystic duct in its entirety from its proximal insertion into the gallbladder, to its distal junction with the common hepatic/common bile duct junction. At this point, I carefully skeletonized the proximal cystic duct with the [place] dissector. I then clipped and transected the proximal cystic duct. Next I visualized the cystic artery. Again the artery was skeletonized, clipped, and transected. I then used the Bovie cautery to take down the peritoneal attachments of the gallbladder off the liver bed. This was somewhat difficult given the amount of inflammation in the posterior space. Once the gallbladder specimen was completely detached, an endo-pouch was placed through the 12 mm port site. I then placed the gallbladder specimen into the Endo pouch and removed the endo-pouch from the 12 mm port site. The specimen will now be sent to pathology for further review. I then copiously irrigated the right upper quadrant. Some mild oozing was noted in the liver bed and this was co ntrolled with the bovie cautery. Hemostasis was noted in the liver bed, the clips were noted to be in good position on both the cystic duct stump and the cystic artery stump. No other pathology was noted in the right upper quadrant. I then moved the laparoscope to the subxiphoid port. No iatrogenic injury or other pathology was noted in the lower abdomen. I then closed the 12 mm trocar site under direct visualization using the Jamie cone and 0 Vicryl suture. At this point, the abdomen was desufflated and all ports removed. All port sites were then closed with 4.O Monocryl subcuticular sutures. Dermabond was placed on each incision. The patient tolerated the procedure well, was extubated in the operating room postoperative and will be transferred to the recovery room in stable condition Estimated Blood Loss 10 Drains No Packing No Pathology Yes Complications No immediate complications Condition Stable Disposition PACU [facility] Billing Surgery - Charge Forward: Surgery Billing
[2024-08-08] MEDS: fentaNYL CITRATE INJ (*CRX) 100 MCG/2 ML VIAL 25 MCG IV PUSH ×4 (13:44→13:53)
[2024-08-08] MEDS: oxyCODONE HCL (*CRX) 5 MG TAB IR PO (14:32)
== END 2024-08-08 15:20 | disposition home or self-care (01) ==
PROVIDERS: PCP Family Medicine; Visit Provider Surgery
PROC: 0FT44ZZ Resection of Gallbladder, Percutaneous Endoscopic Approach (ICD-10-PCS; CPT 47562; principal; 2024-08-08 12:00)
DX: K80.10 Calculus of gallbladder with chronic cholecystitis without obstruction (principal); E11.9 Type 2 diabetes mellitus without complications; M16.12 Unilateral primary osteoarthritis, left hip; I10 Essential (primary) hypertension; E78.1 Pure hyperglyceridemia; M51.36 Other intervertebral disc degeneration, lumbar region; E66.01 Morbid (severe) obesity due to excess calories; Z68.42 Body mass index [BMI] 45.0-49.9, adult; Z98.890 Other specified postprocedural states; Z98.1 Arthrodesis status; Z80.6 Family history of leukemia; Z82.49 Family history of ischemic heart disease and other diseases of the circulatory system
CPT/HCPCS: 47562; 88304; A9270; J0690; J1100; J1170; J1885; J2250; J2405; J2704; J3010; J7120

== ENCOUNTER 2024-09-19 10:14 | Emergency (ER) | payer BC, SELFPAY ==
--- NOTE | ~2024-09-19 | XR_ITS ---
EXAMINATION: XR foot RT min 3V DATE: 09/19/2024 10:37 INDICATION: Right foot pain and swelling TECHNIQUE: Dorsoplantar, two oblique and lateral views of the right foot were obtained. COMPARISON: None. FINDINGS: Alignment is normal. No fracture. Polyarticular osteoarthritis involving multiple joints throughout t he right foot, moderate severity at the second and third tarsal metatarsal joints and otherwise mild. Moderate-sized plantar calcaneal spur. Soft tissues are unremarkable. IMPRESSION: 1. No acute osseous abnormality. 2. Chronic degenerative skeletal changes including mild to moderate polyarticular osteoarthritis most prominent at the second and third tarsal metatarsal joints and moderate sized plantar calcaneal spur . Reviewed, dictated and finalized at location A. IMPRESSION: 1. No acute osseous abnormality. 2. Chronic degenerative skeletal changes including mild to moderate polyarticul ar osteoarthritis most prominent at the second and third tarsal metatarsal join ts and moderate sized plantar calcaneal spur.
--- NOTE | 2024-09-19 10:23 | ED.LOWEXIN ---
HPI - Extremity Injury (Lower) General Chief Complaint: Extremity Problem,Nontraumatic Stated Complaint: Right Foot Pain Source: patient, RN notes reviewed and old records reviewed Mode of arrival: ambulatory Limitations: no limitations History of Present Illness HPI Narrative: 53-year-old female presents to the [facility] with right plantar foot pain. States that started Tuesday. Also reports that she started with some mild swelling to the ankle. Denies pain. Denies injury. Pain is mostly to the arch of her foot into the calcaneal plantar aspect peer No bruising or swelling noted. Related Data Home Medications Medication Instructions Recorded Confirmed multivitamin 1 tablet PO DAILY 12/03/21 08/22/24 calcium 600 mg capsule 1,200 mg PO DAILY 08/01/24 08/22/24 cholecalciferol (vitamin D3) 125 125 mcg PO DAILY 08/01/24 08/22/24 mcg (5,000 unit) tablet (Vitamin D3) Allergies Allergy/AdvReac Type Severity Reaction Status Date / Time semaglutide AdvReac Severe pancreatiti Verified 08/22/24 09:03 s Review of Systems Review of Systems: All systems reviewed & are unremarkable except as noted in HPI and below Constitutional: Constitutional: Reports no additional constitutional complaints ENT: Reports system reviewed and no additional complaints, except as documented Cardiovascular: Cardiovascular: Reports no additional cardiovascular complaints, Denies chest pain and Denies dyspnea Respiratory: Respiratory: Reports no additional respiratory complaints, Denies chest congestion, Denies cough and Denies dyspnea Gastrointestinal: Gastrointestinal: Reports no additional gastrointestinal complaints, Denies abdominal pain, Denies nausea and Denies vomiting Musculoskeletal: Musculoskeletal: Reports as per HPI Integumentary/Breasts: Skin/Breast: Reports system reviewed and no additional complaints, except as docu [facility] Past Medical History Medical History Acute calculous cholecystitis Choledocholithiasis with cholecystitis Controlled diabetes mellitus type II without complication Degenerative joint disease of left hip Diabetes mellitus out of control Elevated LFTs Essential (primary) hypertension Fibroid Gallstone pancreatitis Hypertension Left hip pain Lumbar disc disease Morbid obesity with BMI of 40.0-44.9, adult Obesity Pure hyperglyceridemia Surgical History Surgical History History of lithotripsy History of lumbar fusion s/p L4-S1 fusion/fixation History of partial hysterectomy Hx laparoscopic cholecystectomy 08/08/[address] Dudley Family History Family History Unknown Hypertension Mom Cardiovascular disease Mom Diabetes mellitus grandparents, aunts HLD (hyperlipidemia) MOM Father Chronic leukemia Social History Social History Social History: Smoking status: Never smoker Second hand tobacco smoke exposure: No Alcohol intake: never Alcohol use details: Rarely Substance use: never Substance use type: does not use Do You Feel Safe in your Home?: Yes Lack of Transportation: No Lack of Food: Never True Current Housing: I Have Housing Concerned About Future Housing: No Difficulty Paying Gas/Electric Bills: No Difficulty Paying for Meds: No Currently Unemployed: No Education: Master's Degree or Higher Difficulty w/ Childcare or Family Care: No Living arrangements: with family Occupation/Education: occupation Gender identity (if verbalized by the patient): Female Sexual Orientation (if Verbalized by the Patient): Straight or Heterosexual Spiritual care concerns: No Comments At the time of my signature, I reviewed and agree with the nursing past medical, surgical, social, and family history. There is no relevant family history pertinent to the patient complaint. Exam Const: General: cooperative, healthy appearing, comfortable, no acute distress, well developed, alert and well nourished Nutritional Appearance: well nourished and obese Orientation/consciousness: patient oriented x3 Limitations: no limitations HENMT: Head: normal to inspection Ears: hearing grossly normal bilaterally and external ears normal Face/Nose/Sinus: Normal external nose present, normal facial exam and face symmetric Face and sinus: normal facial exam and face symmetric Eyes: General: appearance normal, both eyes and all related structures Alignment and Position: alignment normal Periorbital: periorbital findings normal Neck: Neck: normal visual inspection, full ROM, no lymphadenopathy and no meningeal signs Chest: Chest palpation & inspection: normal inspection of the chest Resp: Effort & Inspection: normal respiratory effort and able to speak in complete sentences Cardio: Rate: regular rate Skin: General skin exam: normal color and no rashes or lesions noted Lesions: no lesions Rashes: no rashes Wounds: no wounds Neuro: General: patient oriented x3, gait normal, tone normal, moves all extremities and no meningeal signs Cognition (Neuro): normal cognition Speech: normal speech Gait exam (Neuro): Normal gait present Extrem: General: normal to inspection, full ROM, capillary refill normal and normal gait Right lower extremity: foot Details: tenderness Location: of the plantar foot (Arch of foot to posterior through plantar calcaneal), toes with normal ROM and no edema Psych: Appearance: grossly normal and well kempt Mental Status: mental status grossly normal Speech and movement: Normal speech and movement present and Clear speech present Affect: normal affect Attitude: cooperative Course Course Level of Care: Express Care Visit Vital Signs Vital signs: Vital Signs Temperature 98 F 09/19/24 10:24 Pulse Rate 111 H 09/19/24 10:24 Respiratory Rate 20 09/19/24 10:24 Blood Pressure 138/96 H 09/19/24 10:24 Pulse Oximetry 99 09/19/24 10:24 Oxygen Delivery Room Air 09/19/24 10:24 Temperature 98 F 09/19/24 10:24 Pulse Rate 111 H 09/19/24 10:24 Respiratory Rate 20 09/19/24 10:24 Blood Pressure 138/96 H 09/19/24 10:24 Pulse Oximetry 99 09/19/24 10:24 Oxygen Delivery Room Air 09/19/24 10:24 Reviewed MDM - Extremity Injury (Lower) MDM Narrative Medical decision making narrative: Patient sitting comfortably in exam room. Nontoxic, vitals stable. Patient presents with foot pain X-ray showed calcaneal spur exam consistent also with plantar fasciitis Discussed with patient proper shoes, she states she can not put any shoes on other than slip on Patient appropriate for outpatient treatment with follow-up, podiatry names given Discharge instructions reviewed with patient, as well as provided in writing per nursing staff. The instructions also include specific and strict return/GO TO THE ER as well as f/u information. All questions have been answered, and the patient deny any further questions with discharge and discharge plan. Some parts of this dictation were generated by voice recognition software and may contain typographical and/or grammatical inaccuracies. Differential Diagnosis Differential diagnosis: Likely other (Plantar fasciitis, contusion, plantar fasciitis, calcaneal spur) Imaging Data Radiologist's impression: EXAMINATION: XR foot RT min 3V DATE: 09/19/2024 10:37 INDICATION: Right foot pain and swelling TECHNIQUE: Dorsoplantar, two oblique and lateral views of the right foot were obtained. COMPARISON: None. FINDINGS: Alignment is normal. No fracture. Polyarticular osteoarthritis involving multiple joints throughout the right foot, moderate severity at the second and third tarsal metatarsal joints and otherwise mild. Moderate-sized plantar calcaneal spur. Soft tissues are unremarkable. IMPRESSION: 1. No acute osseous abnormality. 2. Chronic degenerative skeletal changes including mild to moderate polyarticular osteoarthritis most prominent at the second and third tarsal metatarsal joints and moderate sized plantar calcaneal spur. Critical Care Time Critical Care Time Critical Care Time: No Discharge Plan Discharge Clinical Impression: Calcaneal spur, right, Polyarticular osteoarthritis, Acute foot pain Patient Disposition: Home, Self-Care Condition: Stable Instructions: Antibiotic Form, Plantar Fasciitis (ED), Heel Spur (ED) Additional Instructions: Your Xray did not show a fracture. Wear good supportive shoes at all times. Ice should be applied to help reduce swelling. It can be used for 20 to 30 minutes, every 2-3 hours while awake. Do not apply ice directly to your skin. You can alternate ibuprofen 600mg and Tylenol 650mg every 4 hours as needed for pain Please schedule a follow-up visit with your personal physician for further evaluation and treatment within 2 weeks especially if symptoms persist. 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 For new or worsening symptoms go directly to the emergency room Patient Language: Austrian Prescriptions: No Action estradiol 1 mg tablet 0.5 mg PO DAILY Qty: 1 0RF Rx Instructions: Says takes one tablet daily multivitamin Tablet 1 tablet PO DAILY calcium 600 mg Capsule 1,200 mg PO DAILY cholecalciferol (vitamin D3) [Vitamin D3] 125 mcg (5,000 unit) Tablet 125 mcg PO DAILY (DME) OneTouch Verio test strips Strip See Rx Instructions .Route Qty: 100 3RF Rx Instructions: test daily (DME) lancets [OneTouch Delica Plus Lancet] 33 gauge misc See Rx Instructions .Route Qty: 100 11RF Rx Instructions: As directed to test blood sugar daily lisinopril 30 mg tablet 30 mg PO DAILY Qty: 90 2RF hydrochlorothiazide 25 mg tablet 25 mg PO DAILY Qty: 90 0RF Follow-up/Referrals: Rene Austin MD [Primary Care Provider] - 1 Week (express care follow up) Mykel Rothman Jr., DAWNA [Physician] - Elijah Thompson DPM [Physician] - Stand Alone Forms: Work/School Release IP Time of Disposition: 10:50
[2024-09-19 10:24] VITALS: BP 138/96; PULSE 111; RESP 20; TEMP 36.6; O2SAT 99
== END 2024-09-19 10:55 | disposition home or self-care (01) ==
PROVIDERS: Emergency Provider Nurse Practitioner; PCP Family Medicine
DX: M77.31 Calcaneal spur, right foot (principal); M19.071 Primary osteoarthritis, right ankle and foot; E11.9 Type 2 diabetes mellitus without complications; M16.12 Unilateral primary osteoarthritis, left hip; I10 Essential (primary) hypertension; E66.01 Morbid (severe) obesity due to excess calories; E78.1 Pure hyperglyceridemia; Z90.712 Acquired absence of cervix with remaining uterus
CPT/HCPCS: 73630; 99213; G0463

== ENCOUNTER 2024-12-10 14:23 | Outpatient (CLI) | payer BC, SELFPAY ==
--- NOTE | ~2024-12-10 | XR_ITS ---
EXAMINATION: XR hip LT 2V w AP pelvis DATE: 12/10/2024 14:44 INDICATION: Left hip pain TECHNIQUE: Anteroposterior view of the pelvis and anteroposterior and frog-leg lateral views of the l eft hip were obtained. COMPARISON: CT dated 07/16/2024 FINDINGS: Bone alignment is normal. No fracture. Again seen is severe osteoarthritis at the left hip with lanny ening of the articular cortex and underlying subarticular cystlike changes at the cephalad aspect of the left femoral head. There are moderate to large marginal osteophytes along the left femoral head m ost prominent inferiorly. Mild osteoarthritis at the right hip. Moderate osteoarthritis of the bilate ral sacral iliac joints. Postoperative changes in the lower lumbar spine with interbody fusion device s and anterior plate and screw fixations at L4-L5 and L5-S1. There is also posterior spinal fusion wi th right-sided vertical latosha and pedicle screw fixation at L4-S1. There are several surgical clips pro jecting along the left side of the lumbosacral junction. IMPRESSION: 1. Severe left hip osteoarthritis. Reviewed, dictated and finalized at location A. [employer]
--- NOTE | ~2024-12-10 | XR_ITS ---
EXAMINATION:XR_[id number]_CR DATE: 12/10/2024 14:44 INDICATION: Neck pain TECHNIQUE: AP, lateral, lateral swimmers and odontoid views of the cervical spine are provided. COMPARISON: None FINDINGS: Straightening of the normal cervical lordosis. No spondylolisthesis or facet subluxation. Odontoid is intact. Normal atlantoaxial interval. Vertebral body heights are normal. Disc heights are normal. S mall anterior endplate osteophytes at a few levels at the inferior endplates of C4-C6. Multilevel mil d cervical uncovertebral osteoarthritis and mild to moderate facet osteoarthritis. Prevertebral soft tissues are normal. IMPRESSION: 1. Multilevel mild cervical uncovertebral and mild to moderate facet osteoarthritis. Reviewed, dictated and finalized at location A. COMMANDER IMPRESSION: 1. Multilevel mild cervical uncovertebral and mild to moderate facet osteoarthr itis.
== END 2024-12-10 14:24 | disposition home or self-care (01) ==
LOC: MICIMG 14:25
PROVIDERS: PCP Family Medicine; Visit Provider Family Medicine
DX: M46.92 Unspecified inflammatory spondylopathy, cervical region (principal); M16.12 Unilateral primary osteoarthritis, left hip
CPT/HCPCS: 72040; 73502

== ENCOUNTER 2025-02-04 13:36 | Outpatient (CLI) | payer BC, SELFPAY ==
--- NOTE | ~2025-02-04 | XR_ITS ---
EXAMINATION: XR lg joint inject/asp w image DATE: 02/04/2025 14:58 INDICATION: Left hip arthritis TECHNIQUE: A time-out was performed to verify the patient's name, date of , and procedure to b e performed. The procedure including the risks, benefits, and alternatives was discussed with the pat ient. Risks discussed included bleeding and infection. The patient understood the risks and agreed to proceed. The skin overlying the left hip joint was prepped and draped in usual sterile fashion. An esthetic was administered with 1% lidocaine subcutaneously. A 22 G needle was advanced under fluoros copic guidance into the joint. Injection of 1 mL of Omnipaque 240 confirmed intra-articular position of the needle. Subsequently, injectate consisting of 12 mL of 2:1:1 mixture of sterile saline:Omnip aque 240:1% lidocaine mixed 200:1 with 529 mg/mL Multihance gadolinium contrast was instilled. [place] of contrast was seen confirming intra-articular administration. The needle was removed and the ent ry site was cleaned and dressed. There were no immediate complications. Fluoroscopy exposure time wa s 0.2 minutes. The total number of images was 2. Total DAP was 4 Gycm^2 FINDINGS: Real-time fluoroscopy demonstrates the needle in the left hip joint. Patient's pain prior t o procedure:5/10. Patient's pain following the procedure: 2. IMPRESSION: 1. Successful left hip joint injection of local anesthetic and steroid with decrease in the patient's presenting pain. Reviewed, dictated and finalized at location A. IMPRESSION: 1. Successful left hip joint injection of local anesthetic and steroid with dec rease in the patient's presenting pain.
--- OUTSIDE RECORDS SUMMARY | 2025-02-04 16:10 | XMS_ITS | Clinical Summary ---
Author Organization [facility] [employer] Address [address] [place] [address] Care Team Providers Care Therapeutic Strategy Lead Name Role Phone Rene Austin MD Primary Care Provider [phone] [facility] [employer],non-owned Affiliates and Associated Physician Practices is amultiple site organization consisting of ambulatory clinics and hospital sitesin [place], [place], [place] and [place]. This disclosure is being madepursuant to the Care Everywhere program and may not contain all information available regarding this patient. Last updated 18.[facility] [employer] Social History Tobacco Use Types Packs/Day Years Used Date Smoking Tobacco: Never Assessed Sex and Gender Information Value Date Recorded Sex Assigned at Not on file Gender Identity Not on file Sexual Orientation Not on file Plan of Treatment Health Maintenance Due Date Last Done Comments COLOGUARD (AGES 45-75) - COL ON CA SCREENING 1972 COLON MONITORING 1972 COLONOSCOPY - COLON CA SCREENING 1972 CT COLONOGRAPHY - COLON CA SCREENING 1972 Colorectal Cancer Screening 1972 FIT - COLON CA SCREENING 1972 FLEX SIG - COLON CA SCREENING 1972 LIPID TESTING 1972 MAMMOGRAM 1972 PAP SMEAR 1972 HIV SCREENING 1987 HEPATITIS C SCREENING 10/31/1990 DTAP/TDAP/TD VACCINES (1 - Tdap) 1991 HEPATITIS B VACCINE (1 of 3 - 19+ 3-dose series) 1991 PNEUMOCOCCAL VACCINE 50+ (1 of 1 - PCV) 2022 ZOSTER VACCINE (1 of 2) 2022 COVID-19 VACCINE ( - 2023-2 5 season) 2024 INFLUENZA VACCINE (#1) 2024 DEPRESSION SCREENING 11/21/2024 HIB VACCINE Aged Out No longer eligi ble based on patient's age to complete this topic HPV VACCINE Aged Out No longer eligi ble based on patient's age to complete this topic MENINGOCOCCAL (Group B) VACC INE SHARED DECISION-MAKING Aged Out No longer eligibl e based on patient's age to complete this topic MENINGOCOCCAL GROUPS A/C/Y/W VACCINE Aged Out No longer eligible b ased on patient's age to complete this topic Care Teams Therapeutic Strategy Lead Relationship Specialty Start Date End Date Rene Austin MD [address] [place] [address] PCP - General 05/05/18
--- OUTSIDE RECORDS SUMMARY | 2025-02-04 16:10 | XMS_ITS | Encounter Summary ---
Author Organization [facility] Address [address] [place] [address] Care Team Providers Care Wired Music Operator Name Role Phone Rene Austin MD Primary Care Provider [phone] Encounter Details Date Type Department Care Team (Late st Contact Info) Description 05/20/2022 Lab Requisition [facility] DermPath Lab [address] [place] [address] Davin Ornelas MD [address] [place] [address] Social History Tobacco Use Types Packs/Day Years Used Date Smoking Tobacco: Never Assessed Sex and Gender Information Value Date Recorded Sex Assigned at Not on file Gender Identity Not on file Sexual Orientation Not on file documented as of this encounter Plan of Treatment Not on file documented as of this encounter Procedures Procedure Name Priority Date/Time Associated Diagnosis Comments DERMATOPATHOLOGY Routine 05/19/2022 12:0 0 AM CDT documented in this encounter Results * DERMATOPATHOLOGY (05/19/2022 12:00 AM CDT) Case Report Dermatopathology Report Case: [id number] Authorizing Provider: Davin Ornelas MD Collected: 05/19/2022 12:00 AM Ordering Location: [facility] DermPath Lab Received: 05/20/2022 12:00 PM Pathologist: Ja Steen MD Specimen: Skin, right lower back 2 5:43 PM CDT DERMATOPATHOLOGY LABORATORY Final Diagnosis Specimen A. 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 2 5:43 PM CDT DERMATOPATHOLOGY LABORATORY Gross Description Specimen A: Received is one formalin filled container labeled with the patient's name and designated right lower back. The specimen consists of a shave biopsy measuring [id number], bisected. Jar 0. 2 5:43 PM CDT DERMATOPATHOLOGY LABORATORY Microscopic Description Specimen A. SKIN, right lower back: This dome-shaped lesion contains dilated blood vessels, coarse collagen bundles, and stellate fibroblasts. 2 5:43 PM CDT DERMATOPATHOLOGY LABORATORY Disclaimer An external and internal positive and negative controls are appropriate for the histochemical, immunohistochemical and immunofluorescence stain(s) in this case (if any), except where stated explicitly. The performance characteristics of the stain(s) cited in this report were developed and its performance characteristic determined by the Dermatopathology Laboratory at [facility], directed by Dr. Jenny Steen. These tests need not be, and therefore are not, approved by the [place] Food and Drug Administration. The tests are used for clinical purposes. Billing Codes Specimen Charges Stain Charges 24713 1 2 5:43 PM CDT DERMATOPATHOLOGY LABORATORY Embedded Images 2 5:43 PM CDT DERMATOPATHOLOGY LABORATORY Pathology/Cytolog y TISSUE SPECIMEN FROM SKIN / Unknown 05/19/2022 05/20/2022 12:00 PM CDT Davin Ornelas MD LAB - PATHOLOGY/CYTO LOGY ORDERABLES DERMATOPATHOLOGY LABORATORY [facility] - Department of Dermatology [facility] Medicine [address] [place] [address], [address] [phone] documented in this encounter Visit Diagnoses Not on filedocumented in this encounter Care Teams Wired Music Operator Relationship Specialty Start Date End Date Rene Austin MD [address] [place] [address] PCP - General 05/05/18 documented as of this encounter
--- OUTSIDE RECORDS SUMMARY | 2025-02-04 16:10 | XMS_ITS | Referral Summary ---
Author Organization [facility] Address [address] [address] Care Team Providers Care Internal Grinder Tender Name Role Phone Rene Austin MD Primary Care Provider [phone] Source Comments [facility],non-owned Affiliates and Associated Physician Practices is amultiple site organization consisting of ambulatory clinics and hospital sitesin [place], [place], [place] and [place]. This disclosure is being madepursuant to the Care Everywhere program and may not contain all information available regarding this patient. Last updated 18.[facility] [employer] Social History Tobacco Use Types Packs/Day Years Used Date Smoking Tobacco: Never Assessed Sex and Gender Information Value Date Recorded Sex Assigned at Not on file Gender Identity Not on file Sexual Orientation Not on file Plan of Treatment Not on file Care Teams Internal Grinder Tender Relationship Specialty Start Date End Date Rene Austin MD [address] [place] [address] PCP - General 05/05/18
--- OUTSIDE RECORDS SUMMARY | 2025-02-04 16:10 | XMS_ITS | Encounter Summary ---
Author Organization [facility] Address [address] [place] [id number] Care Team Providers Care Mailing Machine Assistant Name Role Phone Rene Austin MD Primary Care Provider [phone] Encounter Details Date Type Department Care Team (Late st Contact Info) Description 11/10/2021 Prep for Procedure [facility] Pre-Admission Testing [place], [place] [phone] Junior Padilla MD [address] [place], [place] [id number] Social History Tobacco Use Types Packs/Day Years Used Date Smoking Tobacco: Never Smokeless Tobacco: Never Alcohol Use Standard Drinks/Week Comments Not Currently 0 (1 standard drink = 0.6 oz pur e alcohol) Comments No Sex and Gender Information Value Date Recorded Sex Assigned at Not on file Legal Sex Female 4:14 PM CDT Gender Identity Female 11/16/2021 1:53 PM TUBE CLEANER Sexual Orientation Straight 11/16/2021 1: 53 PM TUBE CLEANER COVID-19 Exposure Response Date Recorded In the last month, have you been in contact with someone who was confirmed or suspected to have Coronavirus / COVID-19? No / Unsure 11/10/2021 9:56 AM TUBE CLEANER documented as of this encounter Functional Status * RETIRED Are you deaf or do you have serious difficulty hearing Answer Date of Assessment Author Status No 10/23/2021 6:10 PM TUBE CLEANER Activ e * RETIRED Are you blind or do you have serious difficulty seeing, even when wearing glasses? Answer Date of Assessment Author Status No 10/23/2021 6:10 PM TUBE CLEANER Activ e * Do you have serious difficulty walking or climbing stairs? Answer Date of Assessment Author Status No 10/23/2021 6:10 PM Latanya Manzanares RN Active * Do you have difficulty dressing or bathing? Answer Date of Assessment Author Status No 10/23/2021 6:10 PM Latanya Manzanares RN Active * Because of a physical, mental, or emotional condition, do you have difficulty doing errands alone such as visiting a doctor's office or shopping? Answer Date of Assessment Author Status No 10/23/2021 6:10 PM Latanya Manzanares RN Active documented as of this encounter Mental Status * Because of a physical, mental, or emotional condition, do you have serious difficulty concentrating, remembering, or making decisions? Answer Entry Date Author Status No 10/23/2021 6:10 PM Latanya Manzanares RN Active documented in this encounter Plan of Treatment Not on file documented as of this encounter Results * CULTURE URINE (11/16/2021 8:10 AM TUBE CLEANER) SPEC DESCRIPTION URINE CLEAN CATCH 11/16/2021 7:54 AM [facility] SPECIAL REQUESTS NO SPECIAL REQUEST 11/16/2021 7:54 AM [facility] CULTURE RESULT POLYMICROBIAL GROWTH CONSISTENT WITH NORMAL GENITAL MANOJ. SUSCEPTIBILITIES NOT ROUTINELY PERFORMED. 11/17/2021 8:58 AM [facility] URINE SPECIMEN OBTAINED BY CLEAN CATCH PROCEDURE / Unknown 11/16/2021 8:10 AM TUBE CLEANER 11/16/2021 8:11 AM TUBE CLEANER us Junior Padilla MD MICROBIOLOGY - GENER AL ORDERABLES Final Result [facility] [address] [facility] [place] [address], documented in this encounter Visit Diagnoses Diagnosis Pre-op exam- Primary Preoperative examination, unspecified documented in this encounter Care Teams Mailing Machine Assistant Relationship Specialty Start Date End Date Rene Austin MD [address] [place] [address] PCP - General FAMILY PRACTICE 10/23/21 documented as of this encounter
--- OUTSIDE RECORDS SUMMARY | 2025-02-04 16:11 | XMS_ITS | Patient Health Summary ---
Author Organization [facility] Address [address] [facility] [address] [place] [address] Care Team Providers Care Early Intervention Specialist Name Role Phone Rene Autsin MD Primary Care Provider [phone] Note from [facility],non-owned Affiliates and Associated Physician Practices is amultiple site organization consisting of ambulatory clinics and hospital sitesin [place], [place], [place] and [place]. This disclosure is being madepursuant to the Care Everywhere program and may not contain all information available regarding this patient. Last updated 18.[facility] Social History Tobacco Use Types Packs/Day Years Used Date Smoking Tobacco: Never Assessed Sex and Gender Information Value Date Recorded Sex Assigned at Not on file Gender Identity Not on file Sexual Orientation Not on file Procedures * DERMATOPATHOLOGY(Performed 05/19/2022) Results * DERMATOPATHOLOGY (05/19/2022 12:00 AM CDT) Case Report Dermatopathology Report Case: [id number] Authorizing Provider: Davin Ornelas MD Collected: 05/19/2022 12:00 AM Ordering Location: [facility] DermPath Lab Received: 05/20/2022 12:00 [...] specimen consists of a shave biopsy measuring [id number], bisected. Jar 0. 2 5:43 PM CDT [...] characteristic determined by the Dermatopathology Laboratory at [facility], directed by Dr. Jenny Steen. These tests need not be, and therefore are not, approved by the [place] Food and Drug Administration. The tests are used for clinical purposes. Billing Codes Specimen Charges Stain Charges 23195 1 2 5:43 PM CDT DERMATOPATHOLOGY LABORATORY Embedded Images 2 5:43 PM CDT DERMATOPATHOLOGY LABORATORY Pathology/Cytolog y TISSUE SPECIMEN FROM SKIN / Unknown 05/19/2022 05/20/2022 12:00 PM CDT Davin Ornelas MD LAB - PATHOLOGY/CYTO LOGY ORDERABLES DERMATOPATHOLOGY LABORATORY [facility] - Department of Dermatology [facility] Specialized Medicine [address] [place] [address], [address] [phone] Care Teams Early Intervention Specialist Relationship Specialty Start Date End Date Rene Austin MD [address] [place] [address] PCP - General 05/05/18
--- OUTSIDE RECORDS SUMMARY | 2025-02-04 16:11 | XMS_ITS | Clinical Summary ---
Author Organization [facility] Address [address] [place] [address] Care Team Providers Care After School Program Assistant Name Role Phone Rene Austin MD Primary Care Provider [phone] Allergies Active Allergy Reactions Criticality Noted Date Comments Niacin Itching,Atopic Dermatitis 05/16/2023 Medications lisinopril 30 MG tabletIndicatio ns:Hypertension Take 1 tablet (30 mg total) by mouth daily. Indications: High Blood Pressure 1 Active hydroCHLOROthia zide (HYDRODIURIL) 25 MG tabletIndicatio ns:Hypertension Take 1 tablet (25 mg total) by mouth daily. Indications: High Blood Pressure 2 Active Multiple Vitamins-Minera ls (MULTIVITAMIN ADULT EXTRA C OR)Indications: Vitamin Deficiency multivitamin Active BONE STIMULATOR, DME,Indications :Lumbar spine instability Wear 4 hours daily. Can break up into multiple sessions totaling 4 hours. 1 Device 3 Active estradiol (ESTRACE) 1 MG tablet TAKE 1 TABLET BY MOUTH ONCE DAILY WITH MEALS FOR 90 DAYS Active BONE STIMULATOR, DME,Indications :S/P lumbar fusion Wear 4 hours daily. Can break up into multiple sessions totaling 4 hours. 1 Device 4 Active calcium carb-cholecalci ferol (CALTRATE 600+D) 600-20 MG-MCG tablet Take 2 tablets by mouth daily. Active Vitamin D3 125 mcg Tab Take 1 tablet (125 mcg total) by mouth daily. Active Acetaminophen (TYLENOL 8 HOUR ARTHRITIS PAIN OR) Active Active Problems Problem Noted Date Diagnosed Date Class 3 severe obesity with serious comorbidity and body mass index (BMI) of 45.0 to 49.9 in adult, unspecified obesity type 10/11/2024 Numbness and tingling of both upper extremities 10/24/2023 S/P lumbar fusion 05/16/2023 Spondylolisthesis of lumbar region 09/17/2022 Lumbar radiculopathy 09/17/2022 Sacroiliitis 09/17/2022 Foraminal stenosis of lumbar region 09/17/2022 Kidney stone 10/23/2021 Resolved Problems Problem Noted Date Diagnosed Date Resolved Date Spondylolisthesis of cervical region 10/24/2023 02/16/2024 Acute midline thoracic back pain 10/24/2023 11/09/2023 Lumbar spine instability 05/16/2023 Spinal instability of lumbar region 05/16/2023 11/09/2023 Other intervertebral disc di splacement, lumbar region 10/01/2022 11/09/2023 Facet hypertrophy of lumbar region 10/01/2022 11/09/2023 Spinal stenosis of lumbar re gion without neurogenic claudication 09/17/2022 02/16/2024 Degenerative disc disease, lumbar 09/17/2022 11/09/2023 Sepsis ([facility] 10/23/2021 Encounters Date Type Department Care Team Description 11/07/2024 Scan [facility] Scanned, Doc Med Group from Last 3 Months Family History Medical History Relation Comments Diabetes Brother 3 Hypertension Brother 3 Cancer Father chronic leukemia Hypertension Father Diabetes Mother Hypertension Mother Relation Status Comments Brother 1 Alive Brother 2 Alive Brother 3 Alive Brother 4 Alive Daughter Alive Father Mother Alive Social History Tobacco Use Types Packs/Day Years Used Date Smoking Tobacco: Never Smokeless Tobacco: Never Alcohol Use Standard Drinks/Week Comments Not Currently 0 (1 standard drink = 0.6 oz pur e alcohol) Humiliation, Afraid, Rape, and Kick questionnair e Answer Date Recorded Within the last year, have y ou been afraid of your partner or ex-partner? Patient declined 05/16/2023 Within the last year, have y ou been humiliated or emotionally abused in other ways by your partner or ex-partner? Patient declined 05/16/2023 Within the last year, have y ou been kicked, hit, slapped, or otherwise physically hurt by your partner or ex-partner? Patient declined 05/16/2023 Within the last year, have y ou been raped or forced to have any kind of sexual activity by your partner or ex-partner? Patient declined 05/16/2023 Overall Financial Resource Strain (CARDIA) Answe r Date Recorded How hard is it for you to pa y for the very basics like food, housing, medical care, and heating? Patient declined 05/16/2023 Hunger Vital Sign Answer Date Recorded Within the past 12 months, y ou worried that your food would run out before you got the money to buy more. Patient declined Within the past 12 months, t he food you bought just didn't last and you didn't have money to get more. Patient declined PRAPARE - Transportation Answer Date Re corded In the past 12 months, has l ack of transportation kept you from medical appointments or from getting medications? Patient declined 05/16/2023 In the past 12 months, has l ack of transportation kept you from meetings, work, or from getting things needed for daily living? Patient declined 05/16/2023 Housing Stability Vital Sign Answer Lauri e Recorded In the last 12 months, was t here a time when you were not able to pay the mortgage or rent on time? Patient refused 05/16/20 23 In the last 12 months, how many places have you lived? 1 05/16/2023 In the last 12 months, was t here a time when you did not have a steady place to sleep or slept in a intermediate (including now)? Patient refused 05/16/2023 Education Answer Date Recorded What is the highest level of school you have completed or the highest degree you have received? Bachelor's degree (e.g., BA, AB, BS) 10/06/2022 Comments No Sex and Gender Information Value Date Recorded Sex Assigned at Not on file Legal Sex Female 4:14 PM CDT Gender Identity Female 11/16/2021 1:53 PM MICROCHIP SPECIALIST Sexual Orientation Straight 11/16/2021 1: 53 PM MICROCHIP SPECIALIST Last Filed Vital Signs Vital Sign Reading Time Taken Comments Blood Pressure 141/82 10/11/2024 3:30 PM MICROCHIP SPECIALIST Pulse 104 10/11/2024 3:30 PM MICROCHIP SPECIALIST Temperature 36.7 C (98.1 F) 10/11/2024 3:30 PM MICROCHIP SPECIALIST Respiratory Rate 18 03/23/2024 10:00 AM CDT Oxygen Saturation 98% 10/11/2024 3:30 PM MICROCHIP SPECIALIST Inhaled Oxygen Concentration - - Weight 128.4 kg (283 lb) 10/11/2024 3:30 PM MICROCHIP SPECIALIST Height 165.1 cm (5' 5 ) 10/11/2024 3:30 PM MICROCHIP SPECIALIST Body Mass Index 47.09 10/11/2024 3:30 PM MICROCHIP SPECIALIST Plan of Treatment Health Maintenance Due Date Last Done Comments Colorectal Cancer Screening Colonoscopy (10 Years) 1972 Annual Physical 1975 Hepatitis C 1990 DTaP, Tdap and Td Vaccines ( 1 - Tdap) 1991 Hepatitis B Vaccines (1 of 3 - 19+ 3-dose series) 1991 Mammogram Screening 10/11/2020 10/11/2018, 11/16/2017 Zoster Vaccines (1 of 2) 2022 COVID-19 Vaccine (3 - 2023-2 5 season) 2024 12/27/2021, 02/26/2021 Influenza Adult (#1) 2024 PHQ-2 (Physician Patterson) 11/21/2024 Meningococcal B Vaccine Aged Out No l onger eligible based on patient's age to complete this topic Meningococcal Vaccine Aged Out No miles lory eligible based on patient's age to complete this topic Pneumococcal Vaccine: Pediatrics (0 to 5 Years) and At-Risk Patients (6 to 64 Years) Aged Out No longer eligible b ased on patient's age to complete this topic RSV Immunizations Under 20 Months Aged Out No longer eligible b ased on patient's age to complete this topic Goals Goal Patient Goal Type Associated Problems Recent Progress Patient-Stated? Author Family - family caregiver with be involved in care transitions and discharge planning Lifestyle No Jesus Alberto Peterson, RN Medical Devices Implanted Type Area Art Glass Designer Device Identifier Shelf Expiration Date Model / Serial / Lot Graft Bone Infuse Medtronic Large Kit - [id number] Implanted:Qty: 1 on 05/16/2023 by Adolfo Mercedes MD at [facility] Bone N/A: Spine Lumbar [employer] 11/20/2024 [id number] / / [id number] Plate Pyramid 35mm 4 Hole Prmd Bone Spine - [id number] Implanted:Qty: 1 on 05/16/2023 by Adolfo Mercedes MD at [facility] Plate N/A: Spine Lumbar [employer] [id number] / / Description:From sterile mando javier tray 4.75x 65mm Jan Implanted:Qty: 1 on 05/16/2023 by Adolfo Mercedes MD at [facility] Jan N/A: Spine Lumbar [employer] [id number] / / 7.5mm X 35mm Screw Implanted:Qty: 1 on 05/16/2023 by Adolfo Mercedes MD at [facility] Screw N/A: Spine Lumbar [employer] [id number] / / 7.5mm X 40 Mm Screw Implanted:Qty: 1 on 05/16/2023 by Adolfo Mercedes MD at [facility] Screw N/A: Spine Lumbar [employer] [id number] / / Voyager Set Screws Implanted:Qty: 3 on 05/16/2023 by Adolfo Mercedes MD at [facility] Screw N/A: Spine Lumbar [employer] [id number] / / Anteralign Spinal System With Titan Nanolock Screw Implanted:Qty: 2 on 05/16/2023 by Adolfo Mercedes MD at [facility] Screw N/A: Spine Lumbar [employer] [id number] 01/19/2031 [id number] / / [id number] Screw Bone 6.5mm 25mm Titan Spine Ant Va - [id number] Implanted:Qty: 4 on 05/16/2023 by Adolfo Mercedes MD at [facility] Screw N/A: Spine Lumbar [employer] [id number] / / Description:From sterile mando javier tray 6.5mm X 40mm Screw Implanted:Qty: 1 on 05/16/2023 by Adolfo Mercedes MD at [facility] Screw N/A: Spine Lumbar [employer] [id number] / / Medtronic Sm 12dg 12mm Implanted:Qty: 1 on 05/16/2023 by Adolfo Mercedes MD at [facility] Spacer N/A: Spine Lumbar [employer] 04/26/2030 [id number] / / [id number] Anteralign Spinal System With Titan Nanolock Ls Spacer Implanted:Qty: 1 on 05/16/2023 by Adolfo Mercedes MD at [facility] Spacer N/A: Spine Lumbar [employer] [id number] 05/12/2030 [id number] / / [id number] Stent Ureteral Terral Sci Contour 6fr X 26cm - [id number] Implanted:Qty: 1 on 11/18/2021 by Junior Padilla MD at [facility] Stent Left: Ureter [employer] [id number] 07/13/2024 [id number] / / [id number] Graft Soft Tissue 4x4cm [facility] Allograft - [id number] Implanted:Qty: 1 on 05/16/2023 by Adolfo Mercedes MD at [facility] Tissue N/A: Spine Lumbar [employer] 02/18/2028 [id number] / [id number] / . Description:[id number] DONOR ID: [id number] ID: [id number] [facility]: [id number] Explanted Type Area Art Glass Designer Device Identifier Shelf Expiration Date Model / Serial / Lot Stent Uret 6fr 26cm Pigtl Crv Taper Tip Bldr Mrk - [id number] Implanted:Qty : 1 on 10/23/2021 by Junior Padilla MD at [facility] Explanted:Qty : 1 on 11/18/2021 by Junior Padilla MD at [facility] Stent Left: Ureter [employer] [id number] 07/29/2024 [id number] Insurance Advance Directives Documents on File Type Date Recorded Patient Client Server Developer Expl anation Advance Directives and Living Will 05/26/2023 9:55 AM 12/08/21 LIVING WILL Advance Directives and Living Will 05/26/2023 9:55 AM 12/08/21 DURABLE POA FOR HEALTH CARE * Full Code (Latest Code Status on File) Date Activated Date Inactivated Comments 05/27/2023 2:09 PM 03/23/2024 8:38 AM * Full Code Date Activated Date Inactivated Comments 05/26/2023 10:19 AM 05/27/2023 2:06 PM * Full Code Date Activated Date Inactivated Comments 05/16/2023 2:17 PM 05/23/2023 5:22 PM * Full Code Date Activated Date Inactivated Comments 10/23/2021 3:30 PM 10/25/2021 6:24 PM Care Teams After School Program Assistant Relationship Specialty Start Date End Date Rene Austin MD [address] [place] [address] PCP - General FAMILY PRACTICE 10/23/21
--- OUTSIDE RECORDS SUMMARY | 2025-02-04 16:11 | XMS_ITS | Encounter Summary ---
Author Organization [facility] Address [address] [place] [address] Care Team Providers Care Transmissions Systems Operator Name Role Phone Rene Austin MD Primary Care Provider [phone] Reason for Visit * Auth/Cert (Routine) Specialty Diagnoses / Procedures Referred By [place] Referred To Contact Diagnoses Sacroiliitis Pyriformis syndrome, left Procedures BLOCK SACROILIAC JOINT Meaghan Wiley MD [address] [facility] [address] [place] [address] Phone: tel: fax: Referral ID Status Reason Start Date Expiration Date Visits Re quested Visits Authorized [id number] 1 1 Encounter Details Date Type Department Care Team (Late st Contact Info) Description 07/26/[address] [facility] [place], [place] [id number] Meaghan Wiley MD [facility] [address] [place] [address] Social History Tobacco Use Types Packs/Day Years [...] place to sleep or slept in a care home (including now)? Patient refused 05/16/2023 Education Answer Date Recorded What is the highest level of school you have completed or the highest degree you have received? 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 Answer Date of Assessment Author Status No 05/16/2023 2:27 PM CRISTIANT Carlita Salter RN Active * Do you have serious difficulty walking or climbing stairs? Answer Date of Assessment Author Status No 05/16/2023 2:27 PM CRISTIANT Carlita Salter RN Active * Do you have difficulty dressing or bathing? Answer Date of Assessment Author Status No 05/16/2023 2:27 PM Carlita Pryor RN Active * Because of a physical, mental, or emotional condition, do you have difficulty doing errands alone such as visiting a doctor's office or shopping? Answer Date of Assessment Author Status No 05/16/2023 2:27 PM Carlita Pryor RN Active documented as of this encounter Mental Status * Because of a physical, mental, or emotional condition, do you have serious difficulty concentrating, remembering, or making decisions? Answer Entry Date Author Status No 05/16/2023 2:27 PM Carlita Pryor RN Active documented in this encounter Plan of Treatment Not on file documented as of this encounter Goals Goal Patient Goal Type Associated Problems Recent Progress Patient-Stated? Author Family - family caregiver with be involved in care transitions and discharge planning Lifestyle No Jesus Alberto Peterson RN documented as of this encounter Visit Diagnoses Not on filedocumented in this encounter Care Teams Transmissions Systems Operator Relationship Specialty Start Date End Date Rene Austin MD [address] [facility] [address] [place] [address] PCP - General FAMILY PRACTICE 10/23/21 documented as of this encounter
--- OUTSIDE RECORDS SUMMARY | 2025-02-04 16:11 | XMS_ITS | Data Portability ---
Author Organization [facility] [place] Address [address] [place] [address] Care Team Providers Care Manufacturing Team Member Name Role Phone SOL ROJO Primary Care Provider [phone] Assessment Encounter Date Assessment Date Assessment LastModified by Organization Details LastModified Time 01/19/2023 01/19/2023 Annual gynecological exam performed. Patient will come back in a year unless there are new symptoms. Not available 01/19/2023 16:36:08 01/24/2024 01/24/2024 Annual gynecological exam performed. Patient will come back in a year unless there are new symptoms. [email or web address] Not available 01/24/2024 17:45:44 01/29/2025 01/29/2025 Annual gynecological exam performed. Patient will come back in a year unless there are new symptoms. [email or web address] Not available 01/29/2025 17:17:07 Plan of Treatment Reminders Order Date Submit Date Provider Last Modified By Organization Details Last Modified Time Details Appointments None recorded. Lab testosteron e free/testos terone total, ratio, serum [address] [facility] (Lab), [address], [place], [address], 5 17:40:55 testosteron e, total, serum [address] [facility] (Lab), [address] [place], [address], 4 09:31:14 testosteron e, total, serum [address] [facility] (Lab), [address], [place], [address], 4 06:49:22 Referral None recorded. Procedures None recorded. Surgeries None recorded. Imaging MAMMO, screening, digital, bilateral 2024 025 [email or web address] [facility], [address], [place], [address], 5 13:11:52 MAMMO, screening, bilateral 2023 024 [email or web address] [facility], [address], [place], [address], 4 15:05:51 MAMMO, screening, bilateral 2022 023 [facility], [address], [place], [address], 3 05:00:49 Medication Orders estradiol 1 mg tablet 2024 025 [facility], [address] [place] [address], [address], 5 17:40:22 estradiol 1 mg tablet 2023 024 [facility], [address] [place] [address], [address], 4 10:13:56 estradiol 1 mg tablet 2023 024 [facility], [address] [place] [address], [address], 4 18:30:49 Patient TargetsNo targets recorded. Patient InstructionsNo instructions recorded. Reason for Referral None Reported. Results Created Date Observation Date Name Description Value Unit Range Abnormal Flag Note LastModifiedBy Organization Detail LastModifiedTime 01/30/20 24 01/30/2024 TESTO STERO NE, TOTAL testosterone , total 11 NG/dL 0-100 Not Available [facility] (Lab) [address] [place], [address], 01/31/2024 06:49:22 04/26/20 24 04/26/2024 TESTO STERO NE, TOTAL testosterone , total 330 NG/dL 0-100 high Not Available [facility] (Lab) [address] [place], [address], 04/27/2024 09:31:13 05/10/20 24 05/10/2024 DHEA SULFA TE DHEA-sulfate 87 ug/dL Femal e Range s Age(y ) Range (ug/d L) 10-15 34-28 0 15-20 65-36 8 20-25 148-4 07 25-35 99-34 0 35-45 61-33 7 45-55 35-25 6 55-65 19-20 5 65-75 9-246 > 75 12-15 4 Not Available [facility] (Lab) [address] [place], [address], 05/18/2024 00:34:04 05/10/20 24 05/10/2024 PROLA CTIN prolactin, total 5.56 NG/mL 4.79-2 3.30 This assay was perfo rmed using [employer] ratio n reage nts and test kits. Value s obtai tai with other assay metho ds or kits canno t be used inter estrada eably . Not Available [facility] (Lab) [address] [facility], [place], [address], 05/18/2024 00:34:05 05/10/20 24 05/10/2024 HUMAN SEX HORMO NE TASH NG GLOBU VERONICA sex hormone binding globulin 24.1 nmole s/L 16.8-1 25.2 Not Available [facility] (Lab) [address] [place], [address], 05/18/2024 00:34:05 05/10/20 24 05/10/2024 TESTO STERO NE, FREE( DIALY SIS) AND TOTAL (LC/M S/MS) testosterone , total 393 NG/dL 2-45 high For addit ional andya rojas e refer to http: //[facility] tomasa blum.que stdia gnost ics.c om/fa q/ Total Testo stero neLCM SMSFA Q165 (This link is being provi ded for infoelizabeth chavez nal/ educa edward l purpo ses only. ) This test was devel oped and its goyo tical perfo rmanc e sergei cteri stics have been deter mined by [employer] ostisra s Jose ls [place]. It has not been clear ed or appro davon by the U.S. Food and Drug Admin istra tion. This assay has been valid ated pursu ant to the CLIA regul ation s and is used for clini anum purpo ses. Not Available [facility] (Lab) [address] [facility], [place], [address], 05/18/2024 00:34:06 05/10/20 24 05/10/2024 TESTO STERO NE, FREE( DIALY SIS) AND TOTAL (LC/M S/MS) testosterone , free 57.0 pg/mL 0.1-6. 4 high This test was devel oped and its goyo tical perfo rmanc e sergei cteri stics have been deter mined by [employer] madhuri s Jose Pager[employer]uty [place], [place]. It has not been clear ed or appro davon by the U.S. Food and Drug Admin istra tion. This assay has been valid ated pursu ant to the CLIA regul ation s and is used for clini anum purpo ses. Perfo rming Organ izati on [facility] blum: Site ID: AMD Name: Alhaji Aguayoo ls Insti miguel Addre ss: [id number] [facility] [employer] [place], [place] Direc tor: Josefina Mendoza MD PhD Not Available [facility] (Lab) [address] [facility], [place], [address], 05/18/2024 00:34:06 05/10/20 24 05/10/2024 17-OH PROGE STERO NE 17-hydroxypr ogesterone, lc/MS/MS 20 NG/dL Adult Femal e Refer ence Range s for 17-Hy droxy proge stero ne: Pre-M enopa usal Mid Folli cular : 23-10 2 ng/dL Pre-M enopa usal Surge : 67-34 9 ng/dL Pre-M enopa usal Mid Lutea l: 139-4 31 ng/dL Postm enopa usal Phase : < or = 45 ng/dL Pregn lucero: First Trime ster: 78-45 7 ng/dL Secon d Trime ster: 90-35 7 ng/dL Third Trime ster: 144-5 78 ng/dL This test was devel oped and its goyo tical perfo rmanc e sergei cteri stics have been deter mined by [facility]wal [facility]. It has not been clear ed or appro davon by FDA. This assay has been valid ated pursu ant to the CLIA regul ation s and is used for clini anum purpo ses. Perfo rming Organ izati on Infor scott n: Site ID: EZ Name: [facility] ostisra s/Evan narayanan C-S Onealdoris [place] , Addre ss: [id number] [facility] [address] Direc tor: Majo tam MD,Ph D,SANYA Not Available [facility] (Lab) [address] [facility], [place], [address], 05/18/2024 00:34:06 06/29/20 24 06/29/2024 TESTO STERO NE, TOTAL testosterone , total 28 NG/dL 0-100 Not Available [facility] (Lab) [address] [place], [address], 07/09/2024 13:04:11 06/29/20 24 06/29/2024 TESTO STERO NE, FREE testosterone free 2.8 pg/mL 0.2-5. 0 The wilmer ntrat ion of free testo stero ne is deriv ed from a gerardo seymour al model using total testo stero ne by LCMSM S, sex hormo ne tash ng globu veronica and album in. This test was devel oped and its goyo tical perfo rmanc e sergei cteri stics have been deter mined by [employer] [facility] Jose ls Insti [place]. It has not been clear ed or appro davon by the U.S. Food and Drug Admin istra tion. This assay has been valid ated pursu ant to the CLIA regul ation s and is used for clini anum purpo ses. Perfo rming Organ izati on Infor matio n: Site ID: AMD Name: [facility] madhuri s Jose ls Insti tute Addre ss: [id number] [employer] [place], [place] Direc tor: Josefina Mendoza MD PhD Not Available [facility] (Lab) [address] [facility], [place], [address], 07/09/2024 13:04:11 02/24/20 22 02/22/2022 MAMMO , scree rosalinda, bilat eral No observ ation record ed. [facility] [address], [place], [address], 05/19/2023 13:58:37 05/30/20 24 05/29/2024 MAMMO , scree rosalinda, bilat eral No observ ation record ed. [facility] [address], [place], [address], 05/31/2024 15:34:40 Result Notes None recorded. Problems Name Problem SNOMED Code Status Onset Date Resolution Date Notes Provider Name and Address Organization Details Recorded Time Secondar y amenorrh ea 918234975 Completed 201410/27/2021 Secondary amenorrhe a;Practic e ID: 0001 Nelly Inman [facility] [place] - [facility] 12/07/202 1 23:15:11 Pregnanc y test negative [id number] Completed 201410/27/2021 Encounter for test, result negative; Practice ID: [address] [facility] 23:15:01 Miscarri age [id number] Completed 201510/27/2021 Complete or unsp spontaneo us without complicat ion;Pract ice ID: [address] [facility] 23:14:54 Pelvic and perineal pain 132990448 Completed 201510/27/2021 Pelvic and perineal pain;Prac meagan ID: [address] [facility] 23:14:[address] Concept Completed 201610/27/2021 Encntr for weight guesser exam (general) (routine) w/o abn findings; Practice ID: [address] [facility] 23:15:17 Screenin g for malignan t neoplasm of rectum Completed 201610/27/2021 Encounter for screening for malignant neoplasm of rectum;Pr actice ID: [address] [facility] 23:15:09 Insertio n of intraute rine contrace ptive device Completed 201610/27/2021 Encounter for insertion of intrauter ine contracep tive device;Pr actice ID: [address] [facility] 23:14:37 Contrace ptive sheath status [id number] Completed 201610/27/2021 Encounter for routine checking of intrauter ine contracep dev;Pract ice ID: [address] [facility] 23:14:30 Removal of intraute rine device Completed 201610/27/2021 Encounter for removal of intrauter ine contracep tive device;Pr actice ID: [address] [facility] 23:15:03 Migraine [id number] Completed 201710/27/2021 Migraine, unsp, not intractab le, without status migrainos us;Practi ce ID: 0001 Nelly [facility] 23:14:51 Backache [id number] Completed 201710/27/2021 Dorsalgia , unspecifi ed;Practi ce ID: 0001 Nelly [facility] 23:14:13 Finding of menstrua l bleeding Completed 201710/27/2021 Excessive and frequent menstruat ion with regular cycle;Pra ctice ID: 0001 Nelly [facility] 23:14:[address] Concept Completed 201710/27/2021 Encntr for general adult medical exam w/o abnormal findings; Recorded Elsewhere : No Locati on: [facility] So urce: EHR Chron ic: N Practic e ID: 0001 Bill able Time: 08:30:00 AM Nelly [facility] 23:15:14 Clinical finding Completed 201610/27/2021 Presence of (intraute rine) contracep tive device;Re corded Elsewhere : No Locati on: [facility] So urce: EHR Chron ic: N Practic e ID: 0001 Bill able Time: 08:00:00 AM Nelly [facility] 23:14:22 Screenin g for malignan t neoplasm of cervix Completed 201310/27/2021 Screening for malignant neoplasms of the cervix;Re corded Elsewhere : No Locati on: [facility] So urce: EHR Chron ic: N Practic e ID: 0001 Bill able Time: 11:00:00 AM Nelly [facility] 23:15:06 Left lower quadrant pain [id number] Completed 201410/27/2021 Abdominal pain in the left lower belly;Rec orded Elsewhere : No Locati on: [facility] So urce: EHR Chron ic: N Practic e ID: 0001 Bill able Time: 03:15:[address] [facility] 23:14:39 Hormone replacem ent therapy Completed 201910/27/2021 Hormone replaceme nt therapy;R ecorded Elsewhere : No Locati on: [facility] So urce: EHR Chron ic: N Practic e ID: 0001 Bill able Time: 09:45:00 AM [facility]14:34 Speciali zed medical examinat ion Completed 201010/27/2021 Routine gynecolog ical examinati on;Practi ce ID: [address] [facility] 23:15:20 Contrace ption care Completed 201310/27/2021 General counselin g on initiatio n of other contracep tive measures; Practice ID: [address] [facility] 23:14:28 Leukocyt osis [id number] Completed 201410/27/2021 LEUKOCYTO SIS NOS;Pract ice ID: [address] [facility] 23:14:43 Microsco pic hematuri a [id number] Completed 201410/27/2021 HEMATURIA MICROSCOP IC;Practi ce ID: [address] [facility] 23:14:49 Abdomina l pain 77820470 Completed 201410/27/2021 Abdominal pain, unspecifi ed site;Prac meagan ID: 0001 Nelly Inman null, [facility] 23:14:09 Adult health examinat ion Completed 201410/27/2021 Routine general medical examinati on at a health care facility; Practice ID: 0001 Nelly mitchell [facility] 23:14:11 Menstrua l migraine 61776943 Completed 201710/27/2021 Menstrual migraine, not intractab le, w/o status migrainos us;Practi ce ID: 0001 Nelly Inman [facility] 23:14:46 Pain in female genitali a Completed 201710/27/2021 Dysmenorr hea, unspecifi ed;Practi ce ID: 0001 Nelly Inman [facility] 23:14:56 Body mass index 30+ - obesity 274240176 Completed 201710/27/2021 Body mass index (BMI) 50-59.9 , adult;Rec orded Elsewhere : No Locati on: [facility] So urce: EHR Chron ic: N Practic e ID: 0001 Bill able Time: 08:30:00 AM Nelly Inman [facility] 23:14:15 Radiolog ic finding [id number] Completed 201610/27/2021 Oth abn and inconclus barbara findings on dx imaging of breast;Re corded Elsewhere : No Locati on: [facility] So urce: EHR Chron ic: N Practic e ID: 0001 Bill able Time: 02:44:55 PM Nelly Inman [facility] 23:14:18 Problem Notes None recorded. Procedures Surgical History Date Name Laterality Status Provider Name and Address Organization Details Recorded Time 05/29/20 24 Date of Last Mammogram completed Emani Christensen [facility] 01/29/2025 17:16:37 11/09/20 23 Most Recent Bone Density completed Karey [facility] 01/24/2024 17:50:12 10/03/20 23 Date of Last Colonoscopy completed Karey [facility] 01/24/2024 17:49:09 05/16/20 23 procedure on back completed [facility] 01/24/2024 17:52:18 12/08/19 22 TOTAL LAPAROSCOPIC HYSTERECTOMY (SURG) completed Mechelle Louis [facility] 12/09/2021 10:37:01 11/02/20 21 Date of Last Pap Smear completed [facility] 01/24/2024 17:39:22 06/02/20 18 diagnostic laparoscopy completed [facility] 10/31/2021 09:39:52 06/02/20 18 salpingo-oophore ctomy completed [facility] 10/31/2021 09:39:16 Imaging Results Imaging Date Name Status LastModified by Organiz ation Details LastModified Time 02/22/2022 MAMMO, screening, bilateral completed [address] [facility] [address], [place], [address], 05/19/2023 13:58:37 05/29/2024 MAMMO, screening, bilateral completed [facility] [address], [place], [address], 05/31/2024 15:34:40 Procedure Notes None recorded. Medical Equipment None Reported. Allergies No known drug allergies Medications Name Sig Start Date Stop Date Status Note LastModified by Organization Details LastModified Time cyclobenz aprine 10 mg tablet TAKE 1 TABLET BY MOUTH THREE TIMES DAILY NEEDED FOR MUSCLE SPASM 01/19 completed Not Available Not Available Not Available prednison e 10 mg tablet 10/27 completed Not Available Not Available Not Available hydrocodo ne 5 mg-acetam inophen 325 mg tablet TAKE 1 TABLET BY MOUTH EVERY 6 HOURS NEEDED FOR PAIN 01/29 completed Not Available Not Available Not Available sucralfat e 1 gram tablet TAKE 1 TABLET BY MOUTH THREE TIMES DAILY NEEDED FOR ABDOMINA L PAIN 01/29 completed Not Available Not Available Not Available ibuprofen 200 mg capsule take 1 capsule by oral route every 6 hours as needed 12/16 completed Prescrib ed Elsewher e: Yes Loca tion: [facility] odify By: yahaira cruz DateTime : 03/24/20 03:15:00 PM Not Available Not Available Not Available metronida zole 500 mg tablet TAKE 1 TABLET BY MOUTH EVERY 8 HOURS 01/29 completed Not Available Not Available Not Available amlodipin e 5 mg tablet TAKE 1 TABLET BY MOUTH EVERY DAY 01/19 completed Not Available Not Available Not Available ciproflox acin 500 mg tablet take 1 tablet by oral route every 12 hours 12/02 completed Not Available Not Available Not Available tramadol 50 mg tablet TAKE 1 TABLET BY MOUTH EVERY 6 HOURS NEEDED FOR PAIN 01/19 completed Not Available Not Available Not Available oxycodone -acetamin ophen 5 mg-325 mg tablet TAKE 1-2 TABLETS BY MOUTH EVERY 4 (FOUR) HOURS NEEDED FOR PAIN. INDICATI ONS: ACUTE PAIN 01/23 completed Not Available Not Available Not Available Metrogel Vaginal 0.75 % (37.5 mg/5 gram) insert 1 applicat orful by vaginal route every day at bedtime 11/18 completed Prescrib ed Elsewher e: No Locat ion: [facility] odify By: emilyy Christian johnson DateTime : 03/26/20 04:13:12 PM Not Available Not Available Not Available famotidin e 20 mg tablet TAKE 1 TABLET BY MOUTH ONCE DAILY 01/29 completed Not Available Not Available Not Available estradiol 1 mg tablet Take 1 tablet every day by oral route with meal(s) for 90 days. 2024 active Not Available Not Available Not Avai lable benzonata te 100 mg capsule TAKE 1 TO 2 CAPSULES BY MOUTH THREE TIMES DAILY NEEDED FOR COUGH 01/29 completed Not Available Not Available Not Available lisinopri l 30 mg tablet TAKE 1 TABLET BY MOUTH ONCE DAILY active Not Available Not Available No t Available lisinopri l 20 mg-hydroc hlorothia zide 25 mg tablet 12/16 completed Not Available Not Available Not Available Tylenol 325 mg tablet take 1 tablet by oral route every 4 hours as needed 02/16 completed Prescrib ed Elsewher e: Yes [facility] By: amlianne Sampson ncounter DateTime : 03/24/20 15 03:15:00 PM Not Available Not Available Not Available Provera 10 mg tablet take 1 tablet by oral route every day 09/21 completed Prescrib ed Elsewher e: No Locat ion: [facility] odify By: lili Sampson ncounter DateTime : 11/25/19 16 05:15:00 PM Not Available Not Available Not Available hydrochlo rothiazid e 25 mg tablet TAKE 1 TABLET BY MOUTH ONCE DAILY active Not Available Not Available No t Available [place] 10 mg-325 mg tablet take 1 tablet by oral route every 4 - 6 hours as needed for pain 12/01 completed Prescrib ed Elsewher e: No Locat ion: [facility] odify By: santaigo Sampson ncounter DateTime : 05/02/20 18 11:25:17 AM Not Available Not Available Not Available furosemid e 20 mg tablet TAKE 1 TABLET BY MOUTH EVERY MORNING 01/23 completed Not Available Not Available Not Available diazepam 10 mg tablet TAKE ONE TABLET BY MOUTH A ONE-TIME DOSE ONE HOUR PRIOR TO PROCEDUR E 01/19 completed Not Available Not Available Not Available levofloxa abbe 750 mg tablet TAKE 1 TABLET BY MOUTH ONCE DAILY 01/29 completed Not Available Not Available Not Available ondansetr on 4 mg disintegr ating tablet DISSOLVE 1 TABLET IN MOUTH EVERY 8 HOURS NEEDED FOR NAUSEA AND VOMITING 01/29 completed Not Available Not Available Not Available cefdinir 300 mg capsule 300 MG ORALLY EVERY 12 HOURS FOR UTI 01/23 completed Not Available Not Available Not Available lisinopri l 2.5 mg tablet take 1 tablet by oral route every day 10/27 completed Prescrib ed Elsewher e: Yes [facility] By: ever jhonson DateTime : 08/03/20 03:54:08 PM Not Available Not Available Not Available phentermi ne 37.5 mg capsule Take 1 capsule every day by oral route. 01/23 completed Not Available Not Available Not Available diazepam 5 mg tablet TAKE 1 TABLET (5 MG TOTAL) BY MOUTH EVERY 6 (SIX) HOURS NEEDED (SPASMS) . 01/23 completed Not Available Not Available Not Available escitalop sunitha 10 mg tablet 10/27 completed Not Available Not Available Not Available Debi 0.35 mg tablet take 1 tablet by oral route every day 03/24 completed Prescrib derick Ash e: No [facility]at [facility] odify By: yahaira cruz DateTime : 09/03/20 08:35:35 AM Not Available Not Available Not Available escitalop sunitha 5 mg tablet TAKE 1 TABLET BY MOUTH ONCE DAILY 01/19 completed Not Available Not Available Not Available nitrofura ntoin monohydra te/macroc rystals 100 mg capsule TAKE 1 CAPSULE BY MOUTH TWICE DAILY FOR 5 DAYS 12/16 completed Not Available Not Available Not Available multivita min 01/29 completed Not Available Not Available Not Available Senexon-S 8.6 mg-50 mg tablet TAKE 1 TABLET BY MOUTH TWICE A DAY NEEDED 01/23 completed Not Available Not Available Not Available sodium,po tassium,m ag sulfates 17.5 gram-3.13 gram-1.6 gram oral soln TAKE DIRECTED 01/23 completed Not Available Not Available Not Available OneTouch Verio test strips USE TO TEST DAILY 01/23 completed Not Available Not Available Not Available Trulicity 1.5 mg/0.5 mL subcutane ous pen injector INJECT 1.5 MG (0.5 ML) SUBCUTAN EOUSLY WEEKLY 01/19 completed Not Available Not Available Not Available Trulicity 0.75 mg/0.5 mL subcutane ous pen injector INJECT 0.75 MG (0.5ML) SUBCUTAN EOUSLY WEEKLY 01/19 completed Not Available Not Available Not Available OneTouch Verio Flex Meter USE TO CHECK GLUCOSE ONCE DAILY IN THE MORNING AFTER FASTING 01/23 completed Not Available Not Available Not Available Ozempic 0.25 mg or 0.5 mg (2 mg/1.5 mL) subcutane ous pen injector Inject by subcutan eous route. 01/23 completed Not Available Not Available Not Available OneTouch Delica Plus Lancet 33 gauge DIRECTED TO TEST BLOOD SUGAR DAILY 01/23 completed Not Available Not Available Not Available vitamin D3 1,250 mcg (50,000 unit)-vit webb K2 200 mcg capsule Take by oral route. active Not Available Not Available No t Available Paxlovid 300 mg (150 mg x 2)-100 mg tablets in a dose pack TAKE 3 TABLETS TOGETHER (TWO 150 MG NIRMATRE LVIR TABLETS AND ONE 100 MG RITONAVI R TABLET) BY MOUTH TWICE DAILY FOR 5 DAYS. 01/29 completed Not Available Not Available Not Available Ozempic 0.25 mg or 0.5 mg (2 mg/3 mL) subcutane ous pen injector 0.5 MG (0.736 ML) SUBCUTAN EOUSLY WEEKLY FOR 4 WEEKS 01/23 completed Not Available Not Available Not Available Vitals Date Recorded Body height Body mass index (BMI) Body weight Systolic blood pressure Diastolic blood pressure Provider Name and Address Organization Details Last Updated DateTime 12/16/2021 158.12 cm 54.2 kg/m2 993597.1 2 g 135 mm[Hg] 82 mm[Hg] Jennifer Be [facility] 14:02:31 Date Recorded Body weight Provider Name an d Address Organization Details Last Updated DateTime 01/19/2023 604971.35 g Nelly Bridger [facility] 01/19/2023 16:36:27 Date Recorded Systolic blood pressure Diastolic blood pressure Provider Name and Address Organization Details Last Updated DateTime 01/19/2023 126 mm[Hg] 74 mm[Hg] Bharati Kramer, VANES[facility]- [address], [place], [address], [facility] 01/19/2023 17:09:43 Date Recorded Body height Body mass index (BMI) Body weight Systolic blood pressure Diastolic blood pressure Provider Name and Address Organization Details Last Updated DateTime 01/29/2025 158.12 cm 53.2 kg/m2 579771.5 6 g 171 mm[Hg] 74 mm[Hg] Emani Crhistensen [facility] 17:26:37 Social History Question Answer Notes LastModified by Organizat ion Details LastModified Time Tobacco Smoking Status Never Smoker Jaylene Dickinson stephen, [facility] 12/16/2021 13:48:12 Do You Have An Advance Directive? No Information n ot available 10/28/2021 What Is Your Level Of Alcohol Consumption? Occasional Information not available 10/27/2021 Are You Blind Or Do You Have Difficulty Seeing? No Information n ot available 10/27/2021 What Is Your Level Of Caffeine Consumption? Occasional Information not available 10/27/2021 How Much Tobacco Do You Chew? None Information not available 10/28/2021 In The 14 Days Before Symptom Onset, Have You Had Close Contact With A Laboratory-confirm ed COVID-19 While That Case Was Ill? No Information n ot available 10/28/2021 In The 14 Days Before Symptom Onset, Have You Had Close Contact With A Person Who Is Under Investigation For COVID-19 While That Person Was Ill? No Information not available 11/02/2021 Have You Been To An Area Known To Be High Risk For COVID-19? No Information not available 10/28/2021 Are You Deaf Or Do You Have Serious Difficulty Hearing? No Information not available 10/27/2021 What Type Of Diet Are You Following? REGULAR Information n ot available 11/02/2021 What Is The Highest Grade Or Level Of School You Have Completed Or The Highest Degree You Have Received? 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 No Information not available 10/28/2021 Do You Use Protection During Sex? No Information not available 10/28/2021 Do You Use Your Seat Belt Or Car Seat Routinely? Yes Information not available 10/27/2021 Do You Have Smoke And Carbon Monoxide Detectors In Your Home? Yes Information not available 10/27/2021 How Much Tobacco Do You Smoke? No Information not available 10/28/2021 Do You Feel Stressed (tense, Restless, Nervous, Or Anxious, Or Unable To Sleep At Night)? [id number] Information not available 11/02/2021 Do You Use Any Illicit Or Recreational Drugs? No Information not available 10/27/2021 Do You Use Sunscreen Routinely? Yes Information not available 10/27/2021 Have You Used IV Drugs? No Information not available 10/28/2021 Sex: Unknown Functional Status Question Answer Note LastModified by Organizat ion Details LastModified Time Do you have difficulty walking or climbing stairs? No Information not available 01/19/2023 Are you able to walk? YESWOREST Information not available 10/27/2021 Are you able to care for yourself? Yes Information not available 01/19/2023 Do you have difficulty dressing or bathing? No Information not available 01/19/2023 What is your exercise level? Occasional Information not available 10/27/2021 Mental Status None recorded. Family History Relationship Description Onset Age of this Age Resolved Age Notes LastModified by Organization Details LastModified Time Father Leukemia [email or web address] Not availabl e 01/29/2025 17:12:19 Maternal Aunt Endometriosi s (clinical) [email or web address] Not available 09/2025 17:12:19 Maternal Aunt Diabetes mellitus Not available 2020 23:17:21 Maternal Aunt Hypertensive disorder Not available 2020 23:17:34 Maternal Grandfather Heart disease Not available 2020 23:17:53 Maternal Grandfather Hypertensive disorder Not available 2020 23:18:00 Maternal Grandmother Hypertensive disorder Not available 12/07/ 2021 23:18:13 Maternal Grandmother Diabetes mellitus Not available 2020 23:18:20 Mother Endometriosi s (clinical) Not available 09/2025 17:12:19 Mother Hypertensive disorder Not available 2020 23:18:38 Medical History Condition Response Other Y Kidney or Bladder Problems Y Polycystic ovary syndrome Y Hypertension Y Gynecological History Statement/Question Response Date of Last Mammogram 05/29/2024 Date of LMP 03/21/2018 N STIs/STDs N Was last menstrual period normal N If Post Menopausal, Age at Menopause 47 Date of Last Colonoscopy 10/03/2023 Hysterectomy Desired Control Method None HPV Vaccine N Duration of Flow (days) 7 Current Control Method Hysterectom y Age at First Child 30 Are cycles usually normal N Frequency of Cycle (Q days) 30 Most Recent Bone Density 11/09/2023 Sexually Active? N Menses Monthly N Age of first menstrual cycle 16 Date of Last Pap Smear 11/02/2021 Sexual Problems? N LMP Unknown N Obstetrics History GPAL:G 2 P 0 0 1 1 Type Value Spontaneous 1 Living 1 Total 2 Past Encounters Encounter ID Performer Location Encounter Start Date Encounter Closed Date Diagnosis/Indication Diagnosis SNOMED-CT Code Diagnosis ICD10 Code Diagnosis Note [id number] Shantanu Kibmrough MD [facility] [address] [address] 10/28/2021 17:39:37 10/29/2021 09:43:10 Uterine leiomyoma 90557797 D25.9 Pain in pelvis [id number] R10.2 this patient is a 50-year-ol d with pelvic pain. Patient was recent the emergency department had a CT the abdomen pelvis. This CT showed a 10 cm fibroid within the uterus. Patient also has a large kidney stone and multiple bulging discs within her back. She has multiple pain problems. She does have sharp pain within the pelvis. She has pressure and cramping. Patient is status post BSO. Patient is looking to sort out all her pain conditions . She wants to relieve her pelvic pain with removal of the fibroid. We discussed those findings and the potential treatment of her pain problem within the pelvis. We agreed to obtain a pelvic ultrasound . We will look at the fibroid and consider surgery. We discussed total laparoscop ic hysterecto my. We spent more than 25 minutes face-to-fa ce. We discussed reassess affects of her care. We discussed uterine fibroids peer we discussed her surgical history and some of her other medical problems. [id number] Melody Crowder [facility] [address] [address] 10/29/2021 16:55:02 10/29/2021 17:45:48 Uterine leiomyoma [id number] D25.9 R10.2 [id number] Shantanu Kimbrough MD [facility] [address] [address] 10/31/2021 10:09:38 10/31/2021 11:57:29 Pain in pelvis [id number] R10.2 this patient is a 50-year-ol d female who presents for follow-up on pelvic ultrasound . The patient is known to have a large uterine fibroid. Ultrasound revealed a 10 cm uterine fibroid today. The patient is symptomati c from this fibroid. She has urinary symptoms. She has frequency and anterior pelvic pressure. She has a very low back pain. She has lot of pressure in her pelvis. This set of symptoms affects her quality of life and activities of daily living. 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 Patient is eager to have surgical treatment of the fibroid. She would like it removed. Discussed treatment options in detail. We looked at her ultrasound together. We spent over 25 minutes face-to-fa ce. We agreed to total laparoscop ic hysterecto my. [id number] Bharati Kramer [facility] [address] [address] 11/02/2021 16:32:36 11/03/2021 18:39:42 Gynecologic examination [id number] Z01.419 Suggested Calcium with Vitamin D 1200-1500m g daily. Patient advised to get an annual flu shot in the fall and she could obtain at [facility] or [facility] take care clinic. Also to obtain TDap vaccinatio n if you have not had one in the last 10 years. Recommend yearly mammograms . Encouraged monthly self breast exams. Encourage safe sexual practices, to use condoms and limit partners if not already in a monogamous relationsh ip. Engage in daily exercise of low impact aerobic exercise 45-60 minutes 4-5 times weekly. Avoid tobacco and illicit drugs as well as using moderation with alcohol intake less than 1-2 8 oz beverages daily. This lifestyle behavior pattern will lead to less health conditions and longer life span. If BMI greater than 25 weight watchers or dietary consult advised. All questions have been answered. Patient appears to understand informatio n, but if you have any questions please call or respond to this email.Pap/ hpv sentMammo orderedCol on-UTD PCPDexa recommende d 2022 (5yrs post-BSO)H aving Hysterecto my 12/12/2021 for large uterine fibroid mass.STD declinedMo nogamousNo t current SA-spouse has health issues. [id number] Shantanu Kimbrough MD [place] [address],[place] [address] 12/02/2021 15:43:45 12/03/2021 15:24:28 Pain in pelvis [id number] R10.2 Uterine leiomyoma [id number] D25.9 R10.2 this patient is a 51-year-ol d female with pelvic pain and uterine fibroids. We have agreed to perform total laparoscop ic hysterecto my. She understand s the risks, benefits, and alternativ es. She has completed the informed consent process and is ready to proceed. [id number] Shantanu Kimbrough MD [facility] [address],[place] [address] 12/11/2021 09:24:59 12/11/2021 09:26:43 [id number] Shantanu Kimbrough MD [facility] [address],[facility] [place] [address] 12/16/2021 13:45:07 12/17/2021 14:43:20 Postoperative care [id number] Z48.89 this patient is a 51 year female presents for postop follow-up. She is 1 week postop from a total laparoscop ic hysterecto my. She has no complaints . Her incisions are clean dry and intact. She has minimal pain. She is recovering normally. She will follow-up as needed. [id number] [facility] [address] [address] 01/19/2023 16:22:33 01/19/2023 17:43:31 Gynecologic examination [id number] Z01.419 Z11.51 Suggested Calcium with Vitamin D 1200-1500m g daily. Patient advised to get an annual flu shot in the fall and she could obtain at [facility] or [facility] care clinic. Also to obtain TDap vaccinatio n if you have not had one in the last 10 years. Recommend yearly mammograms . Encouraged monthly self breast exams. Encourage safe sexual practices, to use condoms and limit partners if not already in a monogamous relationsh ip. Engage in daily exercise of low impact aerobic exercise 45-60 minutes 4-5 times weekly. Avoid tobacco and illicit drugs as well as using moderation with alcohol intake less than 1-2 8 oz beverages daily. This lifestyle behavior pattern will lead to less health conditions and longer life span. If BMI greater than 25 weight watchers or dietary consult advised. All questions have been answered. Patient appears to understand informatio n, but if you have any questions please call or respond to this email. Pap/hpv hysterecto my USPSTF recommends against screening for cervical cancer in women older than 65yo, those who've had a hysterecto my for non-cancer indication s, & who have had adequate prior screening & are not otherwise at high risk for cervical cancer. STD Screen declinedGe netic Screen discussedC olon Screen PCPDexa Screen PCPRoutine Labs PCPMammo orderedNo vasomotor sx's but we discussed HRT moving forwarded if needed. Screening mammography 24 045861 Z12.31 [id number] AUBRIE Judge[facility] [address] [address] 01/24/2024 17:36:45 01/26/2024 10:59:21 Gynecologic examination 57017189 Z01.419 Z11.51 Suggested Calcium with Vitamin D 1200-1500m g daily. Patient advised to get an annual flu shot in the fall and she could obtain at [facility] or [facility] care clinic. Also to obtain TDap vaccinatio n if you have not had one in the last 10 years. Recommend yearly mammograms . Encouraged monthly self breast exams. Encourage safe sexual practices, to use condoms and limit partners if not already in a monogamous relationsh ip. Engage in daily exercise of low impact aerobic exercise 45-60 minutes 4-5 times weekly. Avoid tobacco and illicit drugs as well as using moderation with alcohol intake less than 1-2 8 oz beverages daily. This lifestyle behavior pattern will lead to less health conditions and longer life span. If BMI greater than 25 weight watchers or dietary consult advised. All questions have been answered. Patient appears to understand informatio n, but if you have any questions please call or respond to this email. Pap/hpv hysterecto my USPSTF recommends against screening for cervical cancer in women older than 65yo, those who've had a hysterecto my for non-cancer indication s, & who have had adequate prior screening & are not otherwise at high risk for cervical cancer. STD Screen declinedGe netic Screen discussedC olon Screen PCPDexa Screen PCPRoutine Labs PCPMammo ordered Screening mammography 24 870433 Z12.31 Reduced libido 5548316 R 68.82 Call out testostero ne cream2 clicks to each inner thigh daily Counseled on medication R/B's, Most common side effects, & use. All questions were answered to patient satisfacti on. RTO x 3mos med checkWill repeat T-level at that time Menopausal symptom 21227 002 N95.1 Post-hyset erectomy for non-cancer ous indication sEstradiol only prescribed RTO med check x 3mos We discussed Menopausal Hormone therapy (MHT) for women with intact uterus with the goals of reliving vaso-motor sx's using estrogen/p rogestin therapy (EPT) using lowest doses for shortest duration in women 40-59yo. Contraindi cations include: Hx of DVT or thrombolic events, High cholestero l, Hx of breast cancer, known CHD, active liver disease, unexplaine d vag bleeding, high risk endometria l cancer, TIA. Side effects can include but are not limited to: Irregular vag bleeding,, breast tenderness , nausea, weight changes, libido changes, nausea. Adverse Rxn: Elevated BP migraine w/ visual changes, breast cancer dx, MN/stroke, DVT/PE, Endometria l cancer. Please contact office with any new or worsening side effects or adverse reactions. Or if a medical emergency please go to nearest ED/Urgency care for further evaluation . [id number] AUBRIE Judge[facility] [address] [address] 04/26/2024 08:58:22 04/26/2024 10:19:25 Reduced libido 5975996 R68.82 RF sentUpdate d labs orderedAs long as Total T levels stay within normal range and she is achieving her goals on current dose then RF can be sent x 1yr Menopausal symptom 71438 002 N95.1 Doing well on Estradiol 1mg.Energy levels backImprov ed vasomotor sx'sImprov ed a overall well-being We agreed to continue therapy at this time unless otherwise indicated. Time spent in visit is a total of 21 mins with at least 50% of visit consisting of counseling and review of plan of care. [id number] NANCY HACKETT NP [facility] [address] [address] 01/29/2025 17:11:37 01/30/2025 13:11:52 Menopausal symptom 15220165 N95.1 Hx hysterecto my with BSO for non-cancer ous indication s Estradiol 1 mg PO daily refilled. Reviewed risks/bene fits/AEs of HRT:We discussed Menopausal Hormone therapy (MHT) for women with intact uterus with the goals of reliving vaso-motor sx's using estrogen/p rogestin therapy (EPT) using lowest doses for shortest duration in women 40-59yo. Contraindi cations include: Hx of DVT or thrombolic events, High cholestero l, Hx of breast cancer, known CHD, active liver disease, unexplaine d vag bleeding, high risk endometria l cancer, TIA. Side effects can include but are not limited to: Irregular vag bleeding,, breast tenderness , nausea, weight changes, libido changes, nausea. Adverse Rxn: Elevated BP migraine w/ visual changes, breast cancer dx, MN/stroke, DVT/PE, Endometria l cancer. Please contact office with any new or worsening side effects or adverse reactions. Or if a medical emergency please go to nearest ED/Urgency care for further evaluation . Gynecologi c examination [id number] Z01.419 Annual gynecologi anum exam performed. Patient will come back in a year unless there are new symptoms. Suggest Calcium with Vitamin D if not eating in diet. Patient advised to get annual flu shot. Recommend yearly physicals and perform monthly breast exams. Genetic testing is available for patients with family history of cancer. Engage in safe sexual practices, use condoms. Encouraged to have daily exercise. Avoid tobacco and illicit drugs, moderation of alcohol. If BMI greater than 25 dietary consult advised. If you have any questions please call or email. mammogram- order given, pt to schedule colon cancer screening - UTD PCP DEXA scan- UTD PCP Pap smear- pap/hpv d/cUSPSTF recommends against screening for cervical cancer in women older than 65yo, those who've had a hysterecto my for non-cancer indication s, & who have had adequate prior screening & are not otherwise at high risk for cervical cancer. laboratory evaluation - PCP STI testing - declined Screening mammography 24 102298 Z12.31 Reduced libido 1593488 R 68.82 Patient reports improvemen t in libido since using testostero ne cream - 1 click on one thigh, three times weekly.Upd ated labs ordered to assess testostero ne levelsAs long as Total T levels stay within normal range and she is achieving her goals on current dose then RF can be sent x 1yr to [place] [facility] - will await results prior to ordering. Health Concerns Section Related Observation LastModified by Organization Detai ls LastModified Time None Recorded Concern Status LastModified by Organization Details LastModified Time None Recorded Advance Directives Directive N: Payers Encounter Date Sequence Insurance Name Policy Number Policy Romero Covered Member ID Romero Member ID Guarantor Name 12/16/2021 1 [facility] (PPO) [id number] Aristeo B Krysten [id number] Aristeo Krysten 01/19/2023 1 [facility] (PPO) [id number] Aristeo B Krysten [id number] Aristeo Krysten 01/24/2024 1 [employer] [id number] Aristeo Krysten [id number] Aristeo Krysten 04/26/2024 1 [employer] [id number] Aristeo Krysten [id number] Aristeo Krysten 01/29/2025 1 [employer] [id number] Aristeo Krysten [id number] Aristeo Bashir Notes Date Note Type Note Provider Name and Address Organization Details Recorded Time 12/16/2021 text/html this patient is a 51 year female presents for postop follow-up. She is 1 week postop from a total laparoscopic hysterectomy. She has no complaints. Her incisions are clean dry and intact. She has minimal pain. She is recovering normally. She will follow-up as needed. Shantanu Kimbrough MD [address], [place], [address], [facility] 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.Menopaus al Symptoms:no menopausal symptoms; normal vaginal lubrication Vaginal Bleeding:history of menopause having occurred; no history of post menopausal bleeding Urinary Symptoms:no hematuria; no incontinence; no nocturia; no urinary frequency Vulva:no genital lesion; no vulvar atrophy Vagina:normal vaginal discharge; no vaginal atrophy Breast:no breast lump; no nipple discharge; no breast pain Sexual Complaints:no sexual complaints Psychological Symptoms:no depression; no anxiety Preventive Measures:encourage regular mammograms starting age 40; encourage self breast examination; encourage regular exercise; encourage no tobacco use; needs to schedule mammogram; history of recent colonoscopy AUBRIE Judge- [address], [place], [address], [facility] 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.Menopaus al Symptoms:normal vaginal lubrication;hot flashes;insomnia due to night sweats Vaginal Bleeding:history of menopause having occurred; no history of post menopausal bleeding Urinary Symptoms:no hematuria; no incontinence; no nocturia; no urinary frequency Vulva:no genital lesion; no vulvar atrophy Vagina:normal vaginal discharge; no vaginal atrophy Breast:no breast lump; no nipple discharge; no breast pain Sexual Complaints:no sexual complaints;decreas ed libido Psychological Symptoms:no depression; no anxiety Preventive Measures:encourage regular mammograms starting age 40; encourage self breast examination; encourage regular exercise; encourage no tobacco use; needs to schedule mammogram; history of recent colonoscopy Bharati Kramer [facility] [address], [place], [address], [facility] 01/26/2024 10:53:54 04/26/2024 text/html Here for medication check of HRT for post-menopause. Bharati Kramer [facility] [address], [place], [address], [facility] 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.Menopaus al Symptoms:no menopausal symptoms; normal vaginal lubrication Vaginal Bleeding:history of menopause having occurred; no history of post menopausal bleeding Urinary Symptoms:no hematuria; no incontinence; no nocturia; no urinary frequency Vulva:no genital lesion; no vulvar atrophy Vagina:normal vaginal discharge; no vaginal atrophy Breast:no breast lump; no nipple discharge; no breast pain Sexual Complaints:no sexual complaints Psychological Symptoms:no depression; no anxiety Preventive Measures:encourage regular mammograms starting age 40; encourage self breast examination; encourage regular exercise; encourage no tobacco use Patient presents for annual well woman exam. Patient denies concerns today.History of hyst with BSO. Doing well on HRT with estradiol.Patient uses compounded testosterone cream - 1 click on one thigh, three times weekly. States that libido has improved. NANCY HACKETT NP [address], [place], [address], [facility] 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 Status 10/28/20 21 1 CLOSED Fetus Data First Name Last Name Admitted to NICU Weight (g) Sex Living Outcome Pediatric Complications Fetus ID Race Codes Race Delivery Type F [id number] Vaginal Delivery Kasi Calculation Initial Kasi Date Initial Exam Date Initial Exam Provider Initial Ultrasound Date Last Menstrual Period Date Ultra Sound Weeks Gestation 0 Eighteen To Twenty Week Kasi Update Ultra Sound Date Fundal Height At Umbil Quickening Date Ultra Sound Latest Weeks Gestation Final Kasi Confirmed By Final Kasi Confirmed Date Final Kasi Date Ultra Sound Latest Days Gestation 0 0 Menstrual History Last Menstrual Date Menses Monthly On Bcp Conception Prior Menses Frequency Hcg Plus Date Menarche Onset Age Delivery Information Delivery Date Delivery Type Labor Anesthesia Weeks Gestation Incision Type Labor Labor Length Hrs Delivered By Post Complications Tubal Sterilization Discharge Date Comments 1 Discharge Information Feeding Method Contraceptive Method Maternal HG B and HCT Levels Ob Episode Information Episode Created Date Number of Fetuses Patient Bloodtype Patient rh Status Prepregnancy Weight lbs Domestic Partner Domestic Partner Phone Father Name Car Body Designer Status 10/28/20 21 1 CLOSED Fetus Data First Name Last Name Admitted to NICU Weight (g) Sex Living Outcome Pediatric Complications Fetus ID Race Codes Race Delivery Type , Spontane ous [id number] Kasi Calculation Initial Kasi Date Initial Exam Date Initial Exam Provider Initial Ultrasound Date Last Menstrual Period Date Ultra Sound Weeks Gestation 0 Eighteen To Twenty Week Kasi Update Ultra Sound Date Fundal Height At Umbil Quickening Date Ultra Sound Latest Weeks Gestation Final Kasi Confirmed By Final Kasi Confirmed Date Final Kasi Date Ultra Sound Latest Days Gestation 0 0 Menstrual History Last Menstrual Date Menses Monthly On Bcp Conception Prior Menses Frequency Hcg Plus Date Menarche Onset Age Delivery Information Delivery Date Delivery Type Labor Anesthesia Weeks Gestation Incision Type Labor Labor Length Hrs Delivered By Post Complications Tubal Sterilization Discharge Date Comments 5 Discharge Information Feeding Method Contraceptive Method Maternal HG B and HCT Levels
== END 2025-02-04 13:37 | disposition home or self-care (01) ==
PROVIDERS: PCP Family Medicine; Visit Provider Orthopaedic Surgery
DX: M16.12 Unilateral primary osteoarthritis, left hip (principal)
CPT/HCPCS: 20610; 77002; J1010; Q9966

== ENCOUNTER 2025-03-13 16:06 | Outpatient (CLI) | payer BC, SELFPAY ==
--- NOTE | ~2025-03-13 | XR_ITS ---
Exam: Abdomen 1V HISTORY: ureteral stone COMPARISON: 02/04/2024 TECHNIQUE: Supine images of the abdomen FINDINGS: Bowel gas pattern is nonspecific and early afternoon non-obstructive. There is no free air or deep sulci. No pathologic calcifications are seen. Redemonstration of phleboliths within the left hemipelvis. Lung bases are unremarkable. Fixation hardware within the lower lumbar spine. IMPRESSION: Nonspecific, nonobstructive bowel gas pattern. No renal or ureteral calculi, as detailed above. Reviewed, dictated and finalized at location A.
--- NOTE | ~2025-03-13 | US_ITS ---
EXAM: RENAL ULTRASOUND HISTORY: ureteral stone COMPARISON: 02/04/2024 and dating back to 07/19/2022 FINDINGS: RIGHT KIDNEY: 11.6 x 5.3 x 6.8 cm. The parenchyma of the right kidney is unremarkable in echogenicity. No hydronephrosis or renal calculi. LEFT KIDNEY: 13 x 6.5 x 5 point cm No hydronephrosis or renal calculi. The parenchyma of the left kidney is unremarkable in echogenicity. BLADDER: The bladder is minimally distended, with bilateral ureteral jets identified. IMPRESSION: Unremarkable sonographic evaluation of the bilateral kidneys, as detailed above. Reviewed, dictated and finalized at location A. IMPRESSION: Unremarkable sonographic evaluation of the bilateral kidneys, as detailed above .
--- OUTSIDE RECORDS SUMMARY | 2025-03-13 17:37 | XMS_ITS | Clinical Summary ---
Author Organization [facility] Address [address] [place] [address] Care Team Providers Care Court Recording Monitor Name Role Phone Rene Austin MD Primary Care Provider [phone] Source Comments [facility],non-owned Affiliates and Associated Physician Practices is amultiple site organization consisting of ambulatory clinics and hospital sitesin [place], [place], [place] and [place]. This disclosure is being madepursuant to the Care Everywhere program and may not contain all information available regarding this patient. Last updated 18.[facility] Social History Tobacco Use Types Packs/Day Years Used Date Smoking Tobacco: Never Assessed Comments Unknown Sex and Gender Information Value Date Recorded Sex Assigned at Not on file Legal Sex Female 11:09 AM CDT Gender Identity Not on file Sexual Orientation [...] VACCINE (1 of 2) 2022 COVID-19 VACCINE (1 - 2023-2 5 season) 2024 DEPRESSION SCREENING 11/21/2024 INFLUENZA VACCINE (Season Ended) 2025 HIB VACCINE Aged Out No longer eligi [...] on patient's age to complete this topic Insurance [facility] * Guarantor: ARISTEO BASHIR Account Type Relation to Patient Date of Phone Billing Address Personal/Family Spouse Care Teams Court Recording Monitor Relationship Specialty Start Date End Date Rene Austin MD [address] [place] [address] PCP - General 05/05/18
--- OUTSIDE RECORDS SUMMARY | 2025-03-13 17:37 | XMS_ITS | Encounter Summary ---
Author Organization [facility] Address [address] [place] [address] Care Team Providers Care Docking Pilot Name Role Phone Rene Austin MD Primary Care Provider [phone] Encounter Details Date Type Department Care Team (Late st Contact Info) Description 05/20/2022 Lab Requisition [facility] [address] [address] Davin Ornelas MD [address] [place] [address] Social History Tobacco Use Types Packs/Day Years [...] AM CDT) Case Report Dermatopathology Report Case: [id number] Authorizing Provider: Davin Ornelas MD Collected: 05/19/2022 12:00 AM Ordering Location: [facility] Received: 05/20/2022 12:00 PM Pathologist: Ja Steen MD Specimen: Skin, right lower back 5:43 PM CDT DERMATOPATHOLOGY LABORATORY Final Diagnosis Specimen A. 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 2 5:43 PM CDT DERMATOPATHOLOGY LABORATORY Gross Description Specimen A: Received is one formalin filled container labeled with the patient's name and designated right lower back. The specimen consists of a shave biopsy measuring 60l2e6up, bisected. Jar 0. 2 5:43 PM CDT [...] characteristic determined by the Dermatopathology Laboratory at [facility], directed by Dr. Jenny Steen. These tests need not be, and therefore are not, approved by the [place] Food and Drug Administration. The tests are used for clinical purposes. Billing Codes Specimen Charges Stain Charges 34902 1 2 5:43 PM CDT DERMATOPATHOLOGY LABORATORY Embedded Images 2 5:43 PM CDT DERMATOPATHOLOGY LABORATORY Pathology/Cytolog y TISSUE SPECIMEN FROM SKIN / Unknown 05/19/2022 05/20/2022 12:00 PM CDT Davin Ornelas MD LAB - PATHOLOGY/CYTOLOGY ORD ERABLES Final Result DERMATOPATHOLOGY LABORATORY [facility] - Department of Dermatology [address] [phone] documented in this encounter Visit Diagnoses Not on filedocumented in this encounter Care Teams Docking Pilot Relationship Specialty Start Date End Date Rene Austin MD [address] [place] [id number] PCP - General 05/05/18 documented as of this encounter
--- OUTSIDE RECORDS SUMMARY | 2025-03-13 17:37 | XMS_ITS | Data Portability ---
Author Organization [facility] Address [address] [place] [address] Care Team Providers Care Manager Sales Support Name Role Phone SOL ROJO Primary Care Provider Assessment Encounter Date Assessment Date Assessment LastModified [...] a year unless there are new symptoms. [email or web address] Not available 01/29/2025 17:17:07 Plan of Treatment Reminders Order Date Submit Date Provider Last Modified By Organization Details Last Modified Time Details Appointments None recorded. Lab testosteron e free/testos terone total, ratio, serum 2024 025 [facility] system (Lab), [address], [place], [address], 5 13:18:50 testosteron e, total, serum 2023 024 Health system (Lab), [address] [place], [address], 4 09:31:14 testosteron e, total, serum 2023 024 Health system (Lab), [address], [place], [address], 4 06:49:22 Referral None recorded. Procedures None recorded. Surgeries None recorded. Imaging MAMMO, screening, digital, bilateral 2024 025 [facility], [address], [place], [address], 5 04:10:00 MAMMO, screening, bilateral [address], [address], [place], [address], 4 15:05:51 MAMMO, screening, bilateral 2022 023 [facility], [address], [place], [address], 3 05:00:49 Medication Orders estradiol 1 mg tablet [address] [facility], [address] [place] [address], [address], 5 17:40:22 estradiol 1 mg tablet [address] [facility], [address] [place] [address], [address], 4 10:13:56 estradiol 1 mg tablet [address] [facility], [address] [place] [address], [address], 4 18:30:49 Patient TargetsNo targets recorded. Patient InstructionsNo instructions recorded. Reason for Referral None Reported. Results Created Date Observation Date Name Description Value Unit Range Abnormal Flag Note LastModifiedBy Organization Detail LastModifiedTime 01/30/20 24 01/30/2024 TESTO STERO NE, TOTAL testosterone , total 11 NG/dL 0-100 Not Available [facility] (Lab) [address] [place], [address], 01/31/2024 06:49:22 04/26/20 24 04/26/2024 TESTO STERO NE, TOTAL testosterone , total 330 NG/dL 0-100 high Not Available [facility] (Lab) [address] [place], [address], 04/27/2024 09:31:13 05/10/20 24 05/10/2024 DHEA SULFA TE DHEA-sulfate 87 ug/dL Femal e Range s Age(y ) Range (ug/d L) 10-15 34-28 0 15-20 65-36 8 20-25 148-4 07 25-35 99-34 0 35-45 61-33 7 45-55 35-25 6 55-65 19-20 5 65-75 9-246 > 75 12-15 4 Not Available [facility] (Lab) [address] [facility], [place], [address], 05/18/2024 00:34:04 05/10/20 24 05/10/2024 PROLA CTIN prolactin, total 5.56 NG/mL 4.79-2 3.30 This assay was perfo rmed using [employer] ratio n reage nts and test kits. Value s obtai tai with other assay metho ds or kits canno t be used inter estrada eably . Not Available [facility] (Lab) [address] [facility], [place], [address], 05/18/2024 00:34:05 05/10/20 24 05/10/2024 HUMAN SEX HORMO NE RC NG GLOBU VERONICA sex hormone binding globulin 24.1 nmole s/L 16.8-1 25.2 Not Available [facility] (Lab) [address] [place], [address], 05/18/2024 00:34:05 05/10/20 24 05/10/2024 TESTO STERO NE, FREE( DIALY SIS) AND TOTAL (LC/M S/MS) testosterone , total 393 NG/dL 2-45 high For addit ional nadya rojas e refer to http: //[facility] tomasa blum.que stdia gnost ics.c om/fa q/ Total Testo stero neLCM SMSFA Q165 (This link is being provi ded for infor scott nal/ educa edward l purpo ses only. ) This test was devel oped and its goyo tical perfo rmanc e sergei cteri stics have been deter mined by Lexity ostisra s Jose ls [place], [place]. It has not been clear ed or appro davon by the U.S. Food and Drug Admin istra tion. This assay has been valid ated pursu ant to the CLIA regul ation s and is used for clini anum purpo ses. Not Available [facility] (Lab) [address] [facility], [place], [address], 05/18/2024 00:34:06 05/10/20 24 05/10/2024 TESTO STERO NE, FREE( DIALY SIS) AND TOTAL (LC/M S/MS) testosterone , free 57.0 pg/mL 0.1-6. 4 high This test was devel oped and its goyo tical perfo rmanc e sergei cteri stics have been deter mined by Lexity madhuri s Jose ls [place], [place]. It has not been clear ed or appro davon by the U.S. Food and Drug Admin istra tion. This assay has been valid ated pursu ant to the CLIA regul ation s and is used for clini anum purpo ses. Perfo rming Organ izati on [facility] raudelsheyla blum: Site ID: AMD Name: Alhaji Aguayoo ls Insti miguel Addre ss: [id number] [facility] [place], [place] Direc tor: Josefina Mendoza MD PhD Not Available [facility] (Lab) [address] [place], [address], 05/18/2024 00:34:06 05/10/20 24 05/10/2024 17-OH PROGE [...] EZ Name: [facility] ostisra s/Evan narayanan SJC-S an One[place]is [place] , Addre ss: [id number] [facility] [place] [address] Direc tor: Majo tam MD,Ph D,SANYA Not Available [facility] (Lab) [address] [facility], [place], [address], 05/18/2024 00:34:06 06/29/20 24 06/29/2024 TESTO STERO NE, TOTAL testosterone , total 28 NG/dL 0-100 Not Available [facility] (Lab) [address] [place], [address], 07/09/2024 13:04:11 06/29/20 24 06/29/2024 TESTO STERO NE, FREE testosterone free 2.8 pg/mL 0.2-5. 0 The wilmer ntrat ion of free testo stero ne is deriv ed from a gerardo cortes model using total testo stero ne by LCMSM S, sex hormo ne rc ng globu veronica and album in. This test was devel oped and its goyo tical perfo rmanc e sergei cteri stics have been deter mined by Lexity ostic s Jose ls [facility] [[email or web address]][place], [place]. It has not been clear ed or appro davon by the U.S. Food and Drug Admin istra tion. This assay has been valid ated pursu ant to the CLIA regul ation s and is used for clini anum purpo ses. Perfo rming Organ izati on Brooke blum: Site ID: AMD Name: Alhaji dhaliwal s Jose ls [employer] Addre ss: [id number] [facility] [place], [place] Direc tor: Josefina Mendoza MD PhD Not Available [facility] (Lab) [address] [place], [address], 07/09/2024 13:04:11 01/30/20 25 01/29/2025 TESTO STERO NE, FREE( DIALY SIS) AND TOTAL (LC/M S/MS) testosterone , total 18 NG/dL 2-45 For addit ional infor nadya gill e refer to http: //[facility] tomasa blum.que stdia gnost ics.c om/fa q/ Total Testo stero neLCM [facility] Q165 (This link is being provi ded for infor scott nal/ educa edward l purpo ses only. ) This test was devel oped and its goyo tical perfo rmanc e sergei cteri stics have been deter mined by Lexity ostic s Jose ls [facility] [[email or web address]]i [place], [place]. It has not been clear ed or appro davon by the U.S. Food and Drug Admin istra tion. This assay has been valid ated pursu ant to the CLIA regul ation s and is used for clini anum purpo ses. Not Available [facility] (Lab) [address] [place], [address], 02/07/2025 13:18:50 01/30/20 25 01/29/2025 TESTO STERO NE, FREE( DIALY SIS) AND TOTAL (LC/M S/MS) testosterone , free 2.4 pg/mL 0.1-6. 4 This test was devel oped and its goyo tical perfo rmanc e sergei cteri stics have been deter mined by Lexity madhuri s Jose ls [place], [place]. It has not been clear ed or appro davon by the U.S. Food and Drug Admin istra tion. This assay has been valid ated pursu ant to the CLIA regul ation s and is used for clini anum purpo ses. Perfo rming Organ izati on Infor matio n: Site ID: AMD Name: Lexity ostisra s Jose ls [facility] Addre ss: [id number] [place], [place] Direc tor: Josefina Mendoza MD PhD Not Available [facility] (Lab) [address] [facility], [place], [address], 02/07/2025 13:18:50 02/24/20 22 02/22/2022 MAMMO , scree rosalinda, bilat eral No observ ation record ed. [facility] [address], [place], [address], 05/19/2023 13:58:37 05/30/20 24 05/29/2024 MAMMO , scree rosalinda, bilat eral No observ ation record ed. [facility] [address], [place], [address], 05/31/2024 15:34:40 Result Notes None recorded. Problems Name Problem SNOMED Code Status Onset Date Resolution Date Notes Provider Name and Address Organization Details Recorded Time Secondar y amenorrh ea 144553350 Completed 201410/27/2021 Secondary amenorrhe a;Practic e ID: 0001 [facility]:15:11 Pregnanc y test negative 594007496 Completed 201410/27/2021 Encounter for test, result negative; Practice ID: 0001 Nelly mitchell [facility] 23:15:01 Miscarri age 30229524 Completed 201510/27/2021 Complete or unsp spontaneo us without complicat ion;Pract ice ID: [address] [facility] 23:14:54 Pelvic and perineal pain 910583553 Completed 201510/27/2021 Pelvic and perineal pain;Prac meagan ID: [address] [facility] 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 23:15:17 Screenin g for malignan t neoplasm of rectum Completed 201610/27/2021 Encounter for screening for malignant neoplasm of rectum;Pr actice ID: [address] [facility] 23:15:09 Insertio n of intraute rine contrace ptive device Completed 201610/27/2021 Encounter for insertion of intrauter ine contracep tive device;Pr actice ID: [address] [facility] 23:14:37 Contrace ptive sheath status 562707258 Completed 201610/27/2021 Encounter for routine checking of intrauter ine contracep dev;Pract ice ID: [address] [facility] 23:14:30 Removal of intraute rine device Completed 201610/27/2021 Encounter for removal of intrauter ine contracep tive device;Pr actice ID: [address] [facility] 23:15:03 Migraine 93746673 Completed 201710/27/2021 Migraine, unsp, not intractab le, without status migrainos us;Practi ce ID: [address] [facility] 23:14:51 Backache 826801150 Completed 201710/27/2021 Dorsalgia , unspecifi ed;Practi ce ID: [address] [facility] 23:14:13 Finding of menstrua l bleeding Completed 201710/27/2021 Excessive and frequent menstruat ion with regular cycle;Pra ctice ID: [address] [facility] 23:14:[address] Concept Completed 201710/27/2021 Encntr for general adult medical exam w/o abnormal findings; Recorded Elsewhere : No Locati on: [facility] So urce: EHR Chron ic: N Practic e ID: 0001 Bill able Time: 08:30:[address] [facility] 23:15:14 Clinical finding Completed 201610/27/2021 Presence of (intraute rine) contracep tive device;Re corded Elsewhere : No Locati on: [facility] So urce: EHR Chron ic: N Practic e ID: 0001 Bill able Time: 08:00:[address] [facility] 23:14:22 Screenin g for malignan t neoplasm of cervix Completed 201310/27/2021 Screening for malignant neoplasms of the cervix;Re corded Elsewhere : No Locati on: [facility] So urce: EHR Chron ic: N Practic e ID: 0001 Bill able Time: 11:00:00 AM Nelly mitchell [facility] 23:15:06 Left lower quadrant pain 395358194 Completed 201410/27/2021 Abdominal pain in the left lower belly;Rec orded Elsewhere : No Locati on: [facility] So urce: EHR Chron ic: N Practic e ID: 0001 Bill able Time: 03:15:00 PM Nelly mitchell [facility] 23:14:39 Hormone replacem ent therapy Completed 201910/27/2021 Hormone replaceme nt therapy;R ecorded Elsewhere : No Locati on: [facility] So urce: EHR Chron ic: N Practic e ID: 0001 Bill able Time: 09:45:00 AM Nelly mitchell [facility] 23:14:34 Speciali zed medical examinat ion Completed 201010/27/2021 Routine gynecolog ical examinati on;Practi ce ID: [address] [facility] 23:15:20 Contrace ption care Completed 201310/27/2021 General counselin g on initiatio n of other contracep tive measures; Practice ID: 0001 Nelly mitchell [facility] 23:14:28 Leukocyt osis 680224261 Completed 201410/27/2021 LEUKOCYTO SIS NOS;Pract ice ID: [address] [facility] 23:14:43 Microsco pic hematuri a 449905206 Completed 201410/27/2021 HEMATURIA MICROSCOP IC;Practi ce ID: 0001 Nelly Inman [facility] 23:14:49 Abdomina l pain 51733888 Completed 201410/27/2021 Abdominal pain, unspecifi ed site;Prac meagan ID: 0001 Nelly Inman [facility] 1 23:14:09 Adult health examinat ion Completed 201410/27/2021 Routine general medical examinati on at a health care facility; Practice ID: 0001 Nelly mitchell [facility] 1 23:14:11 Menstrua l migraine 70294877 Completed 201710/27/2021 Menstrual migraine, not intractab le, w/o status migrainos us;Practi ce ID: 0001 Nelly mitchell [facility] 23:14:46 Pain in female genitali a Completed 201710/27/2021 Dysmenorr hea, unspecifi ed;Practi ce ID: 0001 Nelly mitchell [facility] 23:14:56 Body mass index 30+ - obesity 370572861 Completed 201710/27/2021 Body mass index (BMI) 50-59.9 , adult;Rec orded Elsewhere : No Locati on: [facility] So urce: EHR Chron ic: N Practic e ID: 0001 Bill able Time: 08:30:00 AM Nelly mitchell [facility] 23:14:15 Radiolog ic finding 188691751 Completed 201610/27/2021 Oth abn and inconclus barbara findings on dx imaging of breast;Re corded Elsewhere : No Locati on: [facility] So urce: EHR Chron ic: N Practic e ID: 0001 Bill able Time: 02:44:55 PM Nelly mitchell [facility] 23:14:18 Problem Notes None recorded. Procedures Surgical History Date Name Laterality Status Provider Name and Address Organization Details Recorded Time 05/29/20 Date of Last Mammogram completed Emani Christensen [facility] 01/29/2025 17:16:37 11/09/20 23 Most Recent Bone Density completed [facility] 01/24/2024 17:50:12 10/03/20 23 Date of Last Colonoscopy completed Karey [facility] 01/24/2024 17:49:09 05/16/20 23 procedure on back completed [facility] 01/24/2024 17:52:18 12/08/19 22 TOTAL LAPAROSCOPIC HYSTERECTOMY (SURG) completed Mechelle Louis [facility] 12/09/2021 10:37:01 11/02/20 21 Date of Last Pap Smear completed [facility] 01/24/2024 17:39:22 06/02/20 18 diagnostic laparoscopy completed Yeniobed Middleton [facility] 10/31/2021 09:39:52 06/02/20 18 salpingo-oophore ctomy completed [facility] 10/31/2021 09:39:16 Imaging Results Imaging Date Name Status LastModified by Organiz ation Details LastModified Time 02/22/2022 MAMMO, screening, bilateral completed [address] [facility] [address], [place], [address], 05/19/2023 13:58:37 05/29/2024 MAMMO, screening, bilateral completed [facility] [address], [place], [address], 05/31/2024 15:34:40 Procedure Notes None recorded. Medical [...] Prescrib ed Elsewher e: Yes [facility] By: yahaira cruz DateTime : 03/24/20 [...] Prescrib ed Elsewher e: No [facility] By: smcaley Christian johnson DateTime : 03/26/20 15 04:13:12 PM Not Available Not Available Not [...] Prescrib ed Elsewher e: Yes Loca tion: [facility] odify By: amkuhl Camilla ncounter DateTime : 03/24/20 15 03:15:00 PM Not Available Not Available Not Available Provera 10 mg tablet take 1 tablet by oral route every day 09/21 completed Prescrib ed Elsewher e: No Locat ion: [facility] odify By: lili Sampson ncounter DateTime : 11/25/19 16 05:15:00 PM Not Available Not Available Not Available hydrochlo rothiazid e 25 mg tablet TAKE 1 TABLET BY MOUTH ONCE DAILY active Not Available Not Available No t Available [place] 10 mg-325 mg tablet take 1 tablet by oral route every 4 - 6 hours as needed for pain 12/01 completed Prescrib ed Elsewher e: No Locat ion: [facility] odify By: santiago Sampson ncounter DateTime : 05/02/20 18 11:25:17 [...] Prescrib ed Elsewher e: Yes [facility] od[facility] By: ever johnson DateTime : 08/03/20 03:54:08 PM Not Available [...] oral route every day 03/24 completed Prescrib ed Elsewher e: No Locat ion: [facility] odify By: yahaira cruz DateTime : 09/03/20 [...] Updated DateTime 12/16/2021 158.12 cm 54.2 kg/m2 770453.1 2 g 135 mm[Hg] 82 mm[Hg] Jennifer Be [facility] 14:02:31 Date Recorded Body weight Provider Name an d Address Organization Details Last Updated DateTime 01/19/2023 476929.35 g Nelly Sparks [facility] 01/19/2023 16:36:27 Date Recorded Systolic blood pressure Diastolic blood pressure Provider Name and Address Organization Details Last Updated DateTime 01/19/2023 126 mm[Hg] 74 mm[Hg] Bharati Kramer, VANESA- [address], [place], [address], [facility] 01/19/2023 17:09:43 Date Recorded Body height Body mass index (BMI) Body weight Systolic blood pressure Diastolic blood pressure Provider Name and Address Organization Details Last Updated DateTime 01/29/2025 158.12 cm 53.2 kg/m2 639447.5 6 g 171 mm[Hg] 74 mm[Hg] Emani Christensen [facility] 17:26:37 Social History Question Answer Notes LastModified by Organizat ion Details LastModified Time Tobacco Smoking Status Never Smoker Jaylene Dickinson stephen, [facility] 12/16/2021 13:48:12 Do You Have An [...] Or The Highest Degree You Have Received? [id number] [email or web address] Information not available 01/29/2025 What Is Your [...] Anxious, Or Unable To Sleep At Night)? [id number] Information not available 11/02/2021 Do You Use [...] by Organization Details LastModified Time Father Leukemia [email or web address] Not availabl e 01/29/2025 17:12:19 Maternal Aunt Endometriosi s (clinical) [email or web address] Not available 09/2025 17:12:19 Maternal Aunt Diabetes mellitus Not available 2020 23:17:21 Maternal Aunt Hypertensive disorder Not available 2020 23:17:34 Maternal Grandfather Heart disease Not available 2020 23:17:53 Maternal Grandfather Hypertensive disorder Not available 2020 23:18:00 Maternal Grandmother Hypertensive disorder Not available 2020 23:18:13 Maternal Grandmother Diabetes mellitus Not available [...] SNOMED-CT Code Diagnosis ICD10 Code Diagnosis Note [id number] Shantanu Kimbrough MD [facility] [address] [address] 10/28/2021 17:39:37 10/29/2021 09:43:10 Uterine leiomyoma 77880230 D25.9 Pain in pelvis 50406128 R10.2 this patient is a 50-year-ol d [...] and some of her other medical problems. [id number] Melody Crowder [facility] [address] [address] 10/29/2021 16:55:02 10/29/2021 17:45:48 Uterine leiomyoma 68495335 D25.9 R10.2 [id number] Shantanu Kimbrough MD [facility] [address] [address] 10/31/2021 10:09:38 10/31/2021 11:57:29 Pain in pelvis 69078389 R10.2 this patient is a 50-year-ol d [...] agreed to total laparoscop ic hysterecto my. [id number] [facility]ramer [facility] [address] [address] 11/02/2021 16:32:36 11/03/2021 18:39:42 Gynecologic examination 16093227 Z01.419 Suggested Calcium with Vitamin D 1200-1500m g daily. Patient advised to get an annual flu shot in the fall and she could obtain at [facility] or [facility] clinic. Also to obtain TDap vaccinatio n [...] nogamousNo t current SA-spouse has health issues. [id number] Shantanu Kimbrough MD [facility] [address],[place] [address] 12/02/2021 15:43:45 12/03/2021 15:24:28 Pain in pelvis 59207119 R10.2 Uterine leiomyoma 780313 05 D25.9 R10.2 this patient is a 51-year-ol d female with pelvic pain and uterine fibroids. We have agreed to perform total laparoscop ic hysterecto my. She understand s the risks, benefits, and alternativ es. She has completed the informed consent process and is ready to proceed. [id number] Shantanu Kimbrough MD [facility] [address],[facility] [place] [address] 12/11/2021 09:24:59 12/11/2021 09:26:43 [id number] Shantanu Kimbrough MD [facility] [address],[facility] [place] [address] 12/16/2021 13:45:07 12/17/2021 14:43:20 Postoperative care 280441484 Z48.89 this patient is a 51 year female presents for postop follow-up. She is 1 week postop from a total laparoscop ic hysterecto my. She has no complaints . Her incisions are clean dry and intact. She has minimal pain. She is recovering normally. She will follow-up as needed. [id number] Bharati Kramer , [facility] [address] [address] 01/19/2023 16:22:33 01/19/2023 17:43:31 Gynecologic examination 31523733 Z01.419 Z11.51 Suggested Calcium with Vitamin D 1200-1500m g daily. Patient advised to get an annual flu shot in the fall and she could obtain at [facility] or [facility]. Also to obtain TDap vaccinatio n if [...] moving forwarded if needed. Screening mammography 24 796518 Z12.31 [id number] Bharati Kramer [facility] [address] [address] 01/24/2024 17:36:45 01/26/2024 10:59:21 Gynecologic examination 79036569 Z01.419 Z11.51 Suggested Calcium with Vitamin D 1200-1500m g daily. Patient advised to get an annual flu shot in the fall and she could obtain at [facility] or [facility] care clinic. Also to obtain TDap vaccinatio [...] PCPRoutine Labs PCPMammo ordered Screening mammography 24 173838 Z12.31 Reduced libido 8845924 R 68.82 Call out testostero ne cream2 clicks to each inner thigh daily Counseled on medication R/B's, Most common side effects, & use. All questions were answered to patient satisfacti on. RTO x 3mos med checkWill repeat T-level at that time Menopausal symptom 00556 002 N95.1 Post-hyset erectomy for non-cancer ous [...] migraine w/ visual changes, breast cancer dx, MD/stroke, DVT/PE, Endometria l cancer. Please contact office with any new or worsening side effects or adverse reactions. Or if a medical emergency please go to nearest ED/[facility] care for further evaluation . [id number] AUBRIE Judge-[facility] [address] [address] 04/26/2024 08:58:22 04/26/2024 10:19:25 Reduced libido 4934403 R68.82 RF sentUpdate d labs orderedAs long as Total T levels stay within normal range and she is achieving her goals on current dose then RF can be sent x 1yr Menopausal symptom [id number] N95.1 Doing well on Estradiol 1mg.Energy levels backImprov ed vasomotor sx'sImprov ed a overall well-being We agreed to continue therapy at this time unless otherwise indicated. Time spent in visit is a total of 21 mins with at least 50% of visit consisting of counseling and review of plan of care. [id number] NANCY HACKETT NP [facility] [address] [address] 01/29/2025 17:11:37 01/30/2025 13:11:52 Menopausal symptom [id number] N95.1 Hx hysterecto my with BSO for [...] migraine w/ visual changes, breast cancer dx, MD/stroke, DVT/PE, Endometria l cancer. Please contact office with any new or worsening side effects or adverse reactions. Or if a medical emergency please go to nearest ED/[facility] for further evaluation . Gynecologi c examination [id number] Z01.419 Annual gynecologi anum exam performed. Patient [...] STI testing - declined Screening mammography 24 [id number] Z12.31 Reduced libido [id number] R 68.82 Patient reports improvemen t in libido since using testostero ne cream - 1 click on one thigh, three times weekly.Upd ated labs ordered to assess testostero ne levelsAs long as Total T levels stay within normal range and she is achieving her goals on current dose then RF can be sent x 1yr to [facility] - will await results prior to ordering. Health Concerns Section Related Observation LastModified by Organization Detai ls LastModified Time None Recorded Concern Status LastModified by Organization Details LastModified Time None Recorded Advance Directives Directive N: Payers Encounter Date Sequence Insurance Name Policy Number Policy Romero Covered Member ID Romero Member ID Guarantor Name 12/16/2021 1 [facility] (PPO) [id number] Aristeo B Krysten [id number] Aristeo Krysten 01/19/2023 1 [facility] (PPO) [id number] Aristeo B Krysten [id number] Aristeo Krysten 01/24/2024 1 [employer] [id number] Aristeo Krysten [id number] Aristeo Krysten 04/26/2024 1 [employer] [id number] Aristeo Krysten [id number] Aristeo Krysten 01/29/2025 1 [employer] [id number] Aristeo Bashir [id number] Aristeo Bashir Notes Date Note Type Note [...] will follow-up as needed. Shantanu Kimbrough MD [address], [place], [address], [facility] 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 01/26/2024 10:53:54 04/26/2024 text/html Here for medication check of HRT for post-menopause. Bharati Kramer [facility] [address], [place], [address], [facility] 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 NANCY HACKETT NP [address], [place], [address], [facility] 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
== END 2025-03-13 16:07 | disposition home or self-care (01) ==
PROVIDERS: PCP Family Medicine; Visit Provider Physician Assistant
DX: N20.1 Calculus of ureter (principal); R14.0 Abdominal distension (gaseous)
CPT/HCPCS: 74018; 76770

== ENCOUNTER 2025-07-10 12:52 | Outpatient (CLI) | payer BC, SELFPAY ==
--- NOTE | ~2025-07-10 | MM_ITS ---
EXAMINATION: MM screening [facility] BI w madeleine HISTORY: Screening mammogram TECHNIQUE: Craniocaudal and mediolateral oblique 3-D tomosynthesis images were obtained and synthetic 2-D images were generated. CAD analysis was submitted and interpreted. COMPARISON: 05/29/2024, 04/04/2023, 02/22/2022 BREAST PARENCHYMAL COMPOSITION:Not Dense. There are scattered areas of fibroglandular density. FINDINGS: No suspicious mass, calcification, or architectural distortion are identified in either breast to suggest malignancy. There has been no suspicious interval change. IMPRESSION: No mammographic evidence of malignancy. Recommend routine screening mammography in one year. BI-RADS Category 1: Negative Reviewed, dictated and finalized at location .
== END 2025-07-10 12:53 | disposition home or self-care (01) ==
PROVIDERS: PCP Family Medicine; Visit Provider Student in an Organized Health Care Education/Training Program
DX: Z12.31 Encounter for screening mammogram for malignant neoplasm of breast (principal)
CPT/HCPCS: 77063; 77067

== ENCOUNTER 2025-07-18 12:16 | Outpatient (CLI) | payer BC, SELFPAY ==
--- NOTE | ~2025-07-18 | XR_ITS ---
EXAMINATION: XR knee LT 3V, 07/18/2025 12:21 CDT HISTORY: M25.562 - Pain in left knee COMPARISON: No comparisons available. Findings: No acute fracture or malalignment. No significant degenerative changes. Soft tissues unremarkable. Impression: No acute fracture or malalignment. Reviewed, dictated and finalized at location A. Impression: No acute fracture or malalignment.
== END 2025-07-18 12:17 | disposition home or self-care (01) ==
PROVIDERS: PCP Family Medicine; Visit Provider Family Medicine
DX: M25.562 Pain in left knee (principal); M25.362 Other instability, left knee
CPT/HCPCS: 73562

== ENCOUNTER 2025-11-01 15:22 | Outpatient (CLI) | payer BC, SELFPAY ==
--- NOTE | 2025-11-01 15:43 | ECG_ITS ---
Test Date: 2025-11-01 15:51:47 Measurements Intervals [place] Rate: 97 P: 51 MN: 139 QRS: -3 QRSD: 139 T: 31 QT: 356 QTc: 454 Interpretive Statements SINUS RHYTHM RIGHT BUNDLE BRANCH BLOCK BASELINE WANDER- V3 ABNORMAL ECG Compared to ECG 07/16/2024 09:09:03 Right bundle-branch block now present Electronically Signed On 11-01-2025 16:08:02 PARENT EDUCATOR by Brenton Nunez D.O.
[2025-11-01 16:00] LABS: Hematocrit 45.5 % (37.0-47.0); Hemoglobin 15.3 g/dL (12.0-15.0); Immature Granulocyte Percent A 0.3 % (0-0.5); Lymphocytes Absolute Auto 2.43 K/mm3 (0.9-3.2); Mean Corpuscular HGB Conc 33.6 g/dl (32-36); Mean Corpuscular Hemoglobin 29.7 pg (26-34); Mean Corpuscular Volume 88.3 fl (80-100); Nucleated Red Blood Cells Absolute Auto 0.000 K/mm3 (0.0-0.012); Nucleated Red Blood Cells Perc 0.0 % (0.0-0.2); Platelet Count Result 338 k/mm3 (150-375); Red Blood Count 5.15 M/mm3 (4.2-5.4); White Blood Count 10.2 K/mm3 (4.5-10.0)
[2025-11-01 16:17] LABS: Anion Gap 6 mmol/L (4-12); Blood Urea Nitrogen 18 mg/dL (7-17); Calcium 10.1 mg/dL (8.4-10.2); Carbon Dioxide 25 mmol/L (22-30); Chloride 106 mmol/L (98-107); Estimated Glomerular Filt Rate > 60; Glucose 99 mg/dL (65-110); Potassium 3.9 mmol/L (3.4-5.0); Sodium 137 mmol/L (137-145)
[2025-11-01 16:39] LABS: Add Urine Microscopic? NO; Appearance Urine Clear (Clear); Glucose Urine UA Negative (Negative); Leukocyte Esterase Ur Negative LEU/UL (Negative); Nitrate Urine Negative (Negative); Specific Grav Ur 1.015 (1.001-1.035)
== END 2025-11-01 15:23 | disposition home or self-care (01) ==
PROVIDERS: PCP Family Medicine; Visit Provider Orthopaedic Surgery
DX: I10 Essential (primary) hypertension (principal); E11.9 Type 2 diabetes mellitus without complications; R53.83 Other fatigue
CPT/HCPCS: 36415; 80048; 81003; 85025; 93005